=== PATIENT | male | born 1945 | race Caucasian/White ===

== ENCOUNTER → 2019-04-12 07:56 | Outpatient (BNVA) | payer MEDICARE, OTHER, SELFPAY | PROVIDERS: Family Provider Family Medicine; PCP Family Medicine; Visit Provider Urology | DX: R97.20 Elevated prostate specific antigen [PSA] (principal); N40.1 Benign prostatic hyperplasia with lower urinary tract symptoms; N40.0 Benign prostatic hyperplasia without lower urinary tract symptoms | CPT/HCPCS: 81001; 84153 ==

== ENCOUNTER → 2019-10-11 07:54 | Outpatient (BNVA) | payer MEDICARE, OTHER, SELFPAY | PROVIDERS: Family Provider Family Medicine; PCP Family Medicine; Visit Provider Urology | DX: N40.0 Benign prostatic hyperplasia without lower urinary tract symptoms (principal) | CPT/HCPCS: 81001 ==

== ENCOUNTER → 2019-10-27 15:09 | Outpatient (BNVA) | payer MEDICARE, OTHER, SELFPAY | PROVIDERS: Family Provider Family Medicine; PCP Family Medicine; Visit Provider Nurse Practitioner Family | DX: I50.32 Chronic diastolic (congestive) heart failure (principal); I25.10 Atherosclerotic heart disease of native coronary artery without angina pectoris; I25.2 Old myocardial infarction | CPT/HCPCS: 80048; 83880 ==

== ENCOUNTER 2019-11-21 15:27 | Outpatient (CLI) | payer MEDICARE, OTHER, SELFPAY ==
--- NOTE | 2019-11-21 15:45 | USCV_ITS ---
Vin Pena Age: 74 Gender: M : 1945 Exam Date: 11/21/2019 15:47 Ordering Phys: Catie Arora Technologist: Grant Moses [place] [facility] [place]: CHF BP: 180 / 100 HR: 99 Rhythm: Sinus Technical Quality: Adequate MEASUREMENTS (Male / Female) Normal Values 2D ECHO LV Diastolic Diameter PLAX 3.3 cm 4.2 - 5.9 / 3.9 - 5.3 cm LV Systolic Diameter PLAX 2.0 cm IVS Diastolic Thickness 1.2 cm 0.6 - 1.0 / 0.6 - 0.9 cm IVS Systolic Thickness 1.6 cm LVPW Diastolic Thickness 1.2 cm 0.6 - 1.0 / 0.6 - 0.9 cm LVPW Systolic Thickness 1.7 cm LVOT Diameter 2.0 cm LV Ejection Fraction 2D Teich 70.5 % LV Ejection Fraction MOD 2C 69.4 % LV Ejection Fraction 2C AL 70.0 % LA Diameter 3.5 cm Aorta at Sinotubular Diameter 1.5 cm M-MODE LV Diastolic Diameter MM 4.1 cm 4.2 - 5.9 / 3.9 - 5.3 cm LV Systolic Diameter MM 2.2 cm LV Ejection Fraction MM Teich 78.9 % IVS Diastolic Thickness MM 1.1 cm 0.6 - 1.0 / 0.6 - 0.9 cm IVS Systolic Thickness MM 1.7 cm LVPW Diastolic Thickness MM 1.4 cm 0.6 - 1.0 / 0.6 - 0.9 cm LVPW Systolic Thickness MM 1.7 cm RV Diastolic Diameter MM 1.5 cm Aortic Annulus Diameter 3.5 cm LA Ao Ratio MM 1.1 MV E Point Septal Separation 0.4 cm DOPPLER AV Peak Velocity 344.0 cm/s MV Area PHT 5.0 cm squared Mitral E to A Ratio 0.8 MV E' Velocity 47.5 cm/s Mitral E to MV E' Ratio 17.6 Mitral E to LV E' Lateral Ratio 12.0 Mitral E to LV E' Septal Ratio 32.5 TR Peak Velocity 276.0 cm/s TR Peak Gradient 30.5 mmHg TV Peak E Velocity 149.0 cm/s Right Atrial Pressure 3.0 mmHg Pulmonary Artery Systolic Pressu 33.5 mmHg PV Peak Velocity 108.0 cm/s FINDINGS Left Ventricle Normal left ventricular size and systolic function, EF 67 %. Mild left ventricular hypertrophy. No regional wall motion abnormalities. Grade I/IV diastolic dysfunction (abnormal relaxation filling pattern), normal to mildly elevated filling pressures. Right Ventricle Normal right ventricular size and systolic function. Right Atrium The right atrium is normal in size. Left Atrium Mildly increased left atrial size. Mitral Valve Thickened mitral valve. Mild mitral annular calcification. Aortic Valve Possibly moderate aortic valve stenosis with a peak velocity of 3.26 m/s, peak gradient of 43 and a mean gradient of 19 mmHg. The valve area was not calculated Tricuspid Valve No gross abnormalities noted Pulmonic Valve Pulmonic valve not well visualized. Pericardium Normal pericardium without effusion. Aorta Normal ascending aorta dimension. CONCLUSIONS Normal left ventricular size and systolic function, EF 67 %. Mild left ventricular hypertrophy. No regional wall motion abnormalities. Grade I/IV diastolic dysfunction (abnormal relaxation filling pattern), normal to mildly elevated filling pressures. Mildly increased left atrial size. Thickened mitral valve. Mild mitral annular calcification. Possibly moderate aortic valve stenosis with a peak velocity of 3.26 m/s, peak gradient of 43 and a mean gradient of 19 mmHg. The valve area was not calculated There is no pericardial effusion. There are no intracardiac masses. Compared to the study from 02/27/2018, there may not be a significant change Dr Jasmine Kemp MD FACC (Electronically Signed) Final Date: 21 November 2019 19:19 S
== END 2019-11-21 15:28 | disposition home or self-care (01) ==
LOC: RAD 15:31
PROVIDERS: PCP Family Medicine; Visit Provider Nurse Practitioner Family
DX: I50.9 Heart failure, unspecified (principal); I35.0 Nonrheumatic aortic (valve) stenosis; I05.9 Rheumatic mitral valve disease, unspecified
CPT/HCPCS: 93306

== ENCOUNTER 2019-12-27 08:15 | Outpatient (CLI) | payer MEDICARE, OTHER, SELFPAY ==
[2019-12-27 08:30] VITALS: BMI 31.7
--- NOTE | 2019-12-27 09:03 | ECG_ITS ---
[facility] Test Date: 2019-12-27 Pat Name: Vin Pena Department: Room: Gender: Male Relationship Executive: : 1945 Requested By: Catie Arora Order Number: [id number] Heather MD: Jasmine Kemp M.D. Interpretive Statements NAME OF STUDY: LEXISCAN SESTAMIBI STRESS TEST INDICATION: Fatigue; Shortness of Breath PROCEDURE: At the baseline, the EKG revealed sinus rhythm with a rate of 89 bpm. Poor R wave progression. Possible old inferior wall RI. The baseline blood pressure was 163/112 mm Hg with a heart rate of 88 beats/min. Lexiscan was infused over a period of 20 seconds. A total of 0.4 milligrams of Lexiscan was infused. The stress phase was continued for a total of 5 minutes. Heart rate at the end of the stress phase was 103 with a blood pressure 154/99. The EKG at the peak infusion revealed no significant changes. Sestamibi was injected 20 seconds after the Lexiscan infusion. Blood pressure at the end of the recovery phase was 159/104 with a heart rate of 102 per minute. CONCLUSION: 1. No significant EKG changes with the LexiScan infusion 2. No LexiScan induced chest pain or cardiac arrhythmia 3. Normal blood pressure and heart rate response 4. Sestamibi/sestamibi perfusion scan pending; see separate report. Electronically Signed On 12-27-2019 18:23:33 BRAILLE OPERATOR by Jasmine Kemp M.D. [email or web address]
--- NOTE | 2019-12-27 09:03 | NMCV_ITS ---
NM amalia perf SPECT r/s* [id number] Vin Pena Age: 74 Gender: M : 1945 Exam Date: 12/27/2019 09:12 Ordering Phys: Catie Arora Technologist: JEAN CARLOS Waldron Exam Location: [facility] Indications: FATIGUE STRESS TEST Please see separate stress test report in [facility] for full findings IMAGE PROTOCOL Rest/Stress 1 Lexiscan Day Radiopharmaceutical Dose (mCi) Administration Site Administered by Rest: Tc-99m 10.8 IV JEAN CARLOS Waldron Sestamibi Stress:Tc-99m 32.9 IV Effie Barrera, HEALTH INFORMATION PROVIDER Sestamibi Rest: 27-Dec-2019 60 Discovery 630 Stress: 27-Dec-2019 60 Discovery 630 0.4mg Lexiscan. Supine position only as patient was unable to lay prone. SPECT RESULTS Technical Quality: Good Raw Data Analysis: Normal Image Corrections: No attenuation or motion correction applied Summed Stress Score: 21 Summed Rest Score: 9 Summed Difference Score: 12 PERFUSION FINDINGS Moderate to large area of severely decreased tracer uptake in the basal mid and apical inferior, basal and mid inferolateral, mid anterolateral, apical lateral and LV apex. Significant reversibility was noted in these regions. FUNCTIONAL RESULTS (calculated via Gated SPECT) Stress Image LV EF (%): 70 Stress EDV (mL):91 TID: 1.09 Stress ESV (mL):27 FUNCTIONAL FINDINGS: Segmental wall motion analysis revealing no gross wall motion of normalities. IMPRESSIONS 1. Myocardial perfusion may revealing moderate to large area of severely decreased tracer uptake in the inferior, inferolateral, anterolateral and apical regions with significant reversibility, suggestive of myocardial scarring with ischemia in the distribution of the right coronary artery/circumflex artery. Small area of ischemia in the distribution of the left anterior descending artery. 2. Normal LV ejection fraction of 70%. 3. LV wall motion analysis revealing no gross wall motion abnormalities. 4. Normal LV volume. No similar previous studies are available for comparison Dr Jasmine Kemp MD FAC (Electronically Signed) Final Date: 27 December 2019 12:31 S
--- NOTE | 2019-12-27 10:09 | SUR.PREOP ---
Patient report no pain or discomfort prior to the start of the procedure.
[2019-12-27] MEDS: regadenoson 0.4 Mg/5 ml Syringe IVP (10:10)
[2019-12-27 10:43] VITALS: BP 155/99; PULSE 99
== END 2019-12-27 08:16 | disposition home or self-care (01) ==
LOC: CDL 08:16
PROVIDERS: PCP Registered Nurse; Visit Provider Nurse Practitioner Family
DX: I25.10 Atherosclerotic heart disease of native coronary artery without angina pectoris (principal); R06.02 Shortness of breath; R53.83 Other fatigue
CPT/HCPCS: 78452; 93017; A9500; J2785

== ENCOUNTER 2020-01-11 10:21 | Outpatient (CLI) | payer MEDICARE, OTHER, SELFPAY ==
[2020-01-11 10:59] LABS: Basophils % 0.6 %; Eosinophils # 0.2 10^3/uL (0.0-0.8); Eosinophils % 3.4 %; Hematocrit 40.7 % (42.0-52.0); Hemoglobin 12.4 g/dL (11.7-16.6); Lymphocytes # 0.8 10^3/uL (0.8-4.8); Lymphocytes % 13.5 %; Mean Corpuscular HGB Conc 30.5 g/dL (30.0-36.0); Mean Corpuscular Hemoglobin 23.5 pg (28.0-34.0); Mean Corpuscular Volume 77.2 fL (80-94); Mean Platelet Volume 9.5 fL (7.4-10.4); Monocytes # 0.5 10^3/uL (0.2-0.9); Monocytes % 8.1 %; Neutrophils # 4.54 10^3/uL (1.8-7.7); Neutrophils % 73.8 %; Nucleated Red Blood Cells % 0 %; Platelet Count 252 10^3/cmm (130-400); Red Blood Count 5.27 10^6/uL (4.1-5.3); Red Cell Distribution Width 15.6 % (12.1-15.1); White Blood Count 6.2 10^3/uL (4.0-10.0)
[2020-01-11 11:17] LABS: Anion Gap 14.1 (5-19); Blood Urea Nitrogen 20 mg/dL (8-23); Calcium 9.2 mg/dL (8.5-10.5); Carbon Dioxide 29 mmol/L (22-29); Chloride 96 mmol/L (98-107); Glucose 285 mg/dL (65-115); Osmolality Calculated 295 mOsm/kg (285-295); Potassium 3.1 mmol/L (3.5-5.1); Sodium 136 mmol/L (136-145)
== END 2020-01-11 10:22 | disposition home or self-care (01) ==
PROVIDERS: PCP Registered Nurse; Visit Provider Nurse Practitioner Family
DX: I25.10 Atherosclerotic heart disease of native coronary artery without angina pectoris (principal); R94.39 Abnormal result of other cardiovascular function study
CPT/HCPCS: 36415; 80048; 85025; 87635

== ENCOUNTER 2020-01-16 06:50 | Day surgery (SDC) | payer MEDICARE, OTHER, SELFPAY ==
[2020-01-16] VITALS (12 sets, daily range): BP systolic 131–207; BP diastolic 83–116; PULSE 73–93; RESP 15–21; TEMP 36.7; O2SAT 17–100; BMI 31.8
--- NOTE | 2020-01-16 07:10 | XACV_ITS ---
Ht: 175 cm Wt: 98 kg BSA: 2.21 m2 Gender: Male : 1945 Any Known Allergies: Other Exam Priority: Routine Procedure(s): Procedure Description: Diagnostic procedure Procedure Description: Left Heart Catheterization Procedure Description: Left ventriculography Procedure Description: Coronary Angiography Diagnostic Cath Status: Elective Diagnostic Findings * LM has 0% stenosis. * LAD has 0% stenosis. * CX has 0% stenosis. * 1st OM: Severe 99% stenosis, SOURAV: 2 flow. * dRCA: Severe 100% stenosis, SOURAV: 0 flow. * 3rd OM to CIRC AV collateralization. * Coronary angiography shows right dominance. Interventional Findings * dRCA: 100% stenosis treated with AB MINI TREK 2.00X12 RX BALLOON. 0% residual stenosis, SOURAV: 3 flow. Conclusions 1. There is severe coronary artery disease with one vessel disease. 2. All florian are normal. 3. Hyperdynamic left ventricular systolic function. Ejection fraction of 70%. 4. dRCA was treated with Balloon. Recommendations * Continue current medical management and risk factor modification. Diagnostic RX Recommendation: medical therapy and/or counseling Ventriculography Ejection Fraction: 70.0 % Left Ventriculography Findings: * Hyperdynamic left ventricle function, left ventricle ejection fraction 70%. Pressures Phase:Rest AO : 149 / 94 ( 120 ) @ 3:49:00 AM 148 / 92 ( 118 ) @ 3:57:00 AM 171 / 90 ( 126 ) @ 4:17:00 AM 166 / 65 ( 115 ) @ 4:17:00 AM 171 / 92 ( 126 ) @ 4:17:00 AM LV : 192 / -5 / @ 4:15:00 AM 200 / -7 / @ 4:17:00 AM 202 / -6 / @ 4:17:00 AM Valves Phase:DefaultPhase AV : 31.0 @ 10:26:26 AM AV Mean Gradient: 28.0 @ 10:26:26 AM 28.0 @ 10:26:26 AM Clinical Evaluation EBL: 5mL-10mL Procedural Details Procedure Consent Obtained. Pre-Procedure Time Out. Identified patient by full name and date of as verbalized by the patient/guarantor. Does the consent match the physician's order: Yes. Accurate & Complete Informed Consent: Yes. Inpatient/Outpatient History & Physical on Chart: Yes. If H&P is completed, is and addenduem needed: No; If yes, is the addendum complete: N/A. Visualize and Verify Site with Patient/Guarantor: N/A. Relevant Radiology Images available: N/A. Pre-op teaching completed and patient verbalized understanding. The risks, benefits, and alternatives of sedation and/or procedure were discussed by physician. The patient agrees to continue. Procedure started. [facility] Clinical Fraility Score: 4: Vulnerable. Video Rental Clerk Indications: Worsening Angina, abnormal stress test. Chest Pain Symptom Assessment: Atypical Angina. Cardiovascular Instability: No. Correct patient, site and procedure confirmed by cath team. PERRLA. Strong, equal hand woodwinds teacher bilaterally. Lungs clear x 5 lobes. IV Site on Arrival: 18 gauge in the left forearm. IV Fluids: 0.9% NaCl at KVO. 0 mL infused prior to operations label clerk. Pre Procedural Pulses: right dorsalis pedis was Doppled. Pre Procedural Pulses: left dorsalis pedis was 2+. Pre Procedural Pulses: right posterior tibial was 1+. Pre Procedural Pulses: left posterior tibial was Doppled. Pre Procedural Pulses: bilateral radial was 3+. Oxygen started at 2liters/min via nasal canula. Pt and family unsure of home medications. Pt unable to give dates of last medication taken. Family unsure also. bilateral groins was prepped with chloroprep then draped in the usual sterile fashion. right radial was prepped with chloroprep then draped in the usual sterile fashion. Physician arrived. Equipment: 6F - Radial. Cardiac Cath Pack. ACIST Manifold Kit Model BT 2000. Heparinized Saline (2 units/mL), 1000 mL bag. Baseline sample Acquired. HR: 98 BPM. Physician scrubbed in. Immediate Pre-Procedure Time Out. Correct Patient: Yes; Correct Procedure: Yes; Correct Site: Yes; Correct Patient Position: Yes; Correct Supplies: Yes; Dried Flammable Prep: Yes; Blood Products Available: N/A;. Lidocaine 1% infiltrated to the right radial. Arterial access obtained. A 5 american TIG catheter in over wire. Glidewire inserted. Catheter redirected to the RCA. Catheter removed over the exchange wire. Inventory is CRD 6FR AL .75 GUIDE. Inventory is TR 180cm Runthrough NS extra floppy 0.014 wire. 6 american AL 0.75 guide catheter was inserted over the wire. Runthrough guidewire was advanced through the guide catheter to lesion in the mid RCA. Inflation number : 1 A AB MINI TREK 2.00X12 RX BALLOON was prepped and advanced across the Mid RCA. Balloon used to try to advance wire across lesion in the Mid RCA. Unable to cross lesion. Balloon removed. Balloon out. Wire out. Guide catheter out. A 5 american Angled Pig catheter in over wire. Wire out. EDP Sample taken: LV 192/-6,15; HR: 85 BPM; SpO2: 98%. LV gram performed in ISSA @ 10 mL/second for a total of 30 mL. EDP Sample taken: LV 200/-7,12; HR: 96 BPM; SpO2: 99%. Pullback taken: LV 202/-7,14; AO 171/90(126); Mean: 28mmHg, Peak to Peak: 31mmHg, SEP: 26sec/min; HR: 85 BPM; SpO2: 99%. Catheter removed over the exchange wire. Physician scrubbed out. A TR Band was successful obtaining hemostatsis at the Right Radial artery insertion site. TR band placed. Hemostasis obtained. Post Procedure: Pulses reassessed and unchanged. PERRLA. Strong, equal hand woodwinds teacher bilaterally. No VTE prophylaxis required. Medication's Wasted: Lidocaine 1% = 15 mL. Medication's Wasted: Heparin = 3000 units. Medication's Wasted: Nitro = 49.8 mg. Total IV fluids: 100 mL. Contrast type used: Omnipaque 300 mgI/mL, 500 mL bottle. Complications: none. Estimated blood loss: 5mL-10mL. Post-op diagnosis: severe obstructive CAD. Procedure completed. Patient transferred by stretcher to CPRU. Vital chart was stopped. Access Site Site: Right Radial artery Sheath Size: 6 Fr Hemostasis Method: TR Band Hemostasis Success: Successful Procedure Medications Start: 9:27 AM Stop: 9:27 AM Medication: Plavix Amount: 600 mg Route: P.O. Start: 9:29 AM Stop: 9:29 AM Medication: Versed Amount: 1 mg Route: I.V. Start: 9:29 AM Stop: 9:29 AM Medication: Fentanyl Amount: 50 mcg Route: I.V. Start: 9:43 AM Stop: 9:43 AM Medication: Nitrogylcerin Amount: 200 mcg Route: I.A. Start: 9:44 AM Stop: 9:44 AM Medication: Heparin Amount: 5000 units Route: I.V. Start: 9:51 AM Stop: 9:51 AM Medication: Versed Amount: 1 mg Route: I.V. Start: 9:51 AM Stop: 9:51 AM Medication: Fentanyl Amount: 50 mcg Route: I.V. Start: 9:56 AM Stop: 9:56 AM Medication: Heparin Amount: 3000 units Route: I.V. I, the attending physician, have reviewed and verified all procedure medications. Yes, all medications given per verbal order History/Risk Factors Hypertension: Yes Dyslipidemia: Yes Peripheral Arterial Disease (PAD): No Myocardial Infarction (DC): Yes Obesity: No Renal Disease: No Tobacco Use: Former Prior Interventions PCI: Yes CABG: No Valve Surgery: No Date of PCI: 12/20/2015 Report Signatures Finalized by Kristyn Ledezma MD on 01/29/2020 06:29 PM
[2020-01-16] MEDS: diphenhydrAMINE 50 mg Capsule PO (07:59)
--- NOTE | 2020-01-16 09:19 | P.HP_ITS ---
Providers/Chief Complaint Primary Care Provider: JONO Lou Chief Complaint: Left Cardiac Catheterization 97721 R94.39 History of Present Illness Vin Pena is a 74 year old male past medical history significant for history of PCI in 2016 with bare-metal stent for bifurcating LAD and PDA, history of anemia in the past, history of being on warfarin for history of moderate aortic stenosis, history of diabetes mellitus and hypertension for worsening of angina despite of optimization of medicine underwent stress test which showed moderate to large area of severely decreased tracer uptake in the inferior, inferolateral and anterolateral region suggestive of ischemia. It is the reason patient has been brought in here for left heart cath/PCI if indicated. Patient has been explained all risk benefit and alternative for the procedure he has been explained the risk of infection, hematoma, major and minor bleed, stroke, arrhythmia, requirement for urgent or emergent bypass and in worse case scenario . Patient declined the option of bypass. He agrees with rest of all above. He would like to proceed with PCI and left heart cath after understanding all risk and benefit in the presence of his daughter. Tammy ent is unsure of what kind of medicine he is taking there is no listing of warfarin or Coumadin but he was on clopidogrel which he stopped 5 to 6 days ago. I am going to load him with 600 mg of Plavix now. Review of Systems All/Imm: Denies: acute wheezing Medications/Allergies Home Medications Medication Instructions Recorded Confirmed Last Taken Type aspirin 81 mg tablet,delayed 81 mg PO DAILY 04/12/19 01/16/20 Unknown History release clopidogrel 75 mg tablet 75 mg PO DAILY 04/12/19 01/16/20 Unknown History famotidine 20 mg tablet 20 mg PO DAILY 04/12/19 01/16/20 Unknown History gabapentin 600 mg tablet 600 mg PO TID 04/12/19 01/16/20 Unknown History hydrochlorothiazide 25 mg tablet 25 mg PO DAILY 04/12/19 01/16/20 Unknown History lansoprazole 30 mg capsule,delayed 30 mg PO DAILY 04/12/19 01/16/20 Unknown History release metformin 500 mg tablet 500 mg PO BID 04/12/19 01/16/20 Unknown History primidone 50 mg tablet 50 mg PO DAILY tab 04/12/19 01/16/20 Unknown History simvastatin 40 mg tablet 40 mg PO DAILY 04/12/19 01/16/20 Unknown History amlodipine 5 mg tablet 5 mg PO DAILY #90 tab 10/04/19 01/16/20 Unknown Rx tamsulosin 0.4 mg capsule 0.4 mg PO BID #180 cap 10/11/19 01/16/20 Unknown Rx furosemide 40 mg tablet 40 mg PO DAILY #90 tab 10/20/19 01/16/20 Unknown Rx isosorbide mononitrate 30 mg 30 mg PO DAILY #90 tab 10/20/19 01/16/20 Unknown Rx tablet,extended release 24 hr potassium chloride 20 mEq 20 meq PO DAILY #90 tab 10/20/19 01/16/20 Unknown Rx tablet,extended release finasteride 5 mg tablet 5 mg PO DAILY #90 tab 10/21/19 01/16/20 Unknown Rx carvedilol 12.5 mg tablet 25 mg PO BID tab 11/10/19 01/16/20 Unknown History losartan 100 mg tablet 150 mg PO DAILY #135 tab 12/19/19 01/16/20 Unknown Rx Allergies Allergy/AdvReac Type Severity Reaction Status Date / Time naproxen [From Naprosyn] AdvReac NA Verified 12/27/19 08:31 simvastatin [From Zocor] AdvReac NA Verified 12/27/19 08:31 PFSH Acute PFSH: Medical History (Updated 01/16/20 @ 09:28 by Kristyn Ledezma MD) Aortic stenosis BPH w/o urinary obs/LUTS CHF (congestive heart failure) Coronary artery disease Diabetes mellitus Elevated PSA History of non-ST elevation myocardial infarction (NSTEMI) HTN (hypertension) Lower urinary tract symptoms (LUTS) Renal calculi Surgical History H/O hernia repair H/O lithotripsy S/P eye surgery S/P tonsillectomy Family History Father , 80 CAD (coronary artery disease) Hypertension Mother , 90 No problems noted. Social History Smoking and tobacco status: former smoker Alcohol intake: never Marital status: Current occupational status: retired History of recent travel: No Vitals/I&O/Wt Last Vital Signs Temp 98.0 F 01/16/20 07:50 Pulse 86 01/16/20 07:50 Resp 18 01/16/20 07:50 BP 207/115 01/16/20 07:50 Pulse Ox 100 01/16/20 07:50 Weight last 48 hrs Weight 216 lb Physical Exam Narrative: EXAM NARRATIVE: GENERAL: Patient is alert, awake and oriented x3. NECK: No jugular vein distension. HEENT: No cyanosis. No icterus. No pallor. HEART: Regular S1 and S2. 2/6 murmur, rub or gallop. LUNGS: Clear to auscultate bilaterally. ABDOMEN: Soft, nontender and nondistended. Positive bowel sounds. No guarding, rebound or tenderness. CENTRAL NERVOUS SYSTEM: Grossly nonfocal. EXTREMITIES: Lower extremities without edema bilaterally. Pulses palpable in the lower extremities, both dorsalis pedis and posterior tibial. A&P Assessment and plan (1) Abnormal stress test: As above patient has abnormal stress test for worsening of angina and shortness of breath despite of optimization of medicine. We will proceed with left heart cath and PCI if indicated. Status: Acute (2) Coronary artery disease: Patient has history of coronary artery disease with PDA and mid LAD bare- metal stent 6 to 7 years ago. He is unsure of medicine he is taking he is a poor historian. According to him he has stopped everything 5 days ago. I am patient has stopped Plavix as well I will therefore load him with 600 mg of Plavix Status: Acute Qualifiers: Coronary Disease-Associated Artery/Lesion type: [place] artery [place] vs. transplanted heart: [place] heart Associated angina: with other forms of angina Qualified Code(s): I25.118 - Atherosclerotic heart disease of [place] coronary artery with other forms of angina pectoris (3) CHF (congestive heart failure): Well compensated. Continue meds Status: Acute Qualifiers: Heart failure type: diastolic Heart failure chronicity: chronic Qualified Code(s): I50.32 - Chronic diastolic (congestive) heart failure (4) HTN (hypertension): Uncontrolled systolic blood pressure around 200 we will sedate him and see how he does otherwise I am able to give him nitro and hydralazine. Status: Acute Qualifiers: Hypertension type: essential hypertension Qualified Code(s): I10 - Essential (primary) hypertension (5) Aortic stenosis: Patient has mild to moderate aortic stenosis. Status: Acute Qualifiers: Cardiac valve disease etiology: nonrheumatic Qualified Code(s): I35.0 - Nonrheumatic aortic (valve) stenosis Attestations Medical Necessity Statement*: Expecting his stay not to cross more than 1 midnight. Coding Level of Care Code New Pt Acute Operations Management Trainee for Michaelg Fwd Patient Type New History Detailed Exam Detailed Medical Decision Making Moderate Complexity Diagnoses Abnormal stress test R94.39 Coronary artery disease I25.118 Coronary Disease-Associated Artery/Lesion type: [place] artery [place] vs. transplanted heart: [place] heart Associated angina: with other forms of angina CHF (congestive heart failure) I50.32 Heart failure type: diastolic Heart failure chronicity: chronic HTN (hypertension) I10 Hypertension type: essential hypertension Aortic stenosis I35.0 Cardiac valve disease etiology: nonrheumatic
--- NOTE | 2020-01-16 09:32 | W.PM.OPSUD ---
Surgery/Procedure H&P Update DATE OF PROCEDURE: January 16, 2020 DATE H&P PERFORMED: 01/16/20 H&P UPDATE INFORMATION: I have examined patient prior to procedure and No changes to prior documentation PREOP DIAGNOSIS: Abnormal stress test, angina despite of medicine PLANNED PROCEDURE: Operation Date: 01/16/20 08:30 Proposed Procedures p Left Cardiac Catheterization 30281 R94.39(Left) - Kristyn Ledezma MD PATIENT REASSESSED PRIOR TO SEDATION, WITH NO CHANGE NOTED: Yes PHYSICAL EXAM: alert, oriented x 3 and clear to auscultation bilaterally AIRWAY EVAL/ANESTHESIA PLAN: ASA II, Risks, benefits & alternatives of sedation and/or procedure discussed and Patient agrees to continue as planned
--- NOTE | 2020-01-16 10:30 | PC.NURSE ---
post-op received pt from diagnostic [facility]. pt alert and oriented x3. complaining of no pain. tr band in place with no bleeding or hematoma noted. pt educated on restrictions of right arm. pt acknowledges understanding. pt placed on vital monitoring. bed down and locked, call light within reach.
== END 2020-01-16 14:32 | disposition home or self-care (01) ==
PROVIDERS: PCP Registered Nurse; Visit Provider Internal Medicine Cardiovascular Disease
DX: I25.118 Atherosclerotic heart disease of native coronary artery with other forms of angina pectoris (principal); I50.32 Chronic diastolic (congestive) heart failure; I11.0 Hypertensive heart disease with heart failure; E78.5 Hyperlipidemia, unspecified; I25.2 Old myocardial infarction; Z87.891 Personal history of nicotine dependence; E11.9 Type 2 diabetes mellitus without complications; Z79.82 Long term (current) use of aspirin; N40.0 Benign prostatic hyperplasia without lower urinary tract symptoms; I35.0 Nonrheumatic aortic (valve) stenosis
CPT/HCPCS: 12345; 36415; 92920; 93452; C1725; C1769; C1887; C1894; J1644; J2250; J3010; J3490; J7030; Q0163; Q9967

== ENCOUNTER → 2020-01-23 11:34 | Outpatient (BNVA) | payer MEDICARE, OTHER, SELFPAY | PROVIDERS: PCP Registered Nurse; Visit Provider Nurse Practitioner Family | DX: I25.118 Atherosclerotic heart disease of native coronary artery with other forms of angina pectoris (principal) | CPT/HCPCS: 80048 ==

== ENCOUNTER → 2020-02-01 12:42 | Outpatient (BNVA) | payer MEDICARE, OTHER, SELFPAY | PROVIDERS: PCP Registered Nurse; Visit Provider Internal Medicine Critical Care Medicine | DX: R06.02 Shortness of breath (principal) | CPT/HCPCS: 87635 ==

== ENCOUNTER 2020-02-07 10:44 | Outpatient (CLI) | payer MEDICARE, OTHER, SELFPAY ==
--- NOTE | 2020-02-07 13:01 | PFTS_ITS ---
Date of Study:02/07/20 Date of Dictation: 02/07/2020 MECHANICS: Forced vital capacity (FVC) is reduced 79%. Forced expiratory volume in one second (FEV1) is moderately reduced 59%. FEV1/FVC is reduced. No significant response to bronchodilators. FLOW VOLUME LOOP: Distal scooping of expiratory limb suggestive of obstruction of small airways . LUNG VOLUMES: Not measured DIFFUSING CAPACITY FOR CARBON MONOXIDE: Mildly reduced 74% . INTERPRETATION: The spirometry consistent with obstructive ventilatory defect with mild reduction of gas transfer. Lung volumes not measured. No significant response to bronchodilators noted. Please correlate clinically MTDD
== END 2020-02-07 10:45 | disposition home or self-care (01) ==
LOC: RT 10:51
PROVIDERS: PCP Registered Nurse; Visit Provider Internal Medicine Critical Care Medicine
DX: R06.02 Shortness of breath (principal)
CPT/HCPCS: 94060; 94729; J7611

== ENCOUNTER 2020-03-08 14:08 | Outpatient (CLI) | payer MEDICARE, OTHER, SELFPAY ==
--- NOTE | 2020-03-08 14:30 | CT_ITS ---
WS: [id number] CT CHEST TECHNIQUE: Noncontrast CT of the chest with coronal and sagittal reformatted images. CLINICAL INFORMATION: Shortness of breath COMPARISON: None. DLP: 751.[address] scans at [facility] use at least one of these dose optimization techniques: automat ed exposure control; mA and/or kV adjustment per patient size (includes targeted exams where dose is matched to clinical indication); or iterative reconstruction. FINDINGS: Moderate chronic emphysematous changes. No acute pulmonary infiltrates. Subsegmental atelectasis in b oth lower lobes medially. Calcified granuloma right middle lobe. Fibrosis in the lingula. Normal tatianna aneta thoracic aorta. Coronary calcification. No mediastinal or hilar lymphadenopathy. No axillary lymp hadenopathy. Moderate to large esophageal hiatal hernia. Small amount of fluid adjacent to the diaphr agmatic hernia. A few adjacent lymph nodes nonspecific but likely reactive. Adrenal glands are normal. Splenic granulomas. Moderate thoracic kyphosis. Chronic anterior wedging i n the mid thoracic spine. Endplate Schmorl's nodes. Anterior hypertrophic changes. . CT/CT chest wo con [id number] IMPRESSION: 1. Moderate chronic emphysematous changes. 2. No acute pulmonary infiltrates. 3. No suspicious pulmonary parenchymal normalities. 4. Subsegmental atelectasis and fibrosis in the lingula and both lower lobes. 5. Moderate to large esophageal hiatal hernia. 6. Coronary calcification.
== END 2020-03-08 14:09 | disposition home or self-care (01) ==
LOC: RADWPI 14:12
PROVIDERS: PCP Registered Nurse; Visit Provider Internal Medicine Critical Care Medicine
DX: R06.02 Shortness of breath (principal); I25.10 Atherosclerotic heart disease of native coronary artery without angina pectoris; K44.9 Diaphragmatic hernia without obstruction or gangrene; J98.11 Atelectasis
CPT/HCPCS: 71250

== ENCOUNTER 2022-05-18 07:50 | Inpatient (IN) | payer MEDICARE, OTHER, SELFPAY ==
[2022-05-18] VITALS (18 sets, daily range): BP systolic 99–190; BP diastolic 62–146; PULSE 77–133; RESP 12–34; TEMP 36.6–37.4; O2SAT 85–96; BMI 32.5
--- NOTE | 2022-05-18 07:54 | XRR_ITS ---
PROCEDURE INFORMATION: Exam: XR Chest Exam date and time: 05/18/2022 8:25 AM Age: 77 years old Clinical indication: Shortness of breath; Additional info: SOB TECHNIQUE: Imaging protocol: Radiologic exam of the chest. Views: 1 view. Other technique: Frontal portable upright view of the chest. COMPARISON: CT chest con [id number] 03/08/2020 2:38 PM FINDINGS: Tubes, catheters and devices: EKG leads are present overlying the chest. EKG leads are present overlying the chest. Lungs: The pulmonary vasculature is mildly congested. Bibasilar pulmonary partial atelectasis. The lungs are otherwise peripherally clear bilaterally. Pleural spaces: Small bilateral pleural effusions. No pneumothorax. Heart/Mediastinum: Mediastinum: Stable. Bones/joints: Stable. XR/XR chest 1V portable [id number] IMPRESSION: 1. Mild pulmonary vascular congestion. 2. Bibasilar pulmonary partial atelectasis. Superimposed pneumonitis is difficult to exclude. Clinical correlation is recommended. 3. Small bilateral pleural effusions.
--- NOTE | 2022-05-18 07:56 | ED_ITS ---
HPI - SOB/Dyspnea General: Chief Complaint: Shortness of Breath/Dyspnea Stated Complaint: SOB Time Seen by Provider: 05/18/22 07:51 Source: patient and EMS Mode of arrival: EMS Limitations: no limitations History of Present Illness: HPI Narrative: 77-year-old male has a history of COPD along with CHF and hypertension states that over last 2 weeks he has had increasing shortness of breath along with weakness he states that anytime he ambulates at all he gets severely short of breath he had some increased swelling to his legs as well. I do not believe he has been compliant with his meds his med list here shows multiple meds including Lasix and HCTZ and blood pressure med he states he brought his meds he takes it all he has is metformin and pain medicines and is bag. He is not a very good historian he was hypoxic per EMS they placed him on 3 L he denies any chest pain denies any cough or fever does severe shortness of breath and swelling Associated symptoms: Deny abdominal pain, chest pain, fever(s), nausea or vomiting Review of Systems Const: Denies: fever(s), chills, body aches or change in appetite Eyes: Denies: blurry vision or eye discomfort ENMT: Denies: throat pain or dental pain Card: Denies: chest pain Resp: Reports: dyspnea GI: Denies: abdominal pain, nausea, vomiting or diarrhea : Denies: dysuria Musc: Reports: extremity swelling Skin/Breast: Denies: rash Neuro: Denies: headache(s) Psych: Denies: depression Abram/Lymph: Denies: easy bruising All/Imm: Denies: urticaria PFSH ED PFSH: Medical History Aortic stenosis BPH w/o urinary obs/LUTS CHF (congestive heart failure) Coronary artery disease Diabetes mellitus Elevated PSA History of non-ST elevation myocardial infarction (NSTEMI) HTN (hypertension) Lower urinary tract symptoms (LUTS) Renal calculi Surgical History H/O hernia repair H/O lithotripsy S/P eye surgery S/P tonsillectomy Family History Father , 80 CAD (coronary artery disease) Hypertension Mother , 90 No problems noted. Social History Smoking and tobacco status: former smoker Quit status (tobacco): has quit using tobacco Year quit tobacco: 1990 - 1PPD x 7 Years Second hand smoke exposure: Yes Smoking risk assessment/counseling performed?: No Alcohol intake: never Lives independently: Yes Household members: spouse Marital status: Current occupational status: retired Current gender identity: Male Physical Exam Const: COMMON NORMALS: patient oriented x3 HENMT: COMMON NORMALS: normocephalic and atraumatic HEAD & SCALP: normocephalic and atraumatic Eye: COMMON NORMALS: Equal, round and reactive pupils present and EOMs intact bilaterally PUPIL: Yes Equal, round and reactive pupils present Neck/C-Spine: COMMON NORMALS: full ROM and supple Chest: COMMONS NORMALS: normal inspection of the chest and normal palpation of entire chest wall Resp: COMMON NORMALS: No retractions and No use of accessory muscles EFFORT & INSPECTION: Yes respiratory distress AUSCULTATION: rales Cardio: COMMON NORMALS: regular rate, regular rhythm and No murmurs present (Cardio) RATE: regular rate RHYTHM: regular rhythm GI: COMMON NORMALS: Normal to inspection, nondistended, normoactive bowel sounds present, Soft to palpation, non-tender and no masses PALPATION: Yes Soft to palpation Extremity: COMMON NORMALS: full ROM OTHER: 2+ edema Neuro: COMMON NORMALS: patient oriented x3, moves all extremities and no focal motor deficits Psych: COMMON NORMALS: mental status grossly normal, Normal thought process present and cooperative THOUGHT PROCESS: Normal thought process present Skin: COMMON NORMALS: no rashes or lesions noted and no wounds GENERAL SKIN EXAM: no rashes or lesions noted Course Vital Signs: Vital signs: Vital Signs Temperature 98.0 F 05/18/22 07:50 Pulse Rate 97 05/18/22 08:38 Respiratory Rate 16 05/18/22 08:32 Blood Pressure 153/110 05/18/22 07:50 Pulse Oximetry 90 05/18/22 08:32 Oxygen Delivery Me thod 05/18/22 08:32 MDM - SOB/Dyspnea Medical Decision Making Patient presents for CHF exacerbation likely due to noncompliance of his meds he does have a pleural effusion with elevated BNP and lower extremity edema he is in A-fib here as well his blood pressure and heart rate here is improved after labetalol will give him Jennie spoke to hospitalist will admit to the cardiac stepdown. Lab Data 05/18/22 08:07 05/18/22 08:07 Labs/Radiology: Laboratory Results WBC 7.2 10^3/uL (4.0-10.0) 05/18/22 08:07 RBC 4.40 10^6/uL (4.1-5.3) 05/18/22 08:07 Hgb 9.3 g/dL (11.7-16.6) L 05/18/22 08:07 Hct 32.1 % (42.0-52.0) L 05/18/22 08:07 MCV 73.0 fl (80-94) L 05/18/22 08:07 MCH 21.1 pg (28.0-34.0) L 05/18/22 08:07 MCHC 29.0 g/dL (30.0-36.0) L 05/18/22 08:07 RDW 16.6 % (12.1-15.1) H 05/18/22 08:07 Plt Count 298 10^3/cmm (130-400) 05/18/22 08:07 MPV 9.5 fL (7.4-10.4) 05/18/22 08:07 Neut % (Auto) 75.7 % 05/18/22 08:07 Lymph % (Auto) 11.4 % 05/18/22 08:07 [place] % (Auto) 10.6 % 05/18/22 08:07 Eos % (Auto) 1.4 % 05/18/22 08:07 Baso % (Auto) 0.6 % 05/18/22 08:07 Neut # (Auto) 5.44 10^3/uL (1.8-7.7) 05/18/22 08:07 Lymph # (Auto) 0.8 10^3/uL (0.8-4.8) 05/18/22 08:07 [place] # (Auto) 0.8 10^3/uL (0.2-0.9) 05/18/22 08:07 Eos # (Auto) 0.1 10^3/uL (0.0-0.8) 05/18/22 08:07 Baso # (Auto) 0.0 10^3/uL (0.0-0.1) 05/18/22 08:07 Nucleated RBC % (auto) 0 % 05/18/22 08:07 Nucleated RBCs # 0.0 /100WBC 05/18/22 08:07 Specimen Type Arterial 05/18/22 08:04 Sample Site Radial, right 05/18/22 08:04 ABG pH 7.39 (7.35-7.45) 05/18/22 08:04 ABG pCO2 36.1 mmHg (35-45) 05/18/22 08:04 ABG pO2 62.7 mmHg (80.0-100.0) L 05/18/22 08:04 ABG HCO3 21.8 mmol/L (22-26) L 05/18/22 08:04 ABG Base Excess -2.8 mmol/L (-2.0-2.0) L 05/18/22 08:04 Harlan Test Pos 05/18/22 08:04 Hematocrit 30.0 % (42-52) L 05/18/22 08:04 O2 Delivery Device None 05/18/22 08:04 FiO2 21.0 % 05/18/22 08:04 Paper Twister ID [email or web address] 05/18/22 08:04 Sodium 140 mmol/L (136-145) 05/18/22 08:07 Potassium 3.7 mmol/L (3.5-5.1) 05/18/22 08:07 Chloride 110 mmol/L (98-107) H 05/18/22 08:07 Carbon Dioxide 21 mmol/L (22-29) L 05/18/22 08:07 Anion Gap 12.7 (5-19) 05/18/22 08:07 BUN 32 mg/dL (8-23) H 05/18/22 08:07 Creatinine 1.4 mg/dL (0.7-1.2) H 05/18/22 08:07 GFR Calculation Not Reportable 05/18/22 08:07 Glucose 121 mg/dL (65-115) H 05/18/22 08:07 Calculated Osmolality 298 mOsm/kg (285-295) H 05/18/22 08:07 Calcium 8.1 mg/dL (8.5-10.5) L 05/18/22 08:07 Total Bilirubin 0.4 mg/dL (0.15-1.2) 05/18/22 08:07 AST 26 U/L (0-40) 05/18/22 08:07 ALT 43 U/L (0-41) H 05/18/22 08:07 Alkaline Phosphatase 71 U/L (40-130) 05/18/22 08:07 Troponin T Baseline 77 ng/L (0-15) H 05/18/22 08:07 NT-Pro-B Natriuret Pep 7577 pg/mL (0-450) H 05/18/22 08:07 Total Protein 5.7 g/dL (6.6-8.7) L 05/18/22 08:07 Albumin 3.5 g/dL (3.5-5.2) 05/18/22 08:07 Globulin 2.2 g/dL (1.3-4.6) 05/18/22 08:07 EKG Data EKG 1: I personally reviewed and interpreted this EKG as follows: EKG Interpretation Date: 05/18/22 EKG interpretation time: 08:34 Interpretation: afib hr [address] or t wave abnormalities qrs 90 qtc 411 Critical Care Time Critical Care Time: Critical Care Time: Yes Total Critical Care Time: 40 Attestation: The high probability of a clinically significant, sudden or life threatening deterioration of the patient's cv system(s) required my full and direct attention, intervention and personal management. The critical care time is as shown. This time is in addition to time spent performing any reported procedures but includes the following: [x] Data and vital sign review and interpretation [x] Patient assessment, examination and intervention [x] Documentation [x] Medication orders and management Discharge Plan Discharge Patient Disposition: Admitted As Inpatient Clinical Impression: Acute exacerbation of congestive heart failure, Atrial fibrillation, Acute respiratory failure with hypoxia Condition: Stable Coding Level of Care Code ED Earth Science Technician for Syd Witt
[2022-05-18] MEDS: FUROsemide 10 mg/mL SDV 4mL 40 MG IVP ×3 (08:03→18:09)
[2022-05-18 08:14] LABS: Basophils % 0.6 %; Eosinophils # 0.1 10^3/uL (0.0-0.8); Eosinophils % 1.4 %; Hematocrit 32.1 % (42.0-52.0); Hemoglobin 9.3 g/dL (11.7-16.6); Lymphocytes # 0.8 10^3/uL (0.8-4.8); Lymphocytes % 11.4 %; Mean Corpuscular Hemoglobin 21.1 pg (28.0-34.0); Mean Platelet Volume 9.5 fL (7.4-10.4); Monocytes # 0.8 10^3/uL (0.2-0.9); Monocytes % 10.6 %; Neutrophils # 5.44 10^3/uL (1.8-7.7); Neutrophils % 75.7 %; Nucleated Red Blood Cells % 0 %; Platelet Count 298 10^3/cmm (130-400); Red Cell Distribution Width 16.6 % (12.1-15.1); White Blood Count 7.2 10^3/uL (4.0-10.0)
[2022-05-18 08:15] LABS: ABG PCO2 36.1 mmHg (35-45); ABG PH Result 7.39 (7.35-7.45); Base Excess ABG -2.8 mmol/L (-2.0-2.0); Blood Gas Allen Test Pos; Blood Gas Sample Site Radial, right; Blood Gas Sample Type Arterial; HCO3 ABG 21.8 mmol/L (22-26); PO2 ABG 62.7 mmHg (80.0-100.0)
--- NOTE | 2022-05-18 08:34 | ECG_ITS ---
[facility] Test Date: 2022-05-18 Pat Name: Vin Pena Department: Room: Gender: Male Apparel Stock Checker: : 1945 Requested By: Florinda Light Order Number: [id number] Reading MD: Mack Orozco Measurements Intervals [place] Rate: 100 P: 0 [place]: 0 QRS: -11 QRSD: 90 T: 4 QT: 354 QTc: 457 Interpretive Statements ATRIAL FIBRILLATION WITH RAPID VENTRICULAR RESPONSE MODERATE T-WAVE ABNORMALITY, CONSIDER LATERAL ISCHEMIA [-0.1+ mV T-WAVE IN I/aVL/V5/V6] Compared to ECG 03/24/2018 11:44:09 T-wave abnormality now present Possible ischemia now present Sinus rhythm no longer present First degree AV block no longer present Myocardial infarct finding no longer present Electronically Signed On 05-18-2022 19:04:24 CDT by Mack Orozco [email or web address]/store/OM/[id number]
[2022-05-18] MEDS: albuterol 2.5 mg/3 mL Neb INHALATION (08:37)
[2022-05-18 08:42] LABS: Troponin(5th) Baseline 77 ng/L (0-15)
[2022-05-18] MEDS: labetalol 5 mg/mL SDV 20mL 10 MG IVP (08:46)
[2022-05-18 08:52] LABS: Alanine Aminotransferase 43 U/L (0-41); Albumin Level 3.5 g/dL (3.5-5.2); Alkaline Phosphatase 71 U/L (40-130); Anion Gap 12.7 (5-19); Aspartate Amino Transferase 26 U/L (0-40); Blood Urea Nitrogen 32 mg/dL (8-23); Calcium 8.1 mg/dL (8.5-10.5); Carbon Dioxide 21 mmol/L (22-29); Chloride 110 mmol/L (98-107); Globulin 2.2 g/dL (1.3-4.6); Glucose 121 mg/dL (65-115); NT Pro B Type Natriuretic Pept 7577 pg/mL (0-450); Osmolality Calculated 298 mOsm/kg (285-295); Potassium 3.7 mmol/L (3.5-5.1); Sodium 140 mmol/L (136-145); Total Bilirubin 0.4 mg/dL (0.15-1.2); Total Protein 5.7 g/dL (6.6-8.7)
[2022-05-18] MEDS: labetalol 5 mg/mL SDV 20mL 20 MG IVP (09:07)
--- NOTE | 2022-05-18 09:22 | PC.PHAR ---
pt states he takes care of his own medications-pt states 6-7 months ago he went through his meds and picked out what he thought he needed to be taking-pt brought in 4 med bottles and states that is the only medications he is taking pt states he is only taking lansoprazole 30mg qam (ext shows filled 02/04/23 90d/s)-metformin 500mg bid (ext shows filled 02/04/23 90d/s)-norco 5-325mg 1 tab po tid prn (ext shows filled 04/03/22 30d/s)and flomax 0.4mg bid (ext shows filled 03/03/22 30d/s)-pt states he did have an old rx of lasix that he took one tab before coming in ext shows 40mg on hold 04/22/22 [place] not open to verify directions-ext also shows losartan 100mg 04/22/22 pt states not taking rx written 04/02/22 150mg daily-pt states he is not taking primidone 50mg daily ext med history shows last filled 04/02/22 90d/s-
--- NOTE | 2022-05-18 10:06 | PM.HP ---
Providers/Chief Complaint Admitting Physician: Domingo Armendariz MD Primary Care Provider: Ny Elizabeth DO Chief Complaint: SOB History of Present Illness Vin Pena is a 77 year old male with past medical history of hypertension coronary artery disease CHF COPD aortic stenosis came in with chief complaint of worsening shortness of breath worsening bilateral lower extremity swelling PND orthopnea, symptoms have been going on for the last 2 months and since then it has progressively worsened, he has denied any chest pain palpitation, fever cough. X-ray chest: Showed mild pulmonary vascular congestion,?Small bilateral pleural effusions. EKG sinus rhythm with PACs Pertinent labs: WBC :7.2, H&H 9.3/32,PLT : 298 , serum sodium 140, serum potassium 3.7, BUN 32, serum creatinine 1.4 Troponin trend: 77-85,87 , proBNP: 7577 Patient was given Lasix 80 IV in the ER, he was also given , labetalol 30 IV in the ER he was also having hypertensive urgency. Review of Systems General: Reports: 10 or more systems reviewed and unremarkable except in HPI and below Const: Denies: fever(s), chills, body aches, change in appetite or diaphoresis Card: Reports: edema, swelling of feet/ankles, dyspnea on exertion and orthopnea; Denies: palpitations or leg pain with exertion Resp: Reports: dyspnea; Denies: productive cough, wheezing or pain on inspiration GI: Denies: abdominal pain, nausea, vomiting, diarrhea or constipation : Denies: flank pain or difficulty urinating Musc: Reports: extremity swelling; Denies: back pain or extremity pain Neuro: Denies: headache(s), difficulty walking or confusion Medications/Allergies Home Medications Medication Instructions Recorded Confirmed Last Taken Type lansoprazole 30 mg capsule,delayed 30 mg PO QAM 04/12/19 05/18/22 Unknown History release metformin 500 mg tablet 500 mg PO BID 04/12/19 05/18/22 Unknown History furosemide 40 mg tablet (Lasix) 40 mg PO DAILY PRN Edema 05/18/22 05/18/22 05/18/22 History hydrocodone 5 mg-acetaminophen 325 1 tab PO TID PRN Pain 05/18/22 05/18/22 Unknown History mg tablet tamsulosin 0.4 mg capsule 0.4 mg PO BID 05/18/22 05/18/22 Unknown History Allergies Allergy/AdvReac Type Severity Reaction Status Date / Time naproxen [From Naprosyn] AdvReac NA Verified 05/18/22 09:22 simvastatin [From Zocor] AdvReac NA Verified 05/18/22 09:22 PFSH Acute PFSH: Medical History Aortic stenosis BPH w/o urinary obs/LUTS CHF (congestive heart failure) Coronary artery disease Diabetes mellitus Elevated PSA History of non-ST elevation myocardial infarction (NSTEMI) HTN (hypertension) Lower urinary tract symptoms (LUTS) Renal calculi Surgical History H/O hernia repair H/O lithotripsy S/P eye surgery S/P tonsillectomy Family History Father , 80 CAD (coronary artery disease) Hypertension Mother , 90 No problems noted. Social History Smoking and tobacco status: former smoker Quit status (tobacco): has quit using tobacco Year quit tobacco: 1990 - PD x 7 Years Second hand smoke exposure: Yes Smoking risk assessment/counseling performed?: No Alcohol intake: never Lives independently: Yes Household members: spouse Marital status: Current occupational status: retired Current gender identity: Male Vitals/I&O/Wt Last Vital Signs Temp 98.0 F 05/18/22 07:50 Pulse 81 05/18/22 09:04 Resp 18 05/18/22 09:04 BP 190/133 05/18/22 09:04 Pulse Ox 91 05/18/22 09:04 O2 Del Method 05/18/22 09:04 Weight last 48 hrs Weight 99.79 kg Physical Exam Const: COMMON NORMALS: patient oriented x3 HENMT: COMMON NORMALS: normocephalic and atraumatic HEAD & SCALP: normocephalic and atraumatic Resp: COMMON NORMALS: clear to auscultation bilaterally AUSCULTATION: clear to auscultation bilaterally OTHER: Diminished air entry bilateral Cardio: COMMON NORMALS: No gallops present (Cardio), No murmurs present (Cardio), No rub (Cardio) and Peripheral pulses 2+ throughout PERIPHERAL PULSES: Peripheral pulses 2+ throughout GI: COMMON NORMALS: Normal to inspection, nondistended, normoactive bowel sounds present, Soft to palpation, non-tender, No hepatosplenomegaly present and no masses AUSCULTATION: Yes normoactive bowel sounds PALPATION: Yes Soft to palpation and Yes No hepatosplenomegaly present RECTAL EXAM: Yes deferred Extremity: NARRATIVE EXTREMITY EXAM: 3+ bilateral lower extremity pitting edema up to knees Neuro: COMMON NORMALS: patient oriented x3 Data 05/18/22 08:07 05/18/22 08:07 A&P Assessment and plan (1) Acute exacerbation of congestive heart failure: (2) Atrial fibrillation: (3) COPD (chronic obstructive pulmonary disease): (4) HTN (hypertension): Qualifiers: Hypertension type: essential hypertension Qualified Code(s): I10 - Essential (primary) hypertension (5) Aortic stenosis: Qualifiers: Cardiac valve disease etiology: nonrheumatic Qualified Code(s): I35.0 - Nonrheumatic aortic (valve) stenosis (6) Coronary artery disease: Qualifiers: Associated angina: with other forms of angina Coronary Disease-Associated Artery/Lesion type: [place] artery [place] vs. transplanted heart: blackfeet heart Qualified Code(s): I25.118 - Atherosclerotic heart disease of black[place] coronary artery with other forms of angina pectoris (7) Anemia: (8) Aortic stenosis: Plan 77 year old male with past medical history of hypertension coronary artery disease CHF COPD aortic stenosis came in with chief complaint of worsening shortness of breath worsening bilateral lower extremity swelling PND orthopnea, symptoms have been going on for the last 2 months and since then it has progressively worsened. Assessment: Decompensated heart failure with preserved ejection fraction. Follow repeat 2D echo Continue Lasix 60 IV twice daily Monitor intake output charting Monitor daily weight Fluid restriction to 1 L Telemetry monitoring Monitor electrolytes Continue telemetry monitoring Hypertensive urgency: We will reduce blood pressure by 25% in the first 1 to 2 hours, and then slowly decrease the blood pressure over the period of time, to achieve the target blood pressure of <130/80 Continue amlodipine 10 mg p.o. daily Hydralazine 50 TID History of COPD: DuoNebs Supplemental oxygen as needed IS/flutter valve History of moderate aortic stenosis: Follow repeat 2D echo CKD versus PAULETTE on CKD: Baseline serum creatinine unknown Admission serum creatinine 1.4 Monitor intake and output charting Monitor BMP Goncalves catheter in place Avoid nephrotoxic's Random urine sodium Random urine creatinine Random urine protein FENA UPCR Microcytic anemia: Currently hemoglobin is 9.3 Monitor H&H History maintain hemoglobin greater than 8 CODE STATUS: Full code DVT prophylaxis on Lovenox Attestations Medical Necessity Statement*: Patient is to be in hospital for management decompensated heart failure.Anticipated length of stay: Greater than 2 midnights Coding Level of Care Code 73071 Diagnoses Acute exacerbation of congestive heart failure I50.9 Atrial fibrillation I48.91 COPD (chronic obstructive pulmonary disease) J44.9 HTN (hypertension) I10 Hypertension type: essential hypertension Aortic stenosis I35.0 Cardiac valve disease etiology: nonrheumatic Coronary artery disease I25.118 Associated angina: with other forms of angina Coronary Disease-Associated Artery/Lesion type: [place] artery [place] vs. transplanted heart: blackfeet heart Anemia D64.9 Aortic stenosis I35.0
[2022-05-18 11:26] LABS: Troponin 5 2HR 85.07 ng/L (0-15)
[2022-05-18 11:30] LABS: Glucose Point of Care 132 mg/dL (70-110)
[2022-05-18 11:32] LABS: Troponin 5 2HR Delta 8.07 ABS# (0-10)
[2022-05-18] MEDS: enoxaparin 100 mg/mL Syringe SUBCUT (11:58)
[2022-05-18] MEDS: amlodipine 5 mg Tablet PO ×2 (12:54→18:09)
--- NOTE | 2022-05-18 12:58 | ECG_ITS ---
[facility] Test Date: 2022-05-18 Pat Name: Vin Pena Department: Room: 103 Gender: Male Test Pilot: : 1945 Requested By: Florinda Light Order Number: [id number] Reading MD: Mack Orozco Measurements Intervals [place] Rate: 89 P: 0 [place]: 0 QRS: -9 QRSD: 94 T: -61 QT: 384 QTc: 468 Interpretive Statements Normal Sinus Rhythm with sinus arrhythmia ST DEVIATION AND MODERATE T-WAVE ABNORMALITY, CONSIDER LATERAL ISCHEMIA [-0.1+ mV T-WAVE IN I/aVL/V5/V6] Compared to ECG 05/18/2022 08:34:44 No significant changes Electronically Signed On 05-18-2022 19:04:11 CDT by Mack Orozco [email or web address]/store/OM/[id number]
[2022-05-18 15:13] LABS: Troponin 5 6HR 87.59 ng/L (0-15)
[2022-05-18 15:42] LABS: Troponin 5 6HR Delta 10.59 ng/L (0-12)
[2022-05-18] MEDS: hyDRALAzine 50 mg Tablet PO ×2 (15:48→21:11)
[2022-05-18 17:03] LABS: Glucose Point of Care 125 mg/dL (70-110)
[2022-05-18] MEDS: tamsulosin 0.4 mg Capsule PO (18:09)
[2022-05-18 20:26] LABS: Glucose Point of Care 163 mg/dL (70-110)
[2022-05-18] MEDS: acetaminophen 325 mg Tablet 650 MG PO (22:02)
[2022-05-19] VITALS (13 sets, daily range): BP systolic 96–130; BP diastolic 64–85; PULSE 74–110; RESP 17–27; TEMP 36.6–36.8; O2SAT 90–96
[2022-05-19] MEDS: ipratropium-albuterol 3 mL Neb INHALATION ×4 (02:08→19:38)
[2022-05-19 05:01] LABS: Basophils % 0.4 %; Eosinophils # 0.1 10^3/uL (0.0-0.8); Hematocrit 28.2 % (42.0-52.0); Hemoglobin 8.5 g/dL (11.7-16.6); Lymphocytes # 0.9 10^3/uL (0.8-4.8); Lymphocytes % 11.9 %; Mean Corpuscular HGB Conc 30.1 g/dL (30.0-36.0); Mean Corpuscular Hemoglobin 21.3 pg (28.0-34.0); Mean Corpuscular Volume 70.7 fl (80-94); Mean Platelet Volume 9.9 fL (7.4-10.4); Monocytes # 0.9 10^3/uL (0.2-0.9); Monocytes % 12.3 %; Neutrophils # 5.32 10^3/uL (1.8-7.7); Neutrophils % 74.1 %; Nucleated Red Blood Cells % 0 %; Platelet Count 277 10^3/cmm (130-400); Red Blood Count 3.99 10^6/uL (4.1-5.3); Red Cell Distribution Width 16.3 % (12.1-15.1); White Blood Count 7.2 10^3/uL (4.0-10.0)
[2022-05-19] MEDS: pantoprazole DR 40 mg Tablet PO (05:16)
[2022-05-19] MEDS: FUROsemide 10 mg/mL SDV 10mL 60 MG IVP (05:16)
[2022-05-19 05:25] LABS: Procalcitonin 0.43 ng/mL (0-0.5)
[2022-05-19 05:27] LABS: Alanine Aminotransferase 35 U/L (0-41); Albumin Level 3.2 g/dL (3.5-5.2); Alkaline Phosphatase 63 U/L (40-130); Anion Gap 14.2 (5-19); Aspartate Amino Transferase 25 U/L (0-40); Blood Urea Nitrogen 29 mg/dL (8-23); Carbon Dioxide 23 mmol/L (22-29); Chloride 104 mmol/L (98-107); Globulin 2.1 g/dL (1.3-4.6); Glucose 122 mg/dL (65-115); Magnesium 1.9 mg/dL (1.7-2.3); Osmolality Calculated 293 mOsm/kg (285-295); Potassium 3.2 mmol/L (3.5-5.1); Sodium 138 mmol/L (136-145); Total Bilirubin 0.5 mg/dL (0.15-1.2); Total Protein 5.3 g/dL (6.6-8.7)
[2022-05-19 05:45] LABS: Estmated Average Glucose 128; Hemoglobin A1C 6.1 % (4.0-6.0)
--- NOTE | 2022-05-19 06:00 | USCV_ITS ---
Vin Pena Age: 77 Gender: M : 1945 Exam Date: 05/19/2022 09:00 Ordering Phys: Domingo Armendariz MD Technologist: Grant Moses Exam Location: [facility] – [place], [place] Indication: sob BP: 124 / 85 HR: 95 Rhythm: Sinus Technical Quality: Adequate MEASUREMENTS (Male / Female) Normal Values 2D ECHO LV Diastolic Diameter PLAX 5.4 cm 4.2 - 5.9 / 3.9 - 5.3 cm LV Systolic Diameter PLAX 3.5 cm IVS Diastolic Thickness 1.2 cm 0.6 - 1.0 / 0.6 - 0.9 cm IVS Systolic Thickness 1.6 cm LVPW Diastolic Thickness 1.6 cm 0.6 - 1.0 / 0.6 - 0.9 cm LVPW Systolic Thickness 2.0 cm LVOT Diameter 2.0 cm LV Ejection Fraction 2D Teich 64.5 % LV Ejection Fraction MOD 2C 62.9 % LV Ejection Fraction 2C AL 63.6 % LA Diameter 2.5 cm IVC Diameter 2.5 cm M-MODE Aortic Annulus Diameter 3.6 cm LA Ao Ratio MM 1.4 DOPPLER AV Peak Velocity 422.0 cm/s LVOT Peak Velocity 113.0 cm/s AV Area Cont Eq vti 1.0 cm squared AV Area Cont Eq pk 0.9 cm squared MV Area PHT 4.6 cm squared Mitral E to A Ratio 1.1 MV E' Velocity 74.5 cm/s Mitral E to MV E' Ratio 17.0 Mitral E to LV E' Lateral Ratio 17.9 Mitral E to LV E' Septal Ratio 16.2 TR Peak Velocity 334.0 cm/s TR Peak Gradient 44.6 mmHg TV Peak E Velocity 93.0 cm/s Right Atrial Pressure 3.0 mmHg Pulmonary Artery Systolic Pressu 47.6 mmHg RV Acceleration Time 0.1 s FINDINGS Left Ventricle Left ventricle is normal in size. LV systolic function is normal with EF of 55-60%. No regional wall motion abnormalities are seen. Right Ventricle Normal in size and function Right Atrium Normal in size Left Atrium Severely dilated Mitral Valve Structurally normal mitral valve. Mild mitral regurgitation. Aortic Valve Aortic valve is thickened and calcified. Severe aortic stenosis with JOSE of 0.98cm2 and mean gradient across aortic valve of 43mmHg. Tricuspid Valve Mild tricuspid regurgitation. RVSP is 45 to 50 mmHg. This is consistent with moderate pulmonary hypertension. Pulmonic Valve Not well-visualized Pericardium Normal Aorta Normal in size IVC Dilated CONCLUSIONS Left ventricular systolic function is normal with EF 55 to 60%. Mild mitral regurgitation Severely dilated left atrium Severe aortic stenosis with aortic valve area of 0.98 cm squared and mean gradient across aortic valve of 43 mmHg. Mild tricuspid regurgitation Moderate pulmonary hypertension Compared to prior echocardiogram from 2019, aortic stenosis has progressed and is severe now. Robert Green MD (Electronically Signed) Final Date: 20 May 2022 07:30 S
[2022-05-19 06:39] LABS: Glucose Point of Care 113 mg/dL (70-110)
[2022-05-19] MEDS: hyDRALAzine 50 mg Tablet PO ×3 (08:47→20:52)
[2022-05-19] MEDS: amlodipine 10 mg Tablet PO (08:47)
[2022-05-19] MEDS: tamsulosin 0.4 mg Capsule PO ×2 (08:47→18:09)
--- NOTE | 2022-05-19 09:56 | PC.CHAP ---
Pastoral Care Encounter/Spiritual Assessment Type of Contact [] Declined retail buyer visit [] Patient/Family/Request visit [] Outpatient visit [] Follow-up visit [] Physician referral [] Code/Alert [x] Routine visit [] Staff referral [] Actively dying [] Patient sleeping [] Family support [] [] Out of room [] Palliative care [] [] Receiving care in room [] Pre-surgical visit [] Trauma [] Long length of stay [] ICU visit [] Other: Relational/Emotional Strength [x] Patient feels connected with others/family/visitors/staff [] Distress [] Loneliness/isolation [] Abandonment Spirituality of Patient [x] Person of Clarissa [] Attends Restoration of their Clarissa [x] Believes in Prayer [] Reads Bible or Episcopalian materials [] There are Spiritual issues to be addressed Machine Clothing Replacer Interventions [x] Prayer [] Active listening [] Non-anxious presence [] Spiritual/emotional support [] Crisis/trauma care [] Spiritual counseling [] Bereavement support [] Provided bereavement packet [] Provided Bible/devotional materials [] Provided toy/stuffed animal, coloring book to patient or family member [] Provided Communion [] Anointing/Michael [] Salvation [x] Completed spiritual assessment [] Other: Impact on Illness or Injury [] Angry [] Fearful [] Anxious [] Often cries [] Exhaustion [] Unable to work [] Unable to attend hinduism [] Unable to walk/stand [] Unable to read [] Unable to drive [] Unable to eat/drink [] Unable to sleep [] Unable to be with family [] Patient intubated [] Other: Summary Time spent with patient 5 min
[2022-05-19 11:46] LABS: Glucose Point of Care 256 mg/dL (70-110)
[2022-05-19] MEDS: insulin lispro 100 unit/1 mL SUBCUT (12:21)
[2022-05-19 17:06] LABS: Glucose Point of Care 107 mg/dL (70-110)
[2022-05-19] MEDS: enoxaparin 40 mg/0.4 mL Syringe SUBCUT (18:09)
--- NOTE | 2022-05-19 18:26 | PM.PN ---
Subjective Subjective: Denies any new complaints, states that his breathing is improving , elliott any chest pain, palpitations , creat trending up today Medications: Reviewed: Yes Vitals/I&O/Wt Last Vital Signs Temp 97.9 F 05/19/22 15:53 Pulse 96 05/19/22 15:53 Resp 19 H 05/19/22 15:53 BP 120/73 05/19/22 15:53 Pulse Ox 96 05/19/22 15:53 O2 Del Method 05/19/22 15:53 O2 Flow Rate 1 05/19/22 13:12 05/19/22 05/19/22 05/19/22 06:59 14:59 22:59 Intake Total 480 / 938 720 / 720 240 / 960 Output Total 650 / 3700 1000 / 1000 Balance -170 / -2762 -280 / -280 240 / -40 Weight last 48 hrs Weight 97.568 kg Weight 99.79 kg Physical Exam Narrative: General: No acute distress, AO x3 HEENT: PERRLA, pupils bilaterally equal and reactive, pallors not present Chest: Normal vesicular breath sounds, no added sounds, equal good air entry bilaterally CVS: S1-S2 regular, no murmurs, no tachycardia, no gallops, no rubs Abdomen: Soft, nontender, no organomegaly, bowel sounds present Neuro: No focal deficits, no facial deformity, AO x3, power 5/5 in all limbs Urinary Catheter Management: Goncalves: Cath Placed During This Visit: yes Reason for Continuing Indwelling Catheter: Accurate Measurement of Urinary Output in Critically Ill Patients Urinary Catheter Date of Insertion: 05/18/22 Urinary Catheter Time of Insertion: 14:25 Data 05/19/22 04:32 05/19/22 04:32 Micro: Microbiology 05/18/22 10:45 Blood Culture - Preliminary Blood NEGATIVE TO DATE 05/18/22 10:55 Blood Culture - Preliminary Blood NEGATIVE TO DATE A&P Assessment and plan (1) Acute exacerbation of congestive heart failure: (2) Atrial fibrillation: (3) COPD (chronic obstructive pulmonary disease): (4) HTN (hypertension): Qualifiers: Hypertension type: essential hypertension Qualified Code(s): I10 - Essential (primary) hypertension (5) Aortic stenosis: Qualifiers: Cardiac valve disease etiology: nonrheumatic Qualified Code(s): I35.0 - Nonrheumatic aortic (valve) stenosis (6) Coronary artery disease: Qualifiers: Coronary Disease-Associated Artery/Lesion type: [place] artery [place] vs. transplanted heart: [place] heart Associated angina: with other forms of angina Qualified Code(s): I25.118 - Atherosclerotic heart disease of [place] coronary artery with other forms of angina pectoris (7) Anemia: Plan 77 year old male with past medical history of hypertension coronary artery disease CHF COPD aortic stenosis came in with chief complaint of worsening shortness of breath worsening bilateral lower extremity swelling PND orthopnea, symptoms have been going on for the last 2 months and since then it has progressively worsened. # Decompensated heart failure with preserved ejection fraction. echo taken, pending Received Lasix 60 IV in am, will hold in evening given cr trending up and currently appears euvolemic this afternoon Net negative 2.5L Monitor intake output charting Monitor daily weight Fluid restriction to 1 L Telemetry monitoring Monitor electrolytes Continue telemetry monitoring Hypertensive urgency: Currently well controlled Elevated troponins: Likely a combination of heart failure and hypertensive urgency Trop trend 77--> 85 --> 87, without significant delta Initial EKG upon admission with A fib, therafter sinus rhythm with sinus arrhythmia Will await echocardiogram may need stress test when optimized History of COPD: DuoNebs to continue Supplemental oxygen as needed IS/flutter valve History of moderate aortic stenosis: Follow repeat 2D echo results pedning CKD versus PAULETTE on CKD: Baseline serum creatinine unknown Admission serum creatinine 1.4, trending up to 1.6, hold lasix for now, monitor for improvement Monitor intake and output charting Goncalves catheter in place Avoid nephrotoxic's Microcytic anemia: Currently hemoglobin is 9.3---> 8.5 check FOBT Monitor H&H given cardiac history maintain hemoglobin greater than 8 CODE STATUS: Full code DVT prophylaxis on Lovenox Attestations Medical Necessity Statement*: continued need for iv diuresis, PAULETTE , holding lasix today, monitor for response Coding Level of Care Code Acute Code for Chg Fwd Diagnoses Acute exacerbation of congestive heart failure I50.9 Atrial fibrillation I48.91 COPD (chronic obstructive pulmonary disease) J44.9 HTN (hypertension) I10 Hypertension type: essential hypertension Aortic stenosis I35.0 Cardiac valve disease etiology: nonrheumatic Coronary artery disease I25.118 Coronary Disease-Associated Artery/Lesion type: [place] artery [place] vs. transplanted heart: [place] heart Associated angina: with other forms of angina Anemia D64.9
[2022-05-19 20:25] LABS: Glucose Point of Care 178 mg/dL (70-110)
[2022-05-19] MEDS: HYDROcodone-acetaminophen 5-325 mg Tablet 1 TAB PO (21:33)
[2022-05-20] VITALS (69 sets, daily range): BP systolic 89–144; BP diastolic 59–109; PULSE 79–135; RESP 16–41; TEMP 36.6–36.8; O2SAT 92–98
[2022-05-20] MEDS: ipratropium-albuterol 3 mL Neb INHALATION ×4 (02:36→20:38)
[2022-05-20 04:15] LABS: Basophils % 0.3 %; Eosinophils # 0.1 10^3/uL (0.0-0.8); Eosinophils % 0.9 %; Hematocrit 28.1 % (42.0-52.0); Hemoglobin 8.6 g/dL (11.7-16.6); Lymphocytes # 0.9 10^3/uL (0.8-4.8); Lymphocytes % 10.9 %; Mean Corpuscular HGB Conc 30.6 g/dL (30.0-36.0); Mean Corpuscular Hemoglobin 21.6 pg (28.0-34.0); Mean Corpuscular Volume 70.4 fl (80-94); Monocytes % 12.6 %; Neutrophils # 5.88 10^3/uL (1.8-7.7); Nucleated Red Blood Cells % 0 %; Platelet Count 272 10^3/cmm (130-400); Red Blood Count 3.99 10^6/uL (4.1-5.3); Red Cell Distribution Width 16.4 % (12.1-15.1); White Blood Count 7.8 10^3/uL (4.0-10.0)
[2022-05-20 04:35] LABS: Alanine Aminotransferase 27 U/L (0-41); Albumin Level 3.2 g/dL (3.5-5.2); Alkaline Phosphatase 56 U/L (40-130); Anion Gap 15.5 (5-19); Aspartate Amino Transferase 14 U/L (0-40); Blood Urea Nitrogen 31 mg/dL (8-23); Calcium 8.1 mg/dL (8.5-10.5); Carbon Dioxide 23 mmol/L (22-29); Chloride 104 mmol/L (98-107); Globulin 2.4 g/dL (1.3-4.6); Glucose 125 mg/dL (65-115); Osmolality Calculated 296 mOsm/kg (285-295); Potassium 3.5 mmol/L (3.5-5.1); Sodium 139 mmol/L (136-145); Total Bilirubin 0.5 mg/dL (0.15-1.2); Total Protein 5.6 g/dL (6.6-8.7)
[2022-05-20] MEDS: pantoprazole DR 40 mg Tablet PO (06:02)
[2022-05-20 07:52] LABS: Glucose Point of Care 146 mg/dL (70-110)
[2022-05-20] MEDS: HYDROcodone-acetaminophen 5-325 mg Tablet 1 TAB PO (08:09)
[2022-05-20] MEDS: insulin lispro 100 unit/1 mL SUBCUT ×2 (08:10→12:44)
[2022-05-20] MEDS: tamsulosin 0.4 mg Capsule PO ×2 (08:14→18:30)
--- NOTE | 2022-05-20 09:19 | ECG_ITS ---
[facility] Test Date: 2022-05-20 Pat Name: Vin Pena Department: Room: 103 Gender: Male Social Work Coordinator: : 1945 Requested By: Tiffanie Lawson Order Number: [id number] Heather MD: Robert Green M.D. Measurements Intervals [place] Rate: 115 P: 0 MS: 0 QRS: 39 QRSD: 100 T: 90 QT: 331 QTc: 459 Interpretive Statements ATRIAL FIBRILLATION WITH RAPID VENTRICULAR RESPONSE NONSPECIFIC ST & T-WAVE ABNORMALITY Compared to ECG 05/18/2022 12:58:41 Sinus rhythm no longer present Sinus arrhythmia no longer present Possible ischemia no longer present T-wave abnormality still present Electronically Signed On 05-20-2022 11:53:03 CDT by Robert Green M.D. [id number]
--- NOTE | 2022-05-20 09:27 | PC.NURSE ---
Patient complaining of back and chest pain.Patient's heart rate running as high as. BP is also down. Called Dr Mcfadden called about about patient's status change. New orders noted.
--- NOTE | 2022-05-20 09:30 | PC.NURSE ---
12 lead EKG performed. EKG shows a-fib wiht RVR. Dr. Mcfadden is at bedside while performed.
[2022-05-20 10:08] LABS: Troponin(5th) Baseline 151 ng/L (0-15)
[2022-05-20] MEDS: FUROsemide 10 mg/mL SDV 4mL 20 MG IVP (10:30)
[2022-05-20] MEDS: enoxaparin 100 mg/mL Syringe SUBCUT (10:30)
[2022-05-20 11:39] LABS: Glucose Point of Care 215 mg/dL (70-110)
[2022-05-20 11:57] LABS: Troponin 5 2HR 192.7 ng/L (0-15); Troponin 5 2HR Delta 41.7 ABS# (0-10)
[2022-05-20] MEDS: aspirin 81 mg Chew Tablet 324 MG PO (12:45)
[2022-05-20] MEDS: metoprolol tartrate 25 mg Tablet PO ×2 (12:45→20:34)
--- NOTE | 2022-05-20 12:50 | PC.NURSE ---
Dr. Mcfadden notified of EKG and patient's current status. Amio gtt not started due to heart rate being in the 80's.
--- NOTE | 2022-05-20 12:56 | ECG_ITS ---
[facility] Test Date: 2022-05-20 Pat Name: Vin Pena Department: Room: 103 Gender: Male Charge Coordinator: : 1945 Requested By: Tiffanie Lawson Order Number: [id number] Heather MD: Robert Green M.D. Measurements Intervals [place] Rate: 97 P: 49 SC: 169 QRS: 17 QRSD: 92 T: -30 QT: 370 QTc: 471 Interpretive Statements SINUS RHYTHM WITH OCCASIONAL SUPRAVENTRICULAR PREMATURE COMPLEXES NONSPECIFIC ST & T-WAVE ABNORMALITY Compared to ECG 05/20/2022 09:19:23 Atrial fibrillation no longer present T-wave abnormality still present Electronically Signed On 05-20-2022 17:30:00 CDT by Robert Green M.D. [id number]
--- NOTE | 2022-05-20 13:51 | PM.CONSULT ---
Providers/Reason For Consult Consulting Physician/Specialty*: DEMETRA Kemp MD/cardiology Reason for Consult*: Patient with chest pain and elevated troponin T. Heart failure and atrial fibrillation Attending Physician: Tiffanie Lawson MD Primary Care Provider: Ny Elizabeth DO History of Present Illness History of Present Illness Vin Pena is a 77 year old male with a longstanding history of high blood pressure, dyslipidemia, coronary artery disease, status post multiple PCI, congestive heart failure, atrial fibrillation he is presenting with complaints of shortness of breath, chest pain and leg swelling. He has been having episodes of chest pain while being in the hospital. This afternoon, he had an episode of chest pain associated with rapid heart rate . The heart rate spontaneously converted to normal sinus. Subsequent blood test revealed elevated troponin T with a significant delta. Cardiology consult is requested for further cardiac evaluation recommendation. This patient had cardiac radiation followed by PCI of the bifurcating LAD and PDA in 2016. A #2020, he had a cardiac catheterization followed by PCI of the distal RCA which was 100% occluded. He had a high-grade lesion in one of the obtuse marginal artery which was well collateralized. The stented segment of the LAD was found to be patent. He is a very poor historian. He also is known to have COPD, intermittent heart failure, type 2 diabetes, anemia,? Intolerance to anticoagulants causing bleeding. He has been very poorly compliant with medications and follow-ups. Apparently he was found out to be not on any antiplatelet drug at the time of the hospital admission. He has not been to the cardiology clinic for the last couple of years. Denies any fever or chills. He may have a dry cough. No other specific complaints. Review of Systems Narrative: CONSTITUTIONAL: No fever or chills. Has been having shortness of breath and generalized weakness. EYES: No blurring of vision or other visual disturbances lately. [] ENT: No hoarseness of voice, auditory disturbances or sore throat. CARDIOVASCULAR: As mentioned above. RESPIRATORY: No significant cough. GASTROINTESTINAL: No hematemesis or melena. GENITOURINARY: No dysuria or hematuria. INTEGUMENTARY: No skin rashes or history of skin cancer. NEURO: No transient ischemic attacks or amaurosis. PSYCHIATRIC: No history of psychosis or major depression. HEMATOLOGIC: No bleeding disorders or significant anemia. ENDOCRINE: No history of polyuria or polydipsia. MUSCULOSKELETAL: No recent joint pain or swelling. ALLERGY/IMMUNOLOGY: As mentioned above. Medications/Allergies Home Medications Medication Instructions Recorded Confirmed Last Taken Type lansoprazole 30 mg capsule,delayed 30 mg PO QAM 04/12/19 05/18/22 Unknown History release metformin 500 mg tablet 500 mg PO BID 04/12/19 05/18/22 Unknown History furosemide 40 mg tablet (Lasix) 40 mg PO DAILY PRN Edema 05/18/22 05/18/22 05/18/22 History hydrocodone 5 mg-acetaminophen 325 1 tab PO TID PRN Pain 05/18/22 05/18/22 Unknown History mg tablet tamsulosin 0.4 mg capsule 0.4 mg PO BID 05/18/22 05/18/22 Unknown History Allergies Allergy/AdvReac Type Severity Reaction Status Date / Time naproxen [From Naprosyn] AdvReac NA Verified 05/18/22 09:22 simvastatin [From Zocor] AdvReac NA Verified 05/18/22 09:22 Current Medications Generic Name Dose Route Start Last Admin Trade Name Freq PRN Reason Stop Dose Admin Acetaminophen 650 mg 05/18/22 09:58 05/18/22 22:02 Acetaminophen 325 Mg Tablet PO 650 mg Q6H PRN Administration Mild/Mod Pain Or Temp >/= 101 Hydrocodone Bitart/Acetaminophen 1 tab 05/19/22 21:23 05/20/22 08:09 Hydrocodone-Acetaminophen 5-325 Mg Tablet PO 1 tab TID PRN Administration MODERATE PAIN Albuterol/Ipratropium 3 ml 05/18/22 20:00 05/20/22 12:59 Ipratropium-Albuterol 3 Ml Neb INHALATION 3 ml Q6H.RESP JOSE ANGEL Administration Amlodipine Besylate 10 mg 05/19/22 09:00 05/20/22 10:18 Amlodipine 10 Mg Tablet PO Not Given DAILY JOSE ANGEL Enoxaparin Sodium 100 mg 05/20/22 10:00 05/20/22 10:30 Enoxaparin 100 Mg/Ml Syringe 1 mg/kg (100 mg) 100 mg SUBCUT Administration Q24H JOSE ANGEL Furosemide 60 mg 05/19/22 06:00 05/19/22 05:16 Furosemide 10 Mg/Ml Sdv 10ml IVP 60 mg BID JOSE ANGEL Administration Amiodarone HCl 900 mg/ 518 mls @ 0 mls/hr 05/20/22 09:45 05/20/22 10:46 Dextrose/ IV Miscellaneous IV 0 mg/min Supplies .Q0M JOSE ANGEL 0 mls/hr Titration Protocol Per Protocol Insulin Human Lispro 0 unit 05/18/22 12:00 05/20/22 12:44 Insulin Lispro 100 Unit/1 Ml SUBCUT 4 unit TIDWM JOSE ANGEL Administration Protocol Metoprolol Tartrate 25 mg 05/20/22 12:15 05/20/22 12:45 Metoprolol Tartrate 25 Mg Tablet PO 25 mg BID@0900,2100 JOSE ANGEL Administration Pantoprazole Sodium 40 mg 05/19/22 06:00 05/20/22 06:[address] 40 Mg Tablet PO 40 mg QAM JOSE ANGEL Administration Tamsulosin HCl 0.4 mg 05/18/22 18:00 05/20/22 08:14 Tamsulosin 0.4 Mg Capsule PO 0.4 mg BID JOSE ANGEL Administration PFSH Acute PFSH: Medical History Aortic stenosis BPH w/o urinary obs/LUTS CHF (congestive heart failure) Coronary artery disease Diabetes mellitus Elevated PSA History of non-ST elevation myocardial infarction (NSTEMI) HTN (hypertension) Lower urinary tract symptoms (LUTS) Renal calculi Surgical History H/O hernia repair H/O lithotripsy S/P eye surgery S/P tonsillectomy Family History Father , 80 CAD (coronary artery disease) Hypertension Mother , 90 No problems noted. Social History Smoking and tobacco status: former smoker Quit status (tobacco): has quit using tobacco Year quit tobacco: 1990 - PD x 7 Years Second hand smoke exposure: Yes Smoking risk assessment/counseling performed?: No Alcohol intake: never Lives independently: Yes Household members: spouse Marital status: Current occupational status: retired Current gender identity: Male Vitals/I&O/Wt Last Vital Signs Temp 98.0 F 05/20/22 11:28 Pulse 103 H 05/20/22 13:15 Resp 32 H 05/20/22 13:15 BP 126/81 05/20/22 13:15 Pulse Ox 98 05/20/22 13:15 O2 Del Method 05/20/22 12:59 O2 Flow Rate 0.5 05/20/22 12:59 05/19/22 05/20/22 05/20/22 22:59 06:59 14:59 Intake Total 240 / 960 606.906 / 606.906 Output Total 550 / 1550 Balance -310 / -590 606.906 / 606.906 Weight last 48 hrs Weight 217 lb 9.6 oz Weight 215 lb 1.6 oz Physical Exam Narrative: For GENERAL: The patient is alert and oriented times three. Not in any acute distress. HEENT: No significant pallor, icterus or lymphadenopathy.Oral cavity: There are no mucous membrane lesions. NECK: Trachea appears to be central. No masses noted. No JVD or thyromegaly appreciated. RESPIRATORY: Chest is symmetrical. No intercostals muscle retraction or any accessory muscle activation. There is no chest wall tenderness. Breath sounds are heard bilaterally. Tightness is of breath sounds are diminished in the left base. Scattered coarse crackles. BREASTS: Deferred. HEART: The heart sounds are normal. No S3 or S4. Ejection systolic murmur of grade 4 or 6 in the aortic area. No diastolic murmurs. No pericardial rub. ABDOMEN: No vessel pulsations or distention. No tenderness. No organomegaly appreciated. Bowel sounds are normally heard. : Deferred. RECTAL: Deferred. LYMPHATIC: No lymphadenopathy noted in the neck. EXTREMITIES: 1-2+ edema both lower extremities. Some superficial venous ulcers appear to be healing. Peripheral pulses are weak bilaterally. MUSCULOSKELETAL: No acute joint deformities or swelling SKIN: There are no significant rashes or ecchymosis NEUROPSYCHIATRIC: The patient is alert and oriented x3. Appears to be in a good mood. No tremors or rigidity noted. Urinary Catheter Management: Goncalves: Cath Placed During This Visit: yes Reason for Continuing Indwelling Catheter: Accurate Measurement of Urinary Output in Critically Ill Patients Urinary Catheter Date of Insertion: 05/18/22 Urinary Catheter Time of Insertion: 14:25 Data 05/20/22 03:28 05/20/22 03:28 Other Labs: Cardiac catheterization in December 2019 ?LM has 0% stenosis. ? * LAD has 0% stenosis. ? * CX has 0% stenosis. ? * 1st OM: Severe 99% stenosis, SOURAV: 2 flow. ? * dRCA: Severe 100% stenosis, SOURAV: 0 flow. ? * 3rd OM to CIRC AV collateralization. ? * Coronary angiography shows right dominance. Micro: Microbiology 05/18/22 10:45 Blood Culture - Preliminary Blood NEGATIVE TO DATE 05/18/22 10:55 Blood Culture - Preliminary Blood NEGATIVE TO DATE Echo: My impression: Echocardiogram on 05/19/2022 left ventricular systolic function is normal with EF 55 to 60%. ?Mild mitral regurgitation ?Severely dilated left atrium ?Severe aortic stenosis with aortic valve area of 0.98 cm squared and ?mean gradient across aortic valve of 43 mmHg. ?Mild tricuspid regurgitation ?Moderate pulmonary hypertension ?Compared to prior echocardiogram from 2019, aortic stenosis has ?progressed and is severe now. EKG 1: My Interpretation: Multifocal atrial rhythm. Nonspecific T wave changes. A&P Assessment and plan (1) Acute exacerbation of congestive heart failure: The heart failure seems to be getting compensated. May continue on the careful IV diuresis. (2) Severe aortic valve stenosis: Patient may benefit from aortic valve intervention. He requested categorization to rule out any significant coronary artery disease, before proceeding with any valve intervention. (3) Atrial fibrillation: Patient has a history intermittent atrial fibrillation. Currently seems to be in sinus rhythm/multifocal atrial rhythm. (4) Anemia: Patient has a significant drop in the hemoglobin recently. Etiology is not clear. A GI bleeding need to be excluded. (5) COPD (chronic obstructive pulmonary disease): Patient has been treated with bronchodilators. (6) HTN (hypertension): Currently normotensive. May continue on the current medications. Qualifiers: Hypertension type: essential hypertension Qualified Code(s): I10 - Essential (primary) hypertension (7) Dyslipidemia: May continue on the lipid-lowering agents. (8) Chronic kidney disease: The could be multifactorial. The severe aortic valve stenosis could be a contributing factor. (9) Elevated troponin: Non-ST elevation myocardial infarction is a strong possibility in view of the significant delta associated with chest pain. It may be appropriate to switch that to heparin because of the anemia and the kidney disease. Plan Patient requires a cardiac catheterization to further evaluate his coronary status and also the hemodynamics. He may benefit from aortic valve intervention, which will be decided after the coronary angiogram. In view of the significant drop in the hemoglobin, we may have to rule out any active GI bleed before proceeding with the coronary angiogram. Consult Attestations Medical Necessity Statement: Patient requires continued hospital stay for close monitoring and further management Coding Level of Care Code 75220 Diagnoses Acute exacerbation of congestive heart failure I50.9 Severe aortic valve stenosis I35.0 Atrial fibrillation I48.91 Anemia D64.9 COPD (chronic obstructive pulmonary disease) J44.9 HTN (hypertension) I10 Hypertension type: essential hypertension Dyslipidemia E78.5 Chronic kidney disease N18.9 Elevated troponin R77.8
--- NOTE | 2022-05-20 14:00 | P.PN_ITS ---
Subjective Subjective: Patient started to complain of chest pain this morning at around 9 AM. States that the pain is located in center of his chest, moving more towards the left side. Pain was relieved with hydrocodone that he had just received a few minutes ago. Patient was noted to be in A-fib with RVR during the events. Heart rate was ranging between 120 to 140 bpm. No diaphoresis nausea. Systolic blood pressure ranging between 78-92 during the event. Patient was to be started on an amiodarone drip, however he became rate controlled subsequently without any intervention with heart rate ranging between 80 to 90 bpm. Metoprolol 25 mg p.o. twice daily has then been added to his regimen. Troponin series was drawn which shows a baseline troponin of 150, up from 85 upon admission, trending up to 190 with a 2-hour delta of 40. Creatinine stable today at 1.7. Urine output at 550 cc. Net -2.7 L since ad mission. Medications: Reviewed: Yes Vitals/I&O/Wt Last Vital Signs Temp 98.0 F 05/20/22 11:28 Pulse 103 H 05/20/22 13:15 Resp 32 H 05/20/22 13:15 BP 126/81 05/20/22 13:15 Pulse Ox 98 05/20/22 13:15 O2 Del Method 05/20/22 12:59 O2 Flow Rate 0.5 05/20/22 12:59 05/19/22 05/20/22 05/20/22 22:59 06:59 14:59 Intake Total 240 / 960 606.906 / 606.906 Output Total 550 / 1550 Balance -310 / -590 606.906 / 606.906 Weight last 48 hrs Weight 98.702 kg Weight 97.568 kg Physical Exam Narrative: Seen and examined at 9 AM today General: Complains of chest discomfort when first seen, A-fib with RVR on monitor with heart rate 120 to 140 bpm, AO x3 HEENT: PERRLA, pupils bilaterally equal and reactive, pallors not present Chest: Normal vesicular breath sounds, no added sounds, equal good air entry bilaterally CVS: S1-S2 regular, no murmurs, no tachycardia, no gallops, no rubs Abdomen: Soft, nontender, no organomegaly, bowel sounds present Neuro: No focal deficits, no facial deformity, AO x3, power 5/5 in all limbs Urinary Catheter Management: Goncalves: Cath Placed During This Visit: yes Reason for Continuing Indwelling Catheter: Accurate Measurement of Urinary Output in Critically Ill Patients Urinary Catheter Date of Insertion: 05/18/22 Urinary Catheter Time of Insertion: 14:25 Data 05/20/22 03:28 05/20/22 03:28 Micro: Microbiology 05/18/22 10:45 Blood Culture - Preliminary Blood NEGATIVE TO DATE 05/18/22 10:55 Blood Culture - Preliminary Blood NEGATIVE TO DATE A&P Assessment and plan (1) Acute exacerbation of congestive heart failure: (2) Atrial fibrillation: (3) COPD (chronic obstructive pulmonary disease): (4) HTN (hypertension): Qualifiers: Hypertension type: essential hypertension Qualified Code(s): I10 - Essential (primary) hypertension (5) Aortic stenosis: Qualifiers: Cardiac valve disease etiology: nonrheumatic Qualified Code(s): I35.0 - Nonrheumatic aortic (valve) stenosis (6) Coronary artery disease: Qualifiers: Coronary Disease-Associated Artery/Lesion type: resighini artery [place] vs. transplanted heart: resighini heart Associated angina: with other forms of angina Qualified Code(s): I25.118 - Atherosclerotic heart disease of resighini coronary artery with other forms of angina pectoris (7) Anemia: Plan 77 year old male with past medical history of hypertension coronary artery disease CHF COPD aortic stenosis admitted on May 18, 2022 with chief complaint of worsening shortness of breath worsening bilateral lower extremity swelling PND orthopnea, symptoms have been going on for the last 2 months and since then it has progressively worsened. He was admitted to the hospital for decompensated heart failure and was undergoing diuresis which had to be held on May 19, 2022 due to uptrending creatinine. Started to develop chest pain as of this morning, concern for NSTEMI now. #NSTEMI EKG showing A-fib with RVR Complaining of chest pain this morning. Baseline troponin at 150, trending up to 190 at 2 hours with a delta of 40. Pending 6-hour troponin trend. Start Lovenox 1 mg/kg every 24 hours (lower dose due to creatinine 1.7), aspirin 325 now followed by 81 mg p.o. daily. Reported allergy to statins though unable to specify what these are. Started on metoprolol 25 mg p.o. twice daily Upon arrival patient had had elevated troponins in the 70-80 range without significant delta. It was thought to be related to type II [place] with planned stress test, however now with ongoing chest pain and uptrending troponins, concern for NSTEMI. Echocardiogram taken yesterday shows LVEF 55 to 60%, mild mitral regurgitation, severely dilated left atrium and severe aortic stenosis with JOSE of 0.9 cm? with moderate pulmonary hypertension. Aortic stenosis has progressed compared to 2020. Cardiology consult #A-fib with RVR This appears to be a new diagnosis for the patient. Currently rate controlled between 80-90 without any specific intervention Started on metoprolol 25 mg p.o. twice daily. TSH normal 1.4 [id number] score: 5, will benefit from anticoagulation, currently on full dose Lovenox (with renal adjustment), will aim to transition to oral anticoagulants when nearing discharge. # Decompensated heart failure with preserved ejection fraction. echo as above. Lasix was held in the evening of May 19, 2022 due to uptrending creatinine. We will give 20 mg IV now, monitor the urine output, may need more diuresis towards the evening depending on urine output. Net negative 2.5L Monitor intake output charting Monitor daily weight Fluid restriction to 1 L Telemetry monitoring Monitor electrolytes Continue telemetry monitoring # Hypertensive urgency: Now resolved. Patient hypotensive this morning when he went into A-fib with RVR. Systolic blood pressure ranging between 78-90. Hold hydralazine and amlodipine. # History of COPD: DuoNebs to continue Supplemental oxygen as needed IS/flutter valve # CKD versus PAULETTE on CKD: Baseline serum creatinine unknown Admission serum creatinine 1.4, trending up to 1.7 lasix 20mg iv today, further dosing dependent on response Monitor intake and output charting Goncalves catheter in place Avoid nephrotoxic's # Microcytic anemia: Hemoglobin upon admission at 9.3, drifted down to 8. 8.6, has been stable over past 2 days. From 2019 this appears to have been normal at 12.4. check FOBT, no overt melena or hematemesis at present. Check iron studies B12 folate for nutritional deficienies Monitor H&H with initiation of anticoagulation. given cardiac history maintain hemoglobin greater than 8 CODE STATUS: Full code DVT prophylaxis: on Lovenox Attestations Medical Necessity Statement*: NSTEMI, cardiology evaluation, starting new medication, rate control, IV diuresis Coding Level of Care Code Acute Code for Chg Fwd High MDM includes number and complexity of problems actively addressed during encounter, amount and/or complexity of data reviewed/ordered and described risk of complication, morbidity or mortality of management as documented Diagnoses Acute exacerbation of congestive heart failure I50.9 Atrial fibrillation I48.91 COPD (chronic obstructive pulmonary disease) J44.9 HTN (hypertension) I10 Hypertension type: essential hypertension Aortic stenosis I35.0 Cardiac valve disease etiology: nonrheumatic Coronary artery disease I25.118 Coronary Disease-Associated Artery/Lesion type: resighini artery [place] vs. transplanted heart: resighini heart Associated angina: with other forms of angina Anemia D64.9
--- NOTE | 2022-05-20 14:57 | ECG_ITS ---
[facility] Test Date: 2022-05-20 Pat Name: Vin Pena Department: Room: 103 Gender: Male Green Inspector: : 1945 Requested By: Tiffanie Lawson Order Number: [id number] Heather MD: Robert Green M.D. Measurements Intervals [place] Rate: 88 P: 0 ND: 0 QRS: 43 QRSD: 91 T: -73 QT: 382 QTc: 464 Interpretive Statements ATRIAL FIBRILLATION ST DEVIATION AND MODERATE T-WAVE ABNORMALITY, CONSIDER INFERIOR ISCHEMIA [-0.1+ mV T-WAVE IN II/aVF] Compared to ECG 05/20/2022 12:56:30 Possible ischemia now present Sinus rhythm no longer present T-wave abnormality still present Electronically Signed On 05-20-2022 17:29:32 CDT by Robert Green M.D. [id number]
[2022-05-20 14:59] LABS: Ferritin 27 ng/mL (30-400); Transferrin 261 mg/dL (200-360)
[2022-05-20 15:13] LABS: Vitamin B12 452 pg/mL (232-1245)
[2022-05-20 15:14] LABS: Folate Level 10.8 ng/mL (4.5-32.2)
[2022-05-20 16:32] LABS: Troponin 5 6HR 371.3 ng/L (0-15); Troponin 5 6HR Delta 220.3 ng/L (0-12)
[2022-05-20 17:16] LABS: Glucose Point of Care 104 mg/dL (70-110)
[2022-05-20 21:14] LABS: Glucose Point of Care 173 mg/dL (70-110)
[2022-05-21] VITALS (30 sets, daily range): BP systolic 100–132; BP diastolic 83–98; PULSE 81–113; RESP 17–33; TEMP 36.6–38.2; O2SAT 85–98; BMI 32.3
[2022-05-21] MEDS: ipratropium-albuterol 3 mL Neb INHALATION ×4 (01:17→20:50)
[2022-05-21 04:19] LABS: Basophils % 0.5 %; Eosinophils # 0.1 10^3/uL (0.0-0.8); Eosinophils % 1.6 %; Hematocrit 28.3 % (42.0-52.0); Hemoglobin 8.4 g/dL (11.7-16.6); Lymphocytes # 0.7 10^3/uL (0.8-4.8); Lymphocytes % 8.3 %; Mean Corpuscular HGB Conc 29.7 g/dL (30.0-36.0); Mean Corpuscular Hemoglobin 21.3 pg (28.0-34.0); Mean Corpuscular Volume 71.8 fl (80-94); Mean Platelet Volume 10.3 fL (7.4-10.4); Monocytes % 12.8 %; Neutrophils # 6.06 10^3/uL (1.8-7.7); Neutrophils % 76.4 %; Nucleated Red Blood Cells % 0 %; Platelet Count 275 10^3/cmm (130-400); Red Blood Count 3.94 10^6/uL (4.1-5.3); Red Cell Distribution Width 16.5 % (12.1-15.1); White Blood Count 7.9 10^3/uL (4.0-10.0)
[2022-05-21 04:43] LABS: Alanine Aminotransferase 23 U/L (0-41); Albumin Level 3.3 g/dL (3.5-5.2); Alkaline Phosphatase 63 U/L (40-130); Anion Gap 14.8 (5-19); Aspartate Amino Transferase 28 U/L (0-40); Blood Urea Nitrogen 32 mg/dL (8-23); Calcium 8.4 mg/dL (8.5-10.5); Carbon Dioxide 24 mmol/L (22-29); Chloride 104 mmol/L (98-107); Globulin 2.4 g/dL (1.3-4.6); Glucose 116 mg/dL (65-115); Osmolality Calculated 296 mOsm/kg (285-295); Potassium 3.8 mmol/L (3.5-5.1); Sodium 139 mmol/L (136-145); Total Bilirubin 0.5 mg/dL (0.15-1.2); Total Protein 5.7 g/dL (6.6-8.7)
[2022-05-21] MEDS: pantoprazole DR 40 mg Tablet PO (05:37)
[2022-05-21] MEDS: HYDROcodone-acetaminophen 5-325 mg Tablet 1 TAB PO ×2 (05:37→23:47)
[2022-05-21 09:14] LABS: Glucose Point of Care 116 mg/dL (70-110)
[2022-05-21] MEDS: aspirin 81 mg EC Tablet PO (09:56)
[2022-05-21] MEDS: tamsulosin 0.4 mg Capsule PO ×2 (09:56→17:41)
[2022-05-21] MEDS: enoxaparin 100 mg/mL Syringe SUBCUT (09:56)
[2022-05-21] MEDS: metoprolol tartrate 25 mg Tablet PO (09:56)
--- NOTE | 2022-05-21 09:56 | PM.PN ---
Subjective Subjective: The patient has not had a recurrence of chest pain since yesterday. No unusual shortness of breath. He had symptomatic bleeding in the bladder of from the Goncalves's catheter. The hemoglobin remains more or less stable. Occult blood test is still pending. Medications: Medication Review Details: Current Medications Acetaminophen (Acetaminophen 325 Mg Tablet) 650 mg PO Q6H PRN PRN Reason: Mild/Mod Pain Or Temp >/= 101 Last Admin: 05/18/22 22:02 Dose: 650 mg Hydrocodone Bitart/Acetaminophen (Hydrocodone-Acetaminophen 5-325 Mg Tablet) 1 tab PO TID PRN PRN Reason: MODERATE PAIN Last Admin: 05/21/22 05:37 Dose: 1 tab Albuterol/Ipratropium (Ipratropium-Albuterol 3 Ml Neb) 3 ml INHALATION Q6H.RESP [facility] Last Admin: 05/21/22 08:57 Dose: 3 ml Amlodipine Besylate (Amlodipine 10 Mg Tablet) 10 mg PO DAILY [facility] Last Admin: 05/20/22 10:18 Dose: Not Given Aspirin (Aspirin 81 Mg Ec Tablet) 81 mg PO DAILY [facility] Last Admin: 05/21/22 09:56 Dose: 81 mg Bisacodyl (Bisacodyl 5 Mg Tablet) 10 mg PO DAILY PRN; Protocol PRN Reason: Constipation (see protocol) Dextrose (Dextrose 50% Syringe 50 Ml) 25 ml IVP ONCE PRN; Protocol PRN Reason: hypoglycemia protocol Dextrose (Dextrose 50% Syringe 50 Ml) 50 ml IVP PRN PRN; Protocol PRN Reason: hypoglycemia protocol Enoxaparin Sodium (Enoxaparin 100 Mg/Ml Syringe) 100 mg 1 mg/kg (100 mg) SUBCUT Q24H [facility] Last Admin: 05/21/22 09:56 Dose: 100 mg Furosemide (Furosemide 10 Mg/Ml Sdv 10ml) 60 mg IVP BID [facility] Last Admin: 05/19/22 05:16 Dose: 60 mg Glucagon (Glucagon 1 Mg/Ml Inj 1 Ml) 1 mg IM ONCE PRN; Protocol PRN Reason: Adult Acute Hypoglycemia Prot. Dextrose (D5w) 500 mls @ 100 mls/hr IV ONCE PRN; Protocol PRN Reason: Adult Acute Hypoglycemia Prot Amiodarone HCl 900 mg/Dextrose/ IV Miscellaneous Supplies 518 mls @ 0 mls/hr IV .Q0M [facility]; Protocol Last Titration: 05/20/22 10:46 Dose: 0 mg/min, 0 mls/hr Insulin Human Lispro (Insulin Lispro 100 Unit/1 Ml) 0 unit SUBCUT TIDWM [facility]; Protocol Last Admin: 05/21/22 09:53 Dose: Not Given Metoprolol Tartrate (Metoprolol Tartrate 25 Mg Tablet) 25 mg PO BID@0900,2100 [facility] Last Admin: 05/21/22 09:56 Dose: 25 mg Pantoprazole Sodium (Pantoprazole Dr 40 Mg Tablet) 40 mg PO QAM [facility] Last Admin: 05/21/22 05:37 Dose: 40 mg Tamsulosin HCl (Tamsulosin 0.4 Mg Capsule) 0.4 mg PO BID [facility] Last Admin: 05/21/22 09:56 Dose: 0.4 mg Vitals/I&O/Wt Last Vital Signs Temp 98 F 05/21/22 04:00 Pulse 106 H 05/21/22 08:00 Resp 17 05/21/22 08:00 BP 108/91 05/21/22 07:33 Pulse Ox 94 05/21/22 08:00 O2 Del Method 05/21/22 08:00 O2 Flow Rate 1 05/21/22 08:00 05/20/22 05/21/22 05/21/22 22:59 06:59 14:59 Intake Total 350 / 956.906 Output Total 1050 / 1050 600 / 1650 600 / 600 Balance -700 / -93.094 -600 / -693.094 -600 / -600 Weight last 48 hrs Weight 219 lb Weight 217 lb 9.6 oz Physical Exam Narrative: GENERAL: The patient is alert and oriented times three. Not in any acute distress. HEENT: No significant pallor, icterus or lymphadenopathy.Oral cavity: There are no mucous membrane lesions. NECK: Trachea appears to be central. No masses noted. No JVD or thyromegaly appreciated. RESPIRATORY: Chest is symmetrical. No intercostals muscle retraction or any accessory muscle activation. There is no chest wall tenderness. Breath sounds are heard bilaterally. No rales or rhonchi heard. No evidence of any consolidation. BREASTS: Deferred. HEART: The heart sounds are normal. No S3 or S4. Ejection systolic murmur grade 4/6 in the aortic area. No diastolic murmurs. No pericardial rub ABDOMEN: No vessel pulsations or distention. No tenderness. No organomegaly appreciated. Bowel sounds are normally heard. : Deferred. RECTAL: Deferred. LYMPHATIC: No lymphadenopathy noted in the neck. EXTREMITIES: Chronic 2+ edema of the lower extremities. Significant improvement since hospital admission. Healing bullous lesions in the lower extremities. MUSCULOSKELETAL: No acute joint deformities or swelling SKIN: There are no significant rashes or ecchymosis NEUROPSYCHIATRIC: The patient is alert and oriented x3. Appears to be in a good mood. No tremors or rigidity noted. Urinary Catheter Management: Goncalves: Cath Placed During This Visit: yes Reason for Continuing Indwelling Catheter: Accurate Measurement of Urinary Output in Critically Ill Patients Urinary Catheter Date of Insertion: 05/18/22 Urinary Catheter Time of Insertion: 14:25 Data 05/21/22 03:08 05/21/22 03:08 Other Labs: Laboratory Last Values WBC 7.9 10^3/uL (4.0-10.0) 05/21/22 03:08 RBC 3.94 10^6/uL (4.1-5.3) L 05/21/22 03:08 Hgb 8.4 g/dL (11.7-16.6) L 05/21/22 03:08 Hct 28.3 % (42.0-52.0) L 05/21/22 03:08 MCV 71.8 fl (80-94) L 05/21/22 03:08 MCH 21.3 pg (28.0-34.0) L 05/21/22 03:08 MCHC 29.7 g/dL (30.0-36.0) L 05/21/22 03:08 RDW 16.5 % (12.1-15.1) H 05/21/22 03:08 Plt Count 275 10^3/cmm (130-400) 05/21/22 03:08 MPV 10.3 fL (7.4-10.4) 05/21/22 03:08 Neut % (Auto) 76.4 % 05/21/22 03:08 Lymph % (Auto) 8.3 % 05/21/22 03:08 Young % (Auto) 12.8 % 05/21/22 03:08 Eos % (Auto) 1.6 % 05/21/22 03:08 Baso % (Auto) 0.5 % 05/21/22 03:08 Neut # (Auto) 6.06 10^3/uL (1.8-7.7) 05/21/22 03:08 Lymph # (Auto) 0.7 10^3/uL (0.8-4.8) L 05/21/22 03:08 Young # (Auto) 1.0 10^3/uL (0.2-0.9) H 05/21/22 03:08 Eos # (Auto) 0.1 10^3/uL (0.0-0.8) 05/21/22 03:08 Baso # (Auto) 0.0 10^3/uL (0.0-0.1) 05/21/22 03:08 Nucleated RBC % (auto) 0 % 05/21/22 03:08 Nucleated RBCs # 0.0 /100WBC 05/21/22 03:08 Specimen Type Arterial 05/18/22 08:04 Sample Site Radial, right 05/18/22 08:04 ABG pH 7.39 (7.35-7.45) 05/18/22 08:04 ABG pCO2 36.1 mmHg (35-45) 05/18/22 08:04 ABG pO2 62.7 mmHg (80.0-100.0) L 05/18/22 08:04 ABG HCO3 21.8 mmol/L (22-26) L 05/18/22 08:04 ABG Base Excess -2.8 mmol/L (-2.0-2.0) L 05/18/22 08:04 Harlan Test Pos 05/18/22 08:04 Hematocrit 30.0 % (42-52) L 05/18/22 08:04 O2 Delivery Device None 05/18/22 08:04 FiO2 21.0 % 05/18/22 08:04 Set Making Machine Operator ID [email or web address] 05/18/22 08:04 Sodium 139 mmol/L (136-145) 05/21/22 03:08 Potassium 3.8 mmol/L (3.5-5.1) 05/21/22 03:08 Chloride 104 mmol/L (98-107) 05/21/22 03:08 Carbon Dioxide 24 mmol/L (22-29) 05/21/22 03:08 Anion Gap 14.8 (5-19) 05/21/22 03:08 BUN 32 mg/dL (8-23) H 05/21/22 03:08 Creatinine 1.7 mg/dL (0.7-1.2) H 05/21/22 03:08 GFR Calculation Not Reportable 05/21/22 03:08 Glucose 116 mg/dL (65-115) H 05/21/22 03:08 POC Glucose 116 mg/dL (70-110) H 05/21/22 09:06 Estimat Average Glucose 128 05/19/22 04:32 Hemoglobin A1c 6.1 % (4.0-6.0) H 05/19/22 04:32 Calculated Osmolality 296 mOsm/kg (285-295) H 05/21/22 03:08 Calcium 8.4 mg/dL (8.5-10.5) L 05/21/22 03:08 Magnesium 1.9 mg/dL (1.7-2.3) 05/19/22 04:32 Transferrin 261 mg/dL (200-360) 05/20/22 03:28 Ferritin 27 ng/mL (30-400) L 05/20/22 03:28 Total Bilirubin 0.5 mg/dL (0.15-1.2) 05/21/22 03:08 AST 28 U/L (0-40) 05/21/22 03:08 ALT 23 U/L (0-41) 05/21/22 03:08 Alkaline Phosphatase 63 U/L (40-130) 05/21/22 03:08 Troponin T Gen 5 ng/L Cancelled 05/20/22 09:23 Troponin T Baseline 151 ng/L (0-15) H* 05/20/22 09:23 Troponin T 120 Minute 192.7 ng/L (0-15) H 05/20/22 11:25 Delta Troponin T 41.7 ABS# (0-10) H* 05/20/22 11:25 Troponin T Hi Sens 6Hr 371.3 ng/L (0-15) H 05/20/22 15:37 Troponin T Hi Sens 6Hr Delta 220.3 ng/L (0-12) H* 05/20/22 15:37 NT-Pro-B Natriuret Pep 7577 pg/mL (0-450) H 05/18/22 08:07 Total Protein 5.7 g/dL (6.6-8.7) L 05/21/22 03:08 Albumin 3.3 g/dL (3.5-5.2) L 05/21/22 03:08 Globulin 2.4 g/dL (1.3-4.6) 05/21/22 03:08 Vitamin B12 452 pg/mL (232-1245) 05/20/22 03:28 Folate 10.8 ng/mL (4.5-32.2) 05/20/22 03:28 Procalcitonin 0.43 ng/mL (0-0.5) 05/19/22 04:32 TSH 1.40 uIU/mL (0.27-4.20) 05/19/22 04:32 A&P Assessment and plan (1) Acute exacerbation of congestive heart failure: The heart failure seems to be getting compensated. May continue on the careful IV diuresis. (2) Elevated troponin: Non-ST elevation myocardial infarction is a strong possibility in view of the significant delta associated with chest pain. It may be appropriate to switch that to heparin because of the anemia and the kidney disease. (3) Severe aortic valve stenosis: Patient may benefit from aortic valve intervention. He requires a cardiac catheterization to rule out any significant coronary artery disease. We may consider doing his one of the hemoglobin is stable and also after identifying the source of bleeding. (4) Atrial fibrillation: Patient has a history intermittent atrial fibrillation. Currently seems to be in sinus rhythm/multifocal atrial rhythm. (5) Anemia: Patient has a significant drop in the hemoglobin recently. The anemia seems to be stable etiology is not clear. A GI bleeding need to be excluded. (6) COPD (chronic obstructive pulmonary disease): Patient has been treated with bronchodilators. (7) HTN (hypertension): Currently normotensive. May continue on the current medications. Qualifiers: Hypertension type: essential hypertension Qualified Code(s): I10 - Essential (primary) hypertension (8) Dyslipidemia: May continue on the lipid-lowering agents. (9) Chronic kidney disease: The could be multifactorial. The severe aortic valve stenosis could be a contributing factor. Plan Patient requires a cardiac catheterization to further evaluate his coronary status and also the hemodynamics. He may benefit from aortic valve intervention, which will be decided after the coronary angiogram. . The GI work-up is under progress. We will continue on the current medication for the time being. In the event of the patient developing any unusual chest pain, palpitations, SOB or any other new symptoms, advised to contact our office. I may see the patient back in the office in 6 months Attestations Medical Necessity Statement*: Patient requires continued hospital stay for close monitoring and further management Coding Level of Care Code Acute Code for Chg Fwd Diagnoses Acute exacerbation of congestive heart failure I50.9 Elevated troponin R77.8 Severe aortic valve stenosis I35.0 Atrial fibrillation I48.91 Anemia D64.9 COPD (chronic obstructive pulmonary disease) J44.9 HTN (hypertension) I10 Hypertension type: essential hypertension Dyslipidemia E78.5 Chronic kidney disease N18.9
--- NOTE | 2022-05-21 10:29 | PC.SOCIAL ---
Pg 2 IMM Explained to pt Pg 2 IMM. No questions voiced. Provided pt a copy. Initialed, dated, & timed a copy & placed in chart.
[2022-05-21 11:24] LABS: Glucose Point of Care 235 mg/dL (70-110)
--- NOTE | 2022-05-21 11:30 | PC.NURSE ---
Dr. Lawson wishes to hold off on starting off the patient on a heparin gtt due to blood clots in urine.
[2022-05-21] MEDS: insulin lispro 100 unit/1 mL SUBCUT (12:57)
--- NOTE | 2022-05-21 16:00 | PM.PN ---
Subjective Subjective: No complaints of chest pain today. Patient developed hematuria yesterday which appears to be worsening today. 1-2 clots seen in the catheter. He was switched from Lovenox to heparin drip this morning, however the heparin drip has also been held by the afternoon due to motion hematuria. He has crackles on exam and is more dyspneic today. Lower extremity edema has also worsened. Creatinine stable at 1.7. Urine output 2.2 L. Hemoccult tested at bedside is negative. Medications: Reviewed: Yes Medication Review Details: Current Medications Acetaminophen (Acetaminophen 325 Mg Tablet) 650 mg PO Q6H PRN PRN Reason: Mild/Mod Pain Or Temp >/= 101 Last Admin: 05/18/22 22:02 Dose: 650 mg Hydrocodone Bitart/Acetaminophen (Hydrocodone-Acetaminophen 5-325 Mg Tablet) 1 tab PO TID PRN PRN Reason: MODERATE PAIN Last Admin: 05/21/22 05:37 Dose: 1 tab Albuterol/Ipratropium (Ipratropium-Albuterol 3 Ml Neb) 3 ml INHALATION Q6H.RESP [facility] Last Admin: 05/21/22 08:57 Dose: 3 ml Amlodipine Besylate (Amlodipine 10 Mg Tablet) 10 mg PO DAILY [facility] Last Admin: 05/20/22 10:18 Dose: Not Given Aspirin (Aspirin 81 Mg Ec Tablet) 81 mg PO DAILY [facility] Last Admin: 05/21/22 09:56 Dose: 81 mg Bisacodyl (Bisacodyl 5 Mg Tablet) 10 mg PO DAILY PRN; Protocol PRN Reason: Constipation (see protocol) Dextrose (Dextrose 50% Syringe 50 Ml) 25 ml IVP ONCE PRN; Protocol PRN Reason: hypoglycemia protocol Dextrose (Dextrose 50% Syringe 50 Ml) 50 ml IVP PRN PRN; Protocol PRN Reason: hypoglycemia protocol Enoxaparin Sodium (Enoxaparin 100 Mg/Ml Syringe) 100 mg 1 mg/kg (100 mg) SUBCUT Q24H [facility] Last Admin: 05/21/22 09:56 Dose: 100 mg Furosemide (Furosemide 10 Mg/Ml Sdv 10ml) 60 mg IVP BID [facility] Last Admin: 05/19/22 05:16 Dose: 60 mg Glucagon (Glucagon 1 Mg/Ml Inj 1 Ml) 1 mg IM ONCE PRN; Protocol PRN Reason: Adult Acute Hypoglycemia Prot. Dextrose (D5w) 500 mls @ 100 mls/hr IV ONCE PRN; Protocol PRN Reason: Adult Acute Hypoglycemia Prot Amiodarone HCl 900 mg/Dextrose/ IV Miscellaneous Supplies 518 mls @ 0 mls/hr IV .Q0M [facility]; Protocol Last Titration: 05/20/22 10:46 Dose: 0 mg/min, 0 mls/hr Insulin Human Lispro (Insulin Lispro 100 Unit/1 Ml) 0 unit SUBCUT TIDWM [facility]; Protocol Last Admin: 05/21/22 09:53 Dose: Not Given Metoprolol Tartrate (Metoprolol Tartrate 25 Mg Tablet) 25 mg PO BID@0900,2100 [facility] Last Admin: 05/21/22 09:56 Dose: 25 mg Pantoprazole Sodium (Pantoprazole Dr 40 Mg Tablet) 40 mg PO QAM [facility] Last Admin: 05/21/22 05:37 Dose: 40 mg Tamsulosin HCl (Tamsulosin 0.4 Mg Capsule) 0.4 mg PO BID [facility] Last Admin: 05/21/22 09:56 Dose: 0.4 mg Vitals/I&O/Wt Last Vital Signs Temp 97.8 F 05/21/22 11:20 Pulse 100 05/21/22 14:00 Resp 18 05/21/22 13:46 BP 130/98 05/21/22 11:20 Pulse Ox 93 05/21/22 13:46 O2 Del Method 05/21/22 13:46 O2 Flow Rate 1 05/21/22 13:46 05/21/22 05/21/22 05/21/22 06:59 14:59 22:59 Output Total 600 / 1650 600 / 600 Balance -600 / -693.094 -600 / -600 Weight last 48 hrs Weight 99.337 kg Weight 98.702 kg Physical Exam Narrative: General: Complains of chest discomfort when first seen, A-fib with RVR on monitor with heart rate 120 to 140 bpm, AO x3 HEENT: PERRLA, pupils bilaterally equal and reactive, pallors not present Chest: Normal vesicular breath sounds, no added sounds, equal good air entry bilaterally CVS: S1-S2 regular, no murmurs, no tachycardia, no gallops, no rubs Abdomen: Soft, nontender, no organomegaly, bowel sounds present Neuro: No focal deficits, no facial deformity, AO x3, power 5/5 in all limbs Urinary Catheter Management: Goncalves: Cath Placed During This Visit: yes Reason for Continuing Indwelling Catheter: Accurate Measurement of Urinary Output in Critically Ill Patients Urinary Catheter Date of Insertion: 05/18/22 Urinary Catheter Time of Insertion: 14:25 Data 05/21/22 03:08 05/21/22 03:08 A&P Assessment and plan (1) Acute exacerbation of congestive heart failure: (2) Atrial fibrillation: (3) COPD (chronic obstructive pulmonary disease): (4) HTN (hypertension): Qualifiers: Hypertension type: essential hypertension Qualified Code(s): I10 - Essential (primary) hypertension (5) Aortic stenosis: Qualifiers: Cardiac valve disease etiology: nonrheumatic Qualified Code(s): I35.0 - Nonrheumatic aortic (valve) stenosis (6) Coronary artery disease: Qualifiers: Coronary Disease-Associated Artery/Lesion type: [place] artery [place] vs. transplanted heart: [place] heart Associated angina: with other forms of angina Qualified Code(s): I25.118 - Atherosclerotic heart disease of [place] coronary artery with other forms of angina pectoris (7) Anemia: Plan 77 year old male with past medical history of hypertension coronary artery disease CHF COPD aortic stenosis admitted on May 18, 2022 with chief complaint of worsening shortness of breath worsening bilateral lower extremity swelling PND orthopnea, symptoms have been going on for the last 2 months and since then it has progressively worsened. He was admitted to the hospital for decompensated heart failure and was undergoing diuresis which had to be held on May 19, 2022 due to uptrending creatinine. Hospital course also complicated new onset A fib and NSTEMI #NSTEMI EKG with A fib, currently rate controlled Chest pain resolved today. Elevated troponins 150--> 190--> 371 Started Lovenox on 05/20 however same evening started to develop hematuria, switched to heparin drip in am of 05/21 however now stopped due to worsened hematuria. Continue 81 mg p.o. daily. Reported allergy to statins though unable to specify what these are. Started on metoprolol 25 mg p.o. twice daily---> increase to 50mg po BID Echocardiogram shows LVEF 55 to 60%, mild mitral regurgitation, severely dilated left atrium and severe aortic stenosis with JOSE of 0.9 cm? with moderate pulmonary hypertension. Aortic stenosis has progressed compared to 2020. Cardiology consult appreciated Medical mgmt for now, plan for cath possible with resolution of hematuria and no evidence of GI bleed #A-fib with RVR This appears to be a new diagnosis for the patient. HR between 86 to 108 , increases with minimal activity---> increase metoprolol to 50mg po BID TSH normal 1.4 [id number] score: 5, will benefit from anticoagulation, however currently on hold due to hematuria # Decompensated heart failure with preserved ejection fraction. echo as above. Lasix was held in the evening of May 19, 2022 due to uptrending creatinine. Today he has increased edema and crepts Lasix 20 iv x 1 Net negative 2.5L Monitor intake output charting Monitor daily weight Fluid restriction to 1 L Telemetry monitoring Monitor electrolytes Continue telemetry monitoring # Hypertensive urgency: Now resolved. Hold hydralazine and amlodipine. # History of COPD: DuoNebs to continue Supplemental oxygen as needed IS/flutter valve # CKD versus PAULETTE on CKD: Baseline serum creatinine unknown Admission serum creatinine 1.4, trending up to 1.[address] KUB to evaluate for obstrcutive process Goncalves catheter in place Avoid nephrotoxic's # Microcytic anemia: Hemoglobin upon admission at 9.3, drifted down to 8. 8.6, has been stable over past 2 days. From 2020 this appears to have been normal at 12.4. Bedside hemoccult negative ferritin 27, transferrin: 261, b12 452 , folate 10 , suspect iron deficiency anemia Monitor H&H with initiation of anticoagulation. given cardiac history maintain hemoglobin greater than 8 CODE STATUS: Full code DVT prophylaxis: on hold due to hematuria today Attestations Medical Necessity Statement*: NSTEMI, iv diuresis for CHF, hematuria Coding Level of Care Code Acute Code for Chg Fwd High MDM includes number and complexity of problems actively addressed during encounter, amount and/or complexity of data reviewed/ordered and described risk of complication, morbidity or mortality of management as documented Diagnoses Acute exacerbation of congestive heart failure I50.9 Atrial fibrillation I48.91 COPD (chronic obstructive pulmonary disease) J44.9 HTN (hypertension) I10 Hypertension type: essential hypertension Aortic stenosis I35.0 Cardiac valve disease etiology: nonrheumatic Coronary artery disease I25.118 Coronary Disease-Associated Artery/Lesion type: [place] artery [place] vs. transplanted heart: [place] heart Associated angina: with other forms of angina Anemia D64.9
--- NOTE | 2022-05-21 16:11 | CTR_ITS ---
PROCEDURE INFORMATION: Exam: CT Abdomen And Pelvis Without Contrast Exam date and time: 05/21/2022 6:07 PM Age: 77 years old Clinical indication: Abdominal pain; Generalized; Additional info: Jimbo, hematuria, evaluate for stones, hydronephrosis TECHNIQUE: Imaging protocol: Computed tomography of the abdomen and pelvis without contrast. Radiation optimization: All CT scans at this facility use at least one of these dose optimization techniques: automated exposure control; mA and/or kV adjustment per patient size (includes targeted exams where dose is matched to clinical indication); or iterative reconstruction. REPORTING DATA: Count of CT and Cardiac NM exams in prior 12 months: This patient has received 0 known CTs and 0 known cardiac nuclear medicine studies in the 12 months prior to the current study. COMPARISON: CT chest wo con [id number] 03/08/2020 2:38 PM RADIATION DOSE METRICS: Total DLP (mGy-cm): 902 FINDINGS: Liver: Normal. No mass. Gallbladder and bile ducts: Normal. No calcified stones. No ductal dilation. Pancreas: Normal. No ductal dilation. Spleen: Normal. No splenomegaly. Adrenal glands: Normal. No mass. Kidneys and ureters: Normal. No hydronephrosis. Stomach and bowel: Unremarkable. No obstruction. No mucosal thickening. Appendix: No evidence of appendicitis. Intraperitoneal space: Unremarkable. No free air. No significant fluid collection. Vasculature: Unremarkable. No abdominal aortic aneurysm. Lymph nodes: Unremarkable. No enlarged lymph nodes. Urinary bladder: Unremarkable as visualized. Reproductive: Unremarkable as visualized. Bones/joints: Unremarkable. No acute fracture. Soft tissues: Unremarkable. CT/CT kidney stone [id number] IMPRESSION: 1. Negative for hydronephrosis or urinary calculus as clinically questioned. 2. Diffuse urinary bladder wall thickening, please correlate for possible cystitis. 3. Prostate gland enlarged indenting the base of the urinary bladder. 4. Goncalves catheter seen with tip in the urinary bladder. 5. Bilateral renal cysts, negative for follow-up advised. 6. Small umbilical hernia containing omentum without bowel. 7. Cardiomegaly. 8. Coronary artery atherosclerotic calcifications. 9. Large hiatal hernia. 10. Moderate to large bilateral pleural effusions. 11. Bibasilar atelectasis versus infiltrate. 12. Left adrenal 3.3 cm indeterminate nodule, dedicated nonemergent adrenal imaging could further evaluate this. 13. Diverticulosis without diverticulitis. 14. Constipation.
[2022-05-21] MEDS: FUROsemide 10 mg/mL SDV 4mL 40 MG IVP (17:41)
[2022-05-21] MEDS: metoprolol tartrate 25 mg Tablet 50 MG PO (20:41)
[2022-05-21 21:07] LABS: Glucose Point of Care 167 mg/dL (70-110)
[2022-05-22] VITALS (30 sets, daily range): BP systolic 95–137; BP diastolic 74–95; PULSE 75–104; RESP 15–44; TEMP 36.4–37.7; O2SAT 87–98
[2022-05-22] MEDS: ipratropium-albuterol 3 mL Neb INHALATION ×2 (02:48→09:00)
[2022-05-22 04:59] LABS: Basophils % 0.3 %; Eosinophils # 0.1 10^3/uL (0.0-0.8); Eosinophils % 1.8 %; Hematocrit 26.5 % (42.0-52.0); Hemoglobin 7.8 g/dL (11.7-16.6); Lymphocytes # 0.6 10^3/uL (0.8-4.8); Lymphocytes % 8.2 %; Mean Corpuscular HGB Conc 29.4 g/dL (30.0-36.0); Mean Corpuscular Hemoglobin 21.3 pg (28.0-34.0); Mean Corpuscular Volume 72.2 fl (80-94); Mean Platelet Volume 10.5 fL (7.4-10.4); Monocytes # 0.8 10^3/uL (0.2-0.9); Monocytes % 10.9 %; Neutrophils # 6.06 10^3/uL (1.8-7.7); Neutrophils % 78.3 %; Nucleated Red Blood Cells % 0 %; Platelet Count 244 10^3/cmm (130-400); Red Blood Count 3.67 10^6/uL (4.1-5.3); Red Cell Distribution Width 16.6 % (12.1-15.1); White Blood Count 7.7 10^3/uL (4.0-10.0)
[2022-05-22 05:22] LABS: Alanine Aminotransferase 20 U/L (0-41); Alkaline Phosphatase 76 U/L (40-130); Anion Gap 14.9 (5-19); Aspartate Amino Transferase 20 U/L (0-40); Blood Urea Nitrogen 33 mg/dL (8-23); Calcium 7.8 mg/dL (8.5-10.5); Carbon Dioxide 23 mmol/L (22-29); Chloride 105 mmol/L (98-107); Globulin 2.5 g/dL (1.3-4.6); Glucose 149 mg/dL (65-115); Osmolality Calculated 298 mOsm/kg (285-295); Potassium 3.9 mmol/L (3.5-5.1); Sodium 139 mmol/L (136-145); Total Bilirubin 0.5 mg/dL (0.15-1.2); Total Protein 5.5 g/dL (6.6-8.7)
[2022-05-22] MEDS: pantoprazole DR 40 mg Tablet PO (05:28)
[2022-05-22] MEDS: acetaminophen 325 mg Tablet 650 MG PO (06:29)
[2022-05-22 07:29] LABS: Glucose Point of Care 163 mg/dL (70-110)
[2022-05-22] MEDS: insulin lispro 100 unit/1 mL SUBCUT ×2 (08:25→12:00)
[2022-05-22] MEDS: bisacodyl 5 mg Tablet 10 MG PO (09:08)
[2022-05-22] MEDS: aspirin 81 mg EC Tablet PO (09:09)
[2022-05-22] MEDS: tamsulosin 0.4 mg Capsule PO (09:09)
--- NOTE | 2022-05-22 10:20 | PC.NURSE ---
Patient's am labs were reviewed with patient and his daughter. Questions were answered and there was no further education needed at this time.
--- NOTE | 2022-05-22 11:24 | PC.NURSE ---
Pts and daughters at bedside. Patient is upset with a heart rate in the 140-150's. RN had patient's family step out to see if he can relax to decrease heart rate. Patient was able to calm down a bit since his family stepped out. Will notify Dr. Lawson about increased heart rate.
[2022-05-22 11:40] LABS: Glucose Point of Care 153 mg/dL (70-110)
[2022-05-22] MEDS: heparin drip 25,000 UNIT/500 ML PREMIX 27 UNIT IV (13:58)
[2022-05-22] MEDS: FUROsemide 10 mg/mL SDV 4mL 40 MG IVP (15:19)
--- NOTE | 2022-05-22 15:41 | PM.TDS ---
Transfer Summary Providers Date of Admission: 05/18/22 08:57 Date of Discharge/Transfer: 05/22/22 Attending Provider at Admission: Domingo Armendariz MD Attending Provider at Transfer: Tiffanie Lawson MD Primary Care Provider: Ny Elizabeth DO Transfer Plans: Anticipated date of transfer: 05/22/22. Diagnoses at Discharge Discharge Diagnosis (1) Acute exacerbation of congestive heart failure: Status: Acute (2) Elevated troponin: Status: Acute (3) Severe aortic valve stenosis: Status: Acute (4) Atrial fibrillation: Status: Acute (5) Anemia: Status: Acute (6) COPD (chronic obstructive pulmonary disease): Status: Acute (7) HTN (hypertension): Status: Acute Qualifiers: Hypertension type: essential hypertension Qualified Code(s): I10 - Essential (primary) hypertension (8) Dyslipidemia: Status: Acute (9) Chronic kidney disease: Status: Acute Reason for Visit Reason for Visit SOB Hospital Course Hospital Course Vin Pena is a 77 year old male with past medical history of hypertension coronary artery disease CHF COPD aortic stenosis came in with chief complaint of worsening shortness of breath worsening bilateral lower extremity swelling PND orthopnea, symptoms have been going on for the last 2 months and since then it has progressively worsened. He was admitted to the hospital and started on treatment for decompensated heart failure with preserved ejection fraction. Echocardiogram was performed which showed severe aortic stenosis with JOSE of 0.9. He was started on diuresis with Lasix 60 mg IV twice daily. Upon presentation he also had hypertensive urgency which was well controlled after increasing the dose of amlodipine and starting as needed hydralazine. On May 20 at around 9 AM patient started to complain of chest pain. The pain was located in the center of his chest, more towards the left side. He was noted to be in A-fib with RVR during the events with a heart rate ranging between 120 to 140 bpm. Systolic blood pressure at that time dropped to 78-92 during this event. Rate was controlled spontaneously after a few minutes without any directed intervention, blood pressure improved with control of heart rate and patient was started on metoprolol, currently going at 50 mg p.o. twice daily with which heart rate is under good control. Troponin series was drawn which showed a baseline of 150, trending up to 190 with a 2-hour delta of 40 and then at 6 hours trended up to 371 with a delta of 220. Upon admission the baseline troponin had been at 85 without any significant delta at 2 or 6 hours. Patient was diagnosed with an NSTEMI. Cardiology was consulted and was planned for a cardiac cath, however angiogram has not been able to be performed thus far due to a complicated hospital course. Patient had acute kidney injury with creatinine peaking at 1.7, now has been stable over the last 3 days, currently at 1.6. To compare, last available creatinine from 2019 was at 1.2. His hemoglobin upon admission was at 9.3, has slowly drifted down during the course of admission to be at 7.8 today. Due to ongoing chest pain, NSTEMI, to keep her hemoglobin goal at 8, patient is ordered for 1 packed red blood cell transfusion today. His labs are consistent with iron deficiency. Hemoccult performed at bedside was negative. CT of the abdomen and pelvis was negative for any intra-abdominal bleeding. On May 21, 2022 patient also developed gross hematuria for which anticoagulation needed to be held. He had a few clots in his urine, however on the morning of transfer he is starting to have clear urine again. No more clots are noted. Patient has been restarted on a heparin drip today. He is also receiving aspirin. Patient reports allergy to statins. His other comorbidities include severe aortic stenosis, atrial fibrillation. And diabetes mellitus. Patient is continuing to have intermittent chest pain which is relieved with opiates. Patient has been extremely nervous with all of his current medical issues, he wishes to be transferred to a [facility] where the rest of his family lives so that he can have family support as he recovers from his illnesses. Transfer was initiated at patient request. He has been accepted at [facility] in [place]. His current medications are aspirin 81 mg, Lasix 40 mg IV every 24 hours, heparin GTT, insulin sliding scale, metoprolol tartrate 50 mg p.o. twice daily, DuoNeb inhalation every 6 hours, Protonix 40 mg p.o. daily, Flomax 0.4 mg p.o. twice daily. Norvasc has been on hold since initiating metoprolol as blood pressure has been well controlled. Hydrocodone- APAP 06/18/2024 3 times daily as needed Physical Exam Narrative: General: No acute distress, AO x3 HEENT: PERRLA, pupils bilaterally equal and reactive, pallors not present Chest: scattered crepts to auscultation B/L CVS: S1-S2 regular, no murmurs, no tachycardia, no gallops, no rubs Abdomen: Soft, nontender, no organomegaly, bowel sounds present Neuro: No focal deficits, no facial deformity, AO x3, power 5/5 in all limbs Extremities: pitting edema B/L LE Urinary Catheter Management: Goncalves: Cath Placed During This Visit: yes Reason for Continuing Indwelling Catheter: Other Urinary Catheter Date of Insertion: 05/18/22 Urinary Catheter Time of Insertion: 14:25 TS Data Studies Completed and Pending Pending at discharge Category Date Time Status Blood Culture Stat Lab 05/18/22 10:45 Results Fecal Occult Blood [Immunochemical Fecal OCB] Stat Lab 05/20/22 09:50 Uncollected Leukocyte Reduced RBC Routine Lab 05/22/22 12:05 Ordered Platelet Count Q2D Lab 05/23/22 04:00 Ordered Platelet Count Q2D Lab 05/25/22 04:00 Ordered Type and Screen Routine Lab 05/22/22 12:05 Ordered Labs from last 24 hours 05/22/22 05/22/22 05/22/22 13:10 11:33 07:12 WBC RBC Hgb Hct MCV MCH MCHC RDW Plt Count MPV Neut % (Auto) Lymph % (Auto) [place] % (Auto) Eos % (Auto) Baso % (Auto) Neut # (Auto) Lymph # (Auto) [place] # (Auto) Eos # (Auto) Baso # (Auto) Nucleated RBC % (auto) Nucleated RBCs # Sodium Potassium Chloride Carbon Dioxide Anion Gap BUN Creatinine GFR Calculation Glucose POC Glucose 153 H 163 H Calculated Osmolality Calcium Total Bilirubin AST ALT Alkaline Phosphatase Total Protein Albumin Globulin Blood Type AB Negative Rho(D) Type Negative Antibody Screen Negative Crossmatch See Detail 05/22/22 05/22/22 05/21/22 04:18 04:18 20:48 WBC 7.7 RBC 3.67 L Hgb 7.8 L Hct 26.5 L MCV 72.2 L MCH 21.3 L MCHC 29.4 L RDW 16.6 H Plt Count 244 MPV 10.5 H Neut % (Auto) 78.3 Lymph % (Auto) 8.2 [place] % (Auto) 10.9 Eos % (Auto) 1.8 Baso % (Auto) 0.3 Neut # (Auto) 6.06 Lymph # (Auto) 0.6 L [place] # (Auto) 0.8 Eos # (Auto) 0.1 Baso # (Auto) 0.0 Nucleated RBC % (auto) 0 Nucleated RBCs # 0.0 Sodium 139 Potassium 3.9 Chloride 105 Carbon Dioxide 23 Anion Gap 14.9 BUN 33 H Creatinine 1.6 H GFR Calculation Not Reportable Glucose 149 H POC Glucose 167 H Calculated Osmolality 298 H Calcium 7.8 L Total Bilirubin 0.5 AST 20 ALT 20 Alkaline Phosphatase 76 Total Protein 5.5 L Albumin 3.0 L Globulin 2.5 Blood Type Rho(D) Type Antibody Screen Crossmatch Completed Studies During Hospitalization Category Date Time Status CT abdomen renal stone [CT kidney stone 31806] Routine Cat Scan 05/21/22 16:11 Completed XR chest 1V portable [id number] Stat Exams 05/18/22 07:54 Completed CV. echo complete* [id number] Routine Ultrasound 05/19/22 06:00 Completed Laboratory Last Values WBC 7.7 10^3/uL (4.0-10.0) 05/22/22 04:18 RBC 3.67 10^6/uL (4.1-5.3) L 05/22/22 04:18 Hgb 7.8 g/dL (11.7-16.6) L 05/22/22 04:18 Hct 26.5 % (42.0-52.0) L 05/22/22 04:18 MCV 72.2 fl (80-94) L 05/22/22 04:18 MCH 21.3 pg (28.0-34.0) L 05/22/22 04:18 MCHC 29.4 g/dL (30.0-36.0) L 05/22/22 04:18 RDW 16.6 % (12.1-15.1) H 05/22/22 04:18 Plt Count 244 10^3/cmm (130-400) 05/22/22 04:18 MPV 10.5 fL (7.4-10.4) H 05/22/22 04:18 Neut % (Auto) 78.3 % 05/22/22 04:18 Lymph % (Auto) 8.2 % 05/22/22 04:18 [place] % (Auto) 10.9 % 05/22/22 04:18 Eos % (Auto) 1.8 % 05/22/22 04:18 Baso % (Auto) 0.3 % 05/22/22 04:18 Neut # (Auto) 6.06 10^3/uL (1.8-7.7) 05/22/22 04:18 Lymph # (Auto) 0.6 10^3/uL (0.8-4.8) L 05/22/22 04:18 [place] # (Auto) 0.8 10^3/uL (0.2-0.9) 05/22/22 04:18 Eos # (Auto) 0.1 10^3/uL (0.0-0.8) 05/22/22 04:18 Baso # (Auto) 0.0 10^3/uL (0.0-0.1) 05/22/22 04:18 Nucleated RBC % (auto) 0 % 05/22/22 04:18 Nucleated RBCs # 0.0 /100WBC 05/22/22 04:18 Specimen Type Arterial 05/18/22 08:04 Sample Site Radial, right 05/18/22 08:04 ABG pH 7.39 (7.35-7.45) 05/18/22 08:04 ABG pCO2 36.1 mmHg (35-45) 05/18/22 08:04 ABG pO2 62.7 mmHg (80.0-100.0) L 05/18/22 08:04 ABG HCO3 21.8 mmol/L (22-26) L 05/18/22 08:04 ABG Base Excess -2.8 mmol/L (-2.0-2.0) L 05/18/22 08:04 Harlan Test Pos 05/18/22 08:04 Hematocrit 30.0 % (42-52) L 05/18/22 08:04 O2 Delivery Device None 05/18/22 08:04 FiO2 21.0 % 05/18/22 08:04 Sheet Metal Welder ID [email or web address] 05/18/22 08:04 Sodium 139 mmol/L (136-145) 05/22/22 04:18 Potassium 3.9 mmol/L (3.5-5.1) 05/22/22 04:18 Chloride 105 mmol/L (98-107) 05/22/22 04:18 Carbon Dioxide 23 mmol/L (22-29) 05/22/22 04:18 Anion Gap 14.9 (5-19) 05/22/22 04:18 BUN 33 mg/dL (8-23) H 05/22/22 04:18 Creatinine 1.6 mg/dL (0.7-1.2) H 05/22/22 04:18 GFR Calculation Not Reportable 05/22/22 04:18 Glucose 149 mg/dL (65-115) H 05/22/22 04:18 POC Glucose 153 mg/dL (70-110) H 05/22/22 11:33 Estimat Average Glucose 128 05/19/22 04:32 Hemoglobin A1c 6.1 % (4.0-6.0) H 05/19/22 04:32 Calculated Osmolality 298 mOsm/kg (285-295) H 05/22/22 04:18 Calcium 7.8 mg/dL (8.5-10.5) L 05/22/22 04:18 Magnesium 1.9 mg/dL (1.7-2.3) 05/19/22 04:32 Transferrin 261 mg/dL (200-360) 05/20/22 03:28 Ferritin 27 ng/mL (30-400) L 05/20/22 03:28 Total Bilirubin 0.5 mg/dL (0.15-1.2) 05/22/22 04:18 AST 20 U/L (0-40) 05/22/22 04:18 ALT 20 U/L (0-41) 05/22/22 04:18 Alkaline Phosphatase 76 U/L (40-130) 05/22/22 04:18 Troponin T Gen 5 ng/L Cancelled 05/20/22 09:23 Troponin T Baseline 151 ng/L (0-15) H* 05/20/22 09:23 Troponin T 120 Minute 192.7 ng/L (0-15) H 05/20/22 11:25 Delta Troponin T 41.7 ABS# (0-10) H* 05/20/22 11:25 Troponin T Hi Sens 6Hr 371.3 ng/L (0-15) H 05/20/22 15:37 Troponin T Hi Sens 6Hr Delta 220.3 ng/L (0-12) H* 05/20/22 15:37 NT-Pro-B Natriuret Pep 7577 pg/mL (0-450) H 05/18/22 08:07 Total Protein 5.5 g/dL (6.6-8.7) L 05/22/22 04:18 Albumin 3.0 g/dL (3.5-5.2) L 05/22/22 04:18 Globulin 2.5 g/dL (1.3-4.6) 05/22/22 04:18 Vitamin B12 452 pg/mL (232-1245) 05/20/22 03:28 Folate 10.8 ng/mL (4.5-32.2) 05/20/22 03:28 Procalcitonin 0.43 ng/mL (0-0.5) 05/19/22 04:32 TSH 1.40 uIU/mL (0.27-4.20) 05/19/22 04:32 Blood Type AB Negative 05/22/22 13:10 Rho(D) Type Negative 05/22/22 13:10 Antibody Screen Negative 05/22/22 13:10 Crossmatch See Detail 05/22/22 13:10 Radiology Impressions Chest X-Ray 05/18/22 07:54 IMPRESSION: 1. Mild pulmonary vascular congestion. 2. Bibasilar pulmonary partial atelectasis. Superimposed pneumonitis is difficult to exclude. Clinical correlation is recommended. 3. Small bilateral pleural effusions. Abdomen/Pelvis CT 05/21/22 16:11 IMPRESSION: 1. Negative for hydronephrosis or urinary calculus as clinically questioned. 2. Diffuse urinary bladder wall thickening, please correlate for possible cystitis. 3. Prostate gland enlarged indenting the base of the urinary bladder. 4. Goncalves catheter seen with tip in the urinary bladder. 5. Bilateral renal cysts, negative for follow-up advised. 6. Small umbilical hernia containing omentum without bowel. 7. Cardiomegaly. 8. Coronary artery atherosclerotic calcifications. 9. Large hiatal hernia. 10. Moderate to large bilateral pleural effusions. 11. Bibasilar atelectasis versus infiltrate. 12. Left adrenal 3.3 cm indeterminate nodule, dedicated nonemergent adrenal imaging could further evaluate this. 13. Diverticulosis without diverticulitis. 14. Constipation. Imaging Echo: My impression: TTE : CONCLUSIONS ?Left ventricular systolic function is normal with EF 55 to 60%. ?Mild mitral regurgitation ?Severely dilated left atrium ?Severe aortic stenosis with aortic valve area of 0.98 cm squared and ?mean gradient across aortic valve of 43 mmHg. ?Mild tricuspid regurgitation ?Moderate pulmonary hypertension ?Compared to prior echocardiogram from 2019, aortic stenosis has ?progressed and is severe now. Recent Clincial Data Last Vital Signs Temp 99.2 F 05/22/22 15:11 Pulse 89 05/22/22 15:11 Resp 29 H 05/22/22 15:11 BP 129/95 05/22/22 15:11 Pulse Ox 98 05/22/22 15:11 O2 Del Method 05/22/22 15:11 O2 Flow Rate 3 05/22/22 08:00 Vital Signs Temp Pulse Resp BP Pulse Ox O2 Del Method O2 Flow Rate 05/22/22 15:11 99.2 F 89 29 H 129/95 98 Nasal Cannula 05/22/22 11:00 86 29 H 95/74 97 05/22/22 10:30 90 16 93 05/22/22 10:00 97 26 H 95/74 95 05/22/22 09:30 95 22 H 87 L 05/22/22 09:00 81 35 H 98 05/22/22 08:30 102 H 15 104/75 96 05/22/22 08:00 79 20 H 98 05/22/22 07:30 77 26 H 104/75 97 05/22/22 07:00 84 19 H 87 L 05/22/22 06:30 88 31 H 96 05/22/22 06:00 92 23 H 91 05/22/22 05:30 94 24 H 94 05/22/22 05:00 75 25 H 98 05/22/22 04:30 92 23 H 128/87 97 05/22/22 04:00 79 23 H 128/87 97 05/22/22 11:10 97.6 F 81 20 H 112/74 98 Nasal Cannula 05/22/22 08:00 90 05/22/22 09:10 90 05/22/22 08:00 86 18 96 Nasal Cannula 3 05/22/22 07:13 98.5 F 85 27 H 104/75 95 Nasal Cannula 05/22/22 05:53 95 05/22/22 04:00 99.1 F Intake & Output/Weight 05/20/22 05/21/22 05/22/22 05/23/22 06:59 06:59 06:59 06:59 Intake Total 960 / 960 956.906 / 956.906 600 / 600 1080 / 1080 Output Total 1550 / 1550 1650 / 1650 2200 / 2200 375 / 375 Balance -590 / -590 -693.094 / -693.094 -1600 / -1600 705 / 705 Weight 98.702 kg 99.337 kg 96.978 kg Vitals Last Vital Signs Temp 99.2 F 05/22/22 15:11 Pulse 89 05/22/22 15:11 Resp 29 H 05/22/22 15:11 BP 129/95 05/22/22 15:11 Pulse Ox 98 05/22/22 15:11 O2 Del Method 05/22/22 15:11 O2 Flow Rate 3 05/22/22 08:00 TS Medications Medications Acetaminophen (Acetaminophen 325 Mg Tablet) 650 mg PO Q6H PRN PRN Reason: Mild/Mod Pain Or Temp >/= 101 Last Admin: 05/22/22 06:29 Dose: 650 mg Hydrocodone Bitart/Acetaminophen (Hydrocodone-Acetaminophen 5-325 Mg Tablet) 1 tab PO TID PRN PRN Reason: MODERATE PAIN Last Admin: 05/21/22 23:47 Dose: 1 tab Albuterol/Ipratropium (Ipratropium-Albuterol 3 Ml Neb) 3 ml INHALATION Q6H.RESP [facility] Last Admin: 05/22/22 14:20 Dose: Not Given Amlodipine Besylate (Amlodipine 10 Mg Tablet) 10 mg PO DAILY [facility] Last Admin: 05/20/22 10:18 Dose: Not Given Aspirin (Aspirin 81 Mg Ec Tablet) 81 mg PO DAILY [facility] Last Admin: 05/22/22 09:09 Dose: 81 mg Bisacodyl (Bisacodyl 5 Mg Tablet) 10 mg PO DAILY PRN; Protocol PRN Reason: Constipation (see protocol) Last Admin: 05/22/22 09:08 Dose: 10 mg Dextrose (Dextrose 50% Syringe 50 Ml) 25 ml IVP ONCE PRN; Protocol PRN Reason: hypoglycemia protocol Dextrose (Dextrose 50% Syringe 50 Ml) 50 ml IVP PRN PRN; Protocol PRN Reason: hypoglycemia protocol Furosemide (Furosemide 10 Mg/Ml Sdv 4ml) 40 mg IVP Q24H [facility] Last Admin: 05/22/22 15:19 Dose: 40 mg Glucagon (Glucagon 1 Mg/Ml Inj 1 Ml) 1 mg IM ONCE PRN; Protocol PRN Reason: Adult Acute Hypoglycemia Prot. Heparin Sodium (Porcine) (Heparin 5,000 Unit/Ml Inj 1 Ml) 0 unit IV PRN PRN; Protocol PRN Reason: Heparin weight-base protocol Dextrose (D5w) 500 mls @ 100 mls/hr IV ONCE PRN; Protocol PRN Reason: Adult Acute Hypoglycemia Prot Amiodarone HCl 900 mg/Dextrose/ IV Miscellaneous Supplies 518 mls @ 0 mls/hr IV .Q0M [facility]; Protocol Last Titration: 05/20/22 10:46 Dose: 0 mg/min, 0 mls/hr Heparin Sodium/Sodium Chloride (Heparin Drip) 25,000 unit in 500 mls @ 0 mls/hr IV .Q0M [facility]; Protocol Last Admin: 05/22/22 13:58 Dose: 13.59 unit/kg/hr, 27 mls/hr Insulin Human Lispro (Insulin Lispro 100 Unit/1 Ml) 0 unit SUBCUT TIDWM [facility]; Protocol Last Admin: 05/22/22 12:00 Dose: 2 unit Metoprolol Tartrate (Metoprolol Tartrate 25 Mg Tablet) 50 mg PO BID@0900,2100 [facility] Last Admin: 05/22/22 09:43 Dose: Not Given Pantoprazole Sodium (Pantoprazole Dr 40 Mg Tablet) [facility] Last Admin: 05/22/22 05:28 Dose: 40 mg Sodium Chloride (Sodium Chloride 0.9% 100 Ml Bag) 50 ml IV PRN PRN PRN Reason: Blood transfusion prime and flush Stop: 05/23/22 12:05 Tamsulosin HCl (Tamsulosin 0.4 Mg Capsule) 0.4 mg PO BID [facility] Last Admin: 05/22/22 09:09 Dose: 0.4 mg Discontinued Medications Albuterol Sulfate (Albuterol 2.5 Mg/3 Ml Neb) 2.5 mg INHALATION ONCE ONE Stop: 05/18/22 07:56 Last Admin: 05/18/22 08:37 Dose: 2.5 mg Amlodipine Besylate (Amlodipine 5 Mg Tablet) 5 mg PO ONCE ONE Stop: 05/18/22 12:12 Last Admin: 05/18/22 12:54 Dose: 5 mg Amlodipine Besylate (Amlodipine 5 Mg Tablet) 5 mg PO ONCE ONE Stop: 05/18/22 15:56 Last Admin: 05/18/22 18:09 Dose: 5 mg Aspirin (Aspirin 81 Mg Chew Tablet) 324 mg PO NOW ONE Stop: 05/20/22 12:13 Last Admin: 05/20/22 12:45 Dose: 324 mg Enoxaparin Sodium (Enoxaparin 100 Mg/Ml Syringe) 100 mg 1 mg/kg (100 mg) SUBCUT Q12H [facility] Last Admin: 05/18/22 11:58 Dose: 100 mg Enoxaparin Sodium (Enoxaparin 40 Mg/0.4 Ml Syringe) 40 mg SUBCUT Q24H [facility] Last Admin: 05/19/22 18:09 Dose: 40 mg Enoxaparin Sodium (Enoxaparin 100 Mg/Ml Syringe) 100 mg 1 mg/kg (100 mg) SUBCUT Q24H [facility] Last Admin: 05/21/22 09:56 Dose: 100 mg Furosemide (Furosemide 10 Mg/Ml Sdv 4ml) 40 mg IVP ONCE ONE Stop: 05/18/22 07:57 Last Admin: 05/18/22 08:03 Dose: 40 mg Furosemide (Furosemide 10 Mg/Ml Sdv 4ml) 40 mg IVP ONCE ONE Stop: 05/18/22 08:58 Last Admin: 05/18/22 09:07 Dose: 40 mg Furosemide (Furosemide 10 Mg/Ml Sdv 10ml) 60 mg IVP BID [facility] Last Admin: 05/19/22 05:16 Dose: 60 mg Furosemide (Furosemide 10 Mg/Ml Sdv 4ml) 40 mg IVP ONCE ONE Stop: 05/18/22 16:38 Last Admin: 05/18/22 18:09 Dose: 40 mg Furosemide (Furosemide 10 Mg/Ml Sdv 4ml) 20 mg IVP ONCE ONE Stop: 05/20/22 09:49 Last Admin: 05/20/22 10:30 Dose: 20 mg Hydralazine HCl (Hydralazine 50 Mg Tablet) 50 mg PO TID [facility] Last Admin: 05/19/22 20:52 Dose: 50 mg Labetalol HCl (Labetalol 5 Mg/Ml Sdv 20ml) 10 mg IVP ONCE ONE Stop: 05/18/22 08:39 Last Admin: 05/18/22 08:46 Dose: 10 mg Labetalol HCl (Labetalol 5 Mg/Ml Sdv 20ml) 20 mg IVP ONCE ONE Stop: 05/18/22 09:03 Last Admin: 05/18/22 09:07 Dose: 20 mg Metoprolol Tartrate (Metoprolol Tartrate 25 Mg Tablet) 25 mg PO BID@0900,2100 [facility] Last Admin: 05/21/22 09:56 Dose: 25 mg Allergies naproxen [From Naprosyn] Adverse Reaction (Verified 05/18/22 09:22) NA simvastatin [From Zocor] Adverse Reaction (Verified 05/18/22 09:22) NA Home Medications lansoprazole 30 mg capsule,delayed release 30 mg PO QAM 04/12/19 [History Confirmed 05/18/22] metformin 500 mg tablet 500 mg PO BID 04/12/19 [History Confirmed 05/18/22] furosemide 40 mg tablet (Lasix) 40 mg PO DAILY PRN Edema 05/18/22 [History Confirmed 05/18/22] hydrocodone 5 mg-acetaminophen 325 mg tablet 1 tab PO TID PRN Pain 05/18/22 [History Confirmed 05/18/22] tamsulosin 0.4 mg capsule 0.4 mg PO BID 05/18/22 [History Confirmed 05/18/22] Discharge Plan Discharge Patient Disposition: Xfer Other Condition: Stable Prescriptions: No Action metformin 500 mg tablet 500 mg PO BID lansoprazole 30 mg capsule,delayed release(DR/EC) 30 mg PO QAM hydrocodone-acetaminophen 5-325 mg tablet 1 tab PO TID PRN (Reason: Pain) Lasix 40 mg tablet 40 mg PO DAILY PRN (Reason: Edema) Rx Instructions: Must have follow-up for further refills tamsulosin 0.4 mg capsule 0.4 mg PO BID Discharge Orders: Transfer Out of Facility (Order); Ordered 05/22/22 Ordered By: Tiffanie Lawson Referrals: Christina Delacruz FNP [Referring] - Patient Instructions: Opioid Safety Transfer Attestations Time Spent in Transfer Care: greater than 30 min Quality Metrics Clinical Quality Measures [ Acute Myocardial Infaction { Clinical Trial Participant: No; Contraindication to aspirin: None; Aspirin prescribed; Contraindication to statin: Drug allergy;}] Coding Level of Care Code 39913 Total time (in minutes) for Discharge: 75 Other Coding Information Prolonged care (total time indicated above or notated here) More than 45 minutes were spent in attempting to arrange transfer at different facilities in [place]. Rest of the time was spent in talking to the patient family, updating regarding patient's status, and examining patient. Diagnoses Acute exacerbation of congestive heart failure I50.9 Elevated troponin R77.8 Severe aortic valve stenosis I35.0 Atrial fibrillation I48.91 Anemia D64.9 COPD (chronic obstructive pulmonary disease) J44.9 HTN (hypertension) I10 Hypertension type: essential hypertension Dyslipidemia E78.5 Chronic kidney disease N18.9
--- NOTE | 2022-05-22 16:09 | PC.NURSE ---
Blood transfusion 15 minute check revealed vital signs within normal limits. Rate increased to 150 mL/ hr. Will monitor patient during the remainder of the transfusion.
--- NOTE | 2022-05-22 16:40 | PM.PN ---
Subjective Subjective: The patient is feeling okay. Denies any chest pain or chest tightness. No unusual shortness of breath. No fever, chills or cough. The vital signs remained stable. Hemoglobin is slowly dropping. The Hemoccult was negative. Medications: Medication Review Details: Current Medications Acetaminophen (Acetaminophen 325 Mg Tablet) 650 mg PO Q6H PRN PRN Reason: Mild/Mod Pain Or Temp >/= 101 Last Admin: 05/22/22 06:29 Dose: 650 mg Hydrocodone Bitart/Acetaminophen (Hydrocodone-Acetaminophen 5-325 Mg Tablet) 1 tab PO TID PRN PRN Reason: MODERATE PAIN Last Admin: 05/21/22 23:47 Dose: 1 tab Albuterol/Ipratropium (Ipratropium-Albuterol 3 Ml Neb) 3 ml INHALATION Q6H.RESP [facility] [place] Last Admin: 05/22/22 14:20 Dose: Not Given Amlodipine Besylate (Amlodipine 10 Mg Tablet) 10 mg PO DAILY [facility] [place] Last Admin: 05/20/22 10:18 Dose: Not Given Aspirin (Aspirin 81 Mg Ec Tablet) 81 mg PO DAILY [facility] [place] Last Admin: 05/22/22 09:09 Dose: 81 mg Bisacodyl (Bisacodyl 5 Mg Tablet) 10 mg PO DAILY PRN; Protocol PRN Reason: Constipation (see protocol) Last Admin: 05/22/22 09:08 Dose: 10 mg Dextrose (Dextrose 50% Syringe 50 Ml) 25 ml IVP ONCE PRN; Protocol PRN Reason: hypoglycemia protocol Dextrose (Dextrose 50% Syringe 50 Ml) 50 ml IVP PRN PRN; Protocol PRN Reason: hypoglycemia protocol Furosemide (Furosemide 10 Mg/Ml Sdv 4ml) 40 mg IVP Q24H [facility] [place] Last Admin: 05/22/22 15:19 Dose: 40 mg Glucagon (Glucagon 1 Mg/Ml Inj 1 Ml) 1 mg IM ONCE PRN; Protocol PRN Reason: Adult Acute Hypoglycemia Prot. Heparin Sodium (Porcine) (Heparin 5,000 Unit/Ml Inj 1 Ml) 0 unit IV PRN PRN; Protocol PRN Reason: Heparin weight-base protocol Dextrose (D5w) 500 mls @ 100 mls/hr IV ONCE PRN; Protocol PRN Reason: Adult Acute Hypoglycemia Prot Amiodarone HCl 900 mg/Dextrose/ IV Miscellaneous Supplies 518 mls @ 0 mls/hr IV .Q0M [facility] [place]; Protocol Last Titration: 05/20/22 10:46 Dose: 0 mg/min, 0 mls/hr Heparin Sodium/Sodium Chloride (Heparin Drip) 25,000 unit in 500 mls @ 0 mls/hr IV .Q0M [facility] [place]; Protocol Last Admin: 05/22/22 13:58 Dose: 13.59 unit/kg/hr, 27 mls/hr Insulin Human Lispro (Insulin Lispro 100 Unit/1 Ml) 0 unit SUBCUT TIDWM [facility] [place]; Protocol Last Admin: 05/22/22 12:00 Dose: 2 unit Metoprolol Tartrate (Metoprolol Tartrate 25 Mg Tablet) 50 mg PO BID@0900,2100 [facility] [place] Last Admin: 05/22/22 09:43 Dose: Not Given Pantoprazole Sodium (Pantoprazole Dr 40 Mg Tablet) 40 mg PO QAM [facility] [place] Last Admin: 05/22/22 05:28 Dose: 40 mg Sodium Chloride (Sodium Chloride 0.9% 100 Ml Bag) 50 ml IV PRN PRN PRN Reason: Blood transfusion prime and flush Stop: 05/23/22 12:05 Tamsulosin HCl (Tamsulosin 0.4 Mg Capsule) 0.4 mg PO BID [facility] [place] Last Admin: 05/22/22 09:09 Dose: 0.4 mg Vitals/I&O/Wt Last Vital Signs Temp 98.5 F 05/22/22 15:58 Pulse 85 05/22/22 15:58 Resp 29 H 05/22/22 15:58 BP 124/78 05/22/22 15:42 Pulse Ox 98 05/22/22 15:58 O2 Del Method 05/22/22 15:11 O2 Flow Rate 3 05/22/22 08:00 05/22/22 05/22/22 05/22/22 06:59 14:59 22:59 Intake Total 1080 / 1080 0 / 1080 Output Total 750 / 2200 375 / 375 Balance -750 / -1600 705 / 705 0 / 705 Weight last 48 hrs Weight 213 lb 12.8 oz Weight 219 lb Physical Exam Narrative: GENERAL: The patient is alert and oriented times three. Not in any acute distress. HEENT: No significant pallor, icterus or lymphadenopathy.Oral cavity: There are no mucous membrane lesions. NECK: Trachea appears to be central. No masses noted. No JVD or thyromegaly appreciated. RESPIRATORY: Chest is symmetrical. No intercostals muscle retraction or any accessory muscle activation. There is no chest wall tenderness. Breath sounds are heard bilaterally. No rales or rhonchi heard. No evidence of any consolidation. BREASTS: Deferred. HEART: The heart sounds are normal. No S3 or S4. Ejection systolic murmur of grade 3 or 6 in the aortic area. No diastolic murmurs. No pericardial rub ABDOMEN: No vessel pulsations or distention. No tenderness. No organomegaly appreciated. Bowel sounds are normally heard. : Deferred. RECTAL: Deferred. LYMPHATIC: No lymphadenopathy noted in the neck. EXTREMITIES: No edema or cyanosis. No clubbing. MUSCULOSKELETAL: No acute joint deformities or swelling SKIN: Healing blisters in the lower extremities. 1+ edema bilaterally. NEUROPSYCHIATRIC: The patient is alert and oriented x3. Appears to be in a good mood. No tremors or rigidity noted. Urinary Catheter Management: Goncalves: Cath Placed During This Visit: yes Reason for Continuing Indwelling Catheter: Other Urinary Catheter Date of Insertion: 05/18/22 Urinary Catheter Time of Insertion: 14:25 Data 05/22/22 04:18 05/22/22 04:18 Other Labs: Laboratory Last Values WBC 7.7 10^3/uL (4.0-10.0) 05/22/22 04:18 RBC 3.67 10^6/uL (4.1-5.3) L 05/22/22 04:18 Hgb 7.8 g/dL (11.7-16.6) L 05/22/22 04:18 Hct 26.5 % (42.0-52.0) L 05/22/22 04:18 MCV 72.2 fl (80-94) L 05/22/22 04:18 MCH 21.3 pg (28.0-34.0) L 05/22/22 04:18 MCHC 29.4 g/dL (30.0-36.0) L 05/22/22 04:18 RDW 16.6 % (12.1-15.1) H 05/22/22 04:18 Plt Count 244 10^3/cmm (130-400) 05/22/22 04:18 MPV 10.5 fL (7.4-10.4) H 05/22/22 04:18 Neut % (Auto) 78.3 % 05/22/22 04:18 Lymph % (Auto) 8.2 % 05/22/22 04:18 Reagan % (Auto) 10.9 % 05/22/22 04:18 Eos % (Auto) 1.8 % 05/22/22 04:18 Baso % (Auto) 0.3 % 05/22/22 04:18 Neut # (Auto) 6.06 10^3/uL (1.8-7.7) 05/22/22 04:18 Lymph # (Auto) 0.6 10^3/uL (0.8-4.8) L 05/22/22 04:18 Reagan # (Auto) 0.8 10^3/uL (0.2-0.9) 05/22/22 04:18 Eos # (Auto) 0.1 10^3/uL (0.0-0.8) 05/22/22 04:18 Baso # (Auto) 0.0 10^3/uL (0.0-0.1) 05/22/22 04:18 Nucleated RBC % (auto) 0 % 05/22/22 04:18 Nucleated RBCs # 0.0 /100WBC 05/22/22 04:18 Specimen Type Arterial 05/18/22 08:04 Sample Site Radial, right 05/18/22 08:04 ABG pH 7.39 (7.35-7.45) 05/18/22 08:04 ABG pCO2 36.1 mmHg (35-45) 05/18/22 08:04 ABG pO2 62.7 mmHg (80.0-100.0) L 05/18/22 08:04 ABG HCO3 21.8 mmol/L (22-26) L 05/18/22 08:04 ABG Base Excess -2.8 mmol/L (-2.0-2.0) L 05/18/22 08:04 Harlan Test Pos 05/18/22 08:04 Hematocrit 30.0 % (42-52) L 05/18/22 08:04 O2 Delivery Device None 05/18/22 08:04 FiO2 21.0 % 05/18/22 08:04 Traveling Representative ID [email or web address] 05/18/22 08:04 Sodium 139 mmol/L (136-145) 05/22/22 04:18 Potassium 3.9 mmol/L (3.5-5.1) 05/22/22 04:18 Chloride 105 mmol/L (98-107) 05/22/22 04:18 Carbon Dioxide 23 mmol/L (22-29) 05/22/22 04:18 Anion Gap 14.9 (5-19) 05/22/22 04:18 BUN 33 mg/dL (8-23) H 05/22/22 04:18 Creatinine 1.6 mg/dL (0.7-1.2) H 05/22/22 04:18 GFR Calculation Not Reportable 05/22/22 04:18 Glucose 149 mg/dL (65-115) H 05/22/22 04:18 POC Glucose 153 mg/dL (70-110) H 05/22/22 11:33 Estimat Average Glucose 128 05/19/22 04:32 Hemoglobin A1c 6.1 % (4.0-6.0) H 05/19/22 04:32 Calculated Osmolality 298 mOsm/kg (285-295) H 05/22/22 04:18 Calcium 7.8 mg/dL (8.5-10.5) L 05/22/22 04:18 Magnesium 1.9 mg/dL (1.7-2.3) 05/19/22 04:32 Transferrin 261 mg/dL (200-360) 05/20/22 03:28 Ferritin 27 ng/mL (30-400) L 05/20/22 03:28 Total Bilirubin 0.5 mg/dL (0.15-1.2) 05/22/22 04:18 AST 20 U/L (0-40) 05/22/22 04:18 ALT 20 U/L (0-41) 05/22/22 04:18 Alkaline Phosphatase 76 U/L (40-130) 05/22/22 04:18 Troponin T Gen 5 ng/L Cancelled 05/20/22 09:23 Troponin T Baseline 151 ng/L (0-15) H* 05/20/22 09:23 Troponin T 120 Minute 192.7 ng/L (0-15) H 05/20/22 11:25 Delta Troponin T 41.7 ABS# (0-10) H* 05/20/22 11:25 Troponin T Hi Sens 6Hr 371.3 ng/L (0-15) H 05/20/22 15:37 Troponin T Hi Sens 6Hr Delta 220.3 ng/L (0-12) H* 05/20/22 15:37 NT-Pro-B Natriuret Pep 7577 pg/mL (0-450) H 05/18/22 08:07 Total Protein 5.5 g/dL (6.6-8.7) L 05/22/22 04:18 Albumin 3.0 g/dL (3.5-5.2) L 05/22/22 04:18 Globulin 2.5 g/dL (1.3-4.6) 05/22/22 04:18 Vitamin B12 452 pg/mL (232-1245) 05/20/22 03:28 Folate 10.8 ng/mL (4.5-32.2) 05/20/22 03:28 Procalcitonin 0.43 ng/mL (0-0.5) 05/19/22 04:32 TSH 1.40 uIU/mL (0.27-4.20) 05/19/22 04:32 Blood Type AB Negative 05/22/22 13:10 Rho(D) Type Negative 05/22/22 13:10 Antibody Screen Negative 05/22/22 13:10 Crossmatch See Detail 05/22/22 13:10 A&P Assessment and plan (1) Acute exacerbation of congestive heart failure: The heart failure seems to be getting compensated. May continue on the careful IV diuresis. (2) Elevated troponin: Non-ST elevation myocardial infarction is a strong possibility in view of the significant delta associated with chest pain. It may be appropriate to switch that to heparin because of the anemia and the kidney disease. (3) Severe aortic valve stenosis: Patient may benefit from aortic valve intervention. He requires a cardiac catheterization to rule out any significant coronary artery disease. The hemoglobin seems to be slowly dropping. Currently has no evidence of GI bleed. (4) Atrial fibrillation: Patient has a history intermittent atrial fibrillation. Currently seems to be in sinus rhythm/multifocal atrial rhythm. Hemodynamically stable. (5) Anemia: Etiology is not clear. May require further investigation. (6) COPD (chronic obstructive pulmonary disease): Patient has been treated with bronchodilators. (7) HTN (hypertension): Currently normotensive. May continue on the current medications. Qualifiers: Hypertension type: essential hypertension Qualified Code(s): I10 - Essential (primary) hypertension (8) Dyslipidemia: May continue on the lipid-lowering agents. (9) Chronic kidney disease: The could be multifactorial. The severe aortic valve stenosis could be a contributing factor. The kidney function appears to be stable. Plan I had a long discussion with the patient's family regarding his further management, from a cardiac standpoint. Because of the non-ST elevation myocardial infarction, patient requires a cardiac catheterization to further evaluate the coronary status. He also needs to be evaluated for possible aortic valve replacement. Apparently the family wanted the patient to be transferred to [place] since we do not have the facility to do the TAVR here in this hospital. Also the patient has his daughters live in [place]. Dr. Arrieta was informed about this. In the meanwhile, he may continue on the current medications. Attestations Medical Necessity Statement*: Patient requires continued hospital stay for close monitoring and further management Coding Level of Care Code 49882 Diagnoses Acute exacerbation of congestive heart failure I50.9 Elevated troponin R77.8 Severe aortic valve stenosis I35.0 Atrial fibrillation I48.91 Anemia D64.9 COPD (chronic obstructive pulmonary disease) J44.9 HTN (hypertension) I10 Hypertension type: essential hypertension Dyslipidemia E78.5 Chronic kidney disease N18.9
[2022-05-22 17:25] LABS: Glucose Point of Care 126 mg/dL (70-110)
--- NOTE | 2022-05-22 19:02 | PC.NURSE ---
Patient's blood finished and vital signs checked. patient tolerated well. Verbal report given to EMS crew and patient transferred to [facility] in [facility]. RN called report to May RN. Patient's home medications that were locked up at admission, returned to patient' daughter.
--- NOTE | 2022-05-22 19:46 | PC.NURSE ---
Patient is in transit to [facility] via ambulance. Nurse Called Kenny with EMS to make aware that patients PTT came back low and the patients Heparin gtt needs to be increased to 31ml/hr. A bolus of 3900units would also be needed but EMS does not have access to bolus of Heparin so no bolus administered at this time.
--- NOTE | 2022-05-22 19:55 | PC.NURSE ---
Called to update Lin at [facility] regarding patients PTT and increasing gtt to 31ml/hr. Updated her on patient leaving at 18:45 from our hospital.
== END 2022-05-22 18:45 | disposition short-term general hospital (02) | DRG 280 ==
LOC: ER 08:58 → CSU 09:12
PROVIDERS: Admitting Provider Internal Medicine; Emergency Provider Emergency Medicine; PCP Family Medicine; Visit Provider Student in an Organized Health Care Education/Training Program
DX: I13.0 Hypertensive heart and chronic kidney disease with heart failure and stage 1 through stage 4 chronic kidney disease, or unspecified chronic kidney disease (principal); I50.33 Acute on chronic diastolic (congestive) heart failure; I21.4 Non-ST elevation (NSTEMI) myocardial infarction; N17.9 Acute kidney failure, unspecified; N18.9 Chronic kidney disease, unspecified; E11.22 Type 2 diabetes mellitus with diabetic chronic kidney disease; I35.0 Nonrheumatic aortic (valve) stenosis; I48.0 Paroxysmal atrial fibrillation; D63.1 Anemia in chronic kidney disease; J44.9 Chronic obstructive pulmonary disease, unspecified; E78.5 Hyperlipidemia, unspecified; I25.119 Atherosclerotic heart disease of native coronary artery with unspecified angina pectoris; Z95.5 Presence of coronary angioplasty implant and graft; I16.0 Hypertensive urgency; R31.29 Other microscopic hematuria; Z79.84 Long term (current) use of oral hypoglycemic drugs; Z79.891 Long term (current) use of opiate analgesic; I25.2 Old myocardial infarction; N40.1 Benign prostatic hyperplasia with lower urinary tract symptoms
CPT/HCPCS: 36415; 36416; 36430; 36600; 51702; 71045; 74176; 80053; 82607; 82728; 82746; 82803; 82962; 83036; 83735; 83880; 84145; 84443; 84466; 84484; 85025; 85730; 86850; 86900; 86920; 87040; 93005; 93306; 94640; 96372; 96374; 96375; 96376; 99285; J0282; J1644; J1650; J1815; J1940; J3490; J7060; J7613; P9016

== ENCOUNTER 2022-06-03 16:22 | Inpatient (IN) | payer MEDICARE, OTHER, SELFPAY ==
[2022-06-03] VITALS (16 sets, daily range): BP systolic 85–132; BP diastolic 57–88; PULSE 78–153; RESP 16–33; TEMP 36.4; O2SAT 94–98; BMI 29.8
--- NOTE | 2022-06-03 16:40 | ED_ITS ---
Documented by User: Arnold Soto DO 06/04/22 05:57 HPI - Male Genitourinary General: Chief complaint: ER Hold Stated complaint: BLOOD IN OSEI Time Seen by Provider: 06/03/22 16:27 Source: patient Mode of arrival: EMS History of Present Illness: 77-year-old male who presents to the emergency room with complaints of blood in his Osei catheter. He was recently in [place]. A Osei catheter placed. Had been clear until later this afternoon and began to be shine blood. He is not on any anticoagulants. He is on Plavix and aspirin. Catheter was placed due to BPH. Patient recently was in [place] after he had an [place] he evidently had angioplasty with there is also some valve replacement but needed to be done suspect it may have been a TAVR in any event they were unable to do it because of his overall condition those been put off for a time while he was there he developed BPH with bladder outlet obstruction and the catheter was placed. He denies any fever sweats or chills or any flank pain. MD Complaint: other (Gross hematuria) Onset (ago): hour(s) Duration: constant Severity: moderate Relieving factors: none Exacerbating factors: none Associated symptoms: Deny discharge, dysuria, fevers/chills, hematuria, nausea, rash, swelling, urinary incontinence, urinary retention, mass or vomiting Review of Systems Const: Denies: fever(s), chills, body aches, change in appetite, fatigue or malaise ENMT: Denies: throat pain, ear or mastoid pain, nasal discharge or nasal congestion Card: Denies: chest pain, edema, dyspnea on exertion or orthopnea Resp: Denies: dyspnea, productive cough or non-productive cough GI: Denies: nausea or vomiting : Denies: dysuria, urinary incontinence or hematuria Skin/Breast: Denies: rash or pruritus PFSH ED PFSH: Medical History Aortic stenosis BPH w/o urinary obs/LUTS CHF (congestive heart failure) Coronary artery disease Diabetes mellitus Elevated PSA History of non-ST elevation myocardial infarction (NSTEMI) HTN (hypertension) Lower urinary tract symptoms (LUTS) Renal calculi Surgical History H/O hernia repair H/O lithotripsy S/P eye surgery S/P tonsillectomy Family History Father , 80 CAD (coronary artery disease) Hypertension Mother , 90 No problems noted. Social History Smoking and tobacco status: former smoker Quit status (tobacco): has quit using tobacco Year quit tobacco: 1990 - PD x 7 Years Second hand smoke exposure: Yes Smoking risk assessment/counseling performed?: No Alcohol intake: never Lives independently: Yes Household members: spouse Marital status: Current occupational status: retired Current gender identity: Male Physical Exam Const: GENERAL APPEARANCE: cooperative and comfortable ORIENTATION/CONSCIOUSNESS: Yes awake, Yes oriented to person, Yes oriented to place and Yes oriented to time HENMT: COMMON NORMALS: normocephalic, atraumatic and hearing grossly normal bilaterally HEAD & SCALP: normocephalic and atraumatic Resp: COMMON NORMALS: normal respiratory effort, No retractions, No use of accessory muscles and clear to auscultation bilaterally AUSCULTATION: clear to auscultation bilaterally Cardio: COMMON NORMALS: regular rate, regular rhythm and No murmurs present (Cardio) RATE: regular rate RHYTHM: regular rhythm GI: COMMON NORMALS: Soft to palpation and No hepatosplenomegaly present AUSCULTATION: Yes normoactive bowel sounds PALPATION: Yes Soft to palpation, No Tenderness to palpation present (GI), No Guarding due to palpation present (GI) and Yes No hepatosplenomegaly present : COMMON NORMALS: Yes no CVA tenderness BLADDER/KIDNEY EXAM: Yes no CVA tenderness OTHER: Gross hematuria and catheter Back/Pelvis: COMMON NORMALS: no CVA tenderness Extremity: COMMON NORMALS: normal to inspection, capillary refill normal, no clubbing, cyanosis or edema, no calf tenderness and no pedal edema Neuro: SENSORIUM/ORIENTATION: Yes oriented to person, Yes oriented to place and Yes oriented to time Skin: COMMON NORMALS: no rashes or lesions noted GENERAL SKIN EXAM: no rashes or lesions noted Course Vital Signs: Vital signs: Vital Signs Temperature 97.5 F L 06/03/22 16:29 Pulse Rate 73 06/04/22 03:00 Respiratory Rate 20 H 04/19/23 03:00 Blood Pressure 146/88 06/04/22 02:30 Pulse Oximetry 97 06/04/22 05:13 Oxygen Delivery Me thod Room Air 06/04/22 05:13 MDM - Male Medical Decision Making Patient has significant hematuria. Bladder irrigation begun in the emergency room before able to irrigate to clear but a patient can potentially be discharged home. If not he may need to be admitted for continuous bladder irrigation and urology consult for possible cystoscopy. Care signed out to Dr. Light at change of shift. See final notes for diagnosis and disposition. Patient presents here with hematuria through his Osei catheter has had the Osei for 2 weeks for urinary retention we have flushed the catheter twice with large amount of fluid removed clots and got to clear up and's been bloody again after both times spoke to the urologist along with hospitalist will admit with continuous bowel irrigation at this time. Lab Data 06/03/22 17:03 06/03/22 17:03 Radiology Impressions Abdomen/Pelvis CT 06/03/22 19:10 IMPRESSION: 1. No acute renal findings, suspicious renal mass or obstructing calculi. 2. Enlarged prostate with abnormal bladder wall thickening. See discussion above. Cystoscopy should be considered. 3. Incidentally noted is large stool burden with probable minimal stercoral proctitis. Otherwise no small bowel obstruction or other acute bowel findings. 4. Somewhat distended gallbladder. See discussion above. 5. Coronary calcification and lower thoracic findings as above. 6. Hiatal/umbilical hernia and other nonacute findings as above. COMMENTS: Consistent with the [employer]'s Incidental Findings Committee white paper (J Am Alfredo Radiol 2018): Any incidental renal lesion less than 1 cm or classified as too small to characterize, or any incidental cystic renal lesion characterized as simple-appearing, is likely benign. No follow-up imaging is recommended for these lesions per consensus recommendations based on imaging criteria. Laboratory Results WBC 9.0 10^3/uL (4.0-10.0) 06/03/22 17:03 RBC 4.24 10^6/uL (4.1-5.3) 06/03/22 17:03 Hgb 9.6 g/dL (11.7-16.6) L 06/03/22 17:03 Hct 32.3 % (42.0-52.0) L 06/03/22 17:03 MCV 76.2 fl (80-94) L 06/03/22 17:03 MCH 22.6 pg (28.0-34.0) L 06/03/22 17:03 MCHC 29.7 g/dL (30.0-36.0) L 06/03/22 17:03 RDW 20.4 % (12.1-15.1) H 06/03/22 17:03 Plt Count 301 10^3/cmm (130-400) 06/03/22 17:03 MPV 9.6 fL (7.4-10.4) 06/03/22 17:03 Neut % (Auto) 81.8 % 06/03/22 17:03 Lymph % (Auto) 6.6 % 06/03/22 17:03 [place] % (Auto) 8.1 % 06/03/22 17:03 Eos % (Auto) 2.1 % 06/03/22 17:03 Baso % (Auto) 0.7 % 06/03/22 17:03 Neut # (Auto) 7.37 10^3/uL (1.8-7.7) 06/03/22 17:03 Lymph # (Auto) 0.6 10^3/uL (0.8-4.8) L 06/03/22 17:03 [place] # (Auto) 0.7 10^3/uL (0.2-0.9) 06/03/22 17:03 Eos # (Auto) 0.2 10^3/uL (0.0-0.8) 06/03/22 17:03 Baso # (Auto) 0.1 10^3/uL (0.0-0.1) 06/03/22 17:03 Nucleated RBC % (auto) 0 % 06/03/22 17:03 Nucleated RBCs # 0.0 /100WBC 06/03/22 17:03 Sodium 135 mmol/L (136-145) L 06/03/22 17:03 Potassium 4.1 mmol/L (3.5-5.1) 06/03/22 17:03 Chloride 104 mmol/L (98-107) 06/03/22 17:03 Carbon Dioxide 20 mmol/L (22-29) L 06/03/22 17:03 Anion Gap 15.1 (5-19) 06/03/22 17:03 BUN 31 mg/dL (8-23) H 06/03/22 17:03 Creatinine 1.2 mg/dL (0.7-1.2) 06/03/22 17:03 GFR Calculation Not Reportable 06/03/22 17:03 Glucose 118 mg/dL (65-115) H 06/03/22 17:03 Calculated Osmolality 288 mOsm/kg (285-295) 06/03/22 17:03 Calcium 7.9 mg/dL (8.5-10.5) L 06/03/22 17:03 Discharge Plan Discharge Patient Disposition: Admitted As Inpatient Admit Provider: Vin Loya Clinical Impression: Hematuria Condition: Stable Coding Level of Care Code ED Callisthenics Instructor for Chg Fwd Documented by User: Florinda Light MD 06/03/22 23:09 HPI - Male Genitourinary General: Chief complaint: ER Hold Stated complaint: BLOOD IN OSEI Time Seen by Provider: 06/03/22 16:27 [facility] ED PFSH: Medical History Aortic stenosis BPH w/o urinary obs/LUTS CHF (congestive heart failure) Coronary artery disease Diabetes mellitus Elevated PSA History of non-ST elevation myocardial infarction (NSTEMI) HTN (hypertension) Lower urinary tract symptoms (LUTS) Renal calculi Surgical History H/O hernia repair H/O lithotripsy S/P eye surgery S/P tonsillectomy Family History Father , 80 CAD (coronary artery disease) Hypertension Mother , 90 No problems noted. Social History Smoking and tobacco status: former smoker Quit status (tobacco): has quit using tobacco Year quit tobacco: 1990 - 1PPD x 7 Years Second hand smoke exposure: Yes Smoking risk assessment/counseling performed?: No Alcohol intake: never Lives independently: Yes Household members: spouse Marital status: Current occupational status: retired Current gender identity: Male Course Vital Signs: Vital signs: Vital Signs Temperature 97.5 F L 06/03/22 16:29 Pulse Rate 73 06/04/22 03:00 Respiratory Rate 20 H 06/04/22 03:00 Blood Pressure 146/88 06/04/22 02:30 Pulse Oximetry 97 06/04/22 05:13 Oxygen Delivery Me thod Room Air 06/04/22 05:13 MDM - Male Medical Decision Making Patient presents here with hematuria through his Osei catheter has had the Osei for 2 weeks for urinary retention we have flushed the catheter twice with large amount of fluid removed clots and got to clear up and's been bloody again after both times spoke to the urologist along with hospitalist will admit with continuous bowel irrigation at this time. Medical Records I reviewed the patient's medical records. Lab Data I reviewed the patient's lab results. 06/03/22 17:03 06/03/22 17:03 Radiology Impressions Abdomen/Pelvis CT 06/03/22 19:10 IMPRESSION: 1. No acute renal findings, suspicious renal mass or obstructing calculi. 2. Enlarged prostate with abnormal bladder wall thickening. See discussion above. Cystoscopy should be considered. 3. Incidentally noted is large stool burden with probable minimal stercoral proctitis. Otherwise no small bowel obstruction or other acute bowel findings. 4. Somewhat distended gallbladder. See discussion above. 5. Coronary calcification and lower thoracic findings as above. 6. Hiatal/umbilical hernia and other nonacute findings as above. COMMENTS: Consistent with the [employer]'s Incidental Findings Committee white paper (J Am Alfredo Radiol 2018): Any incidental renal lesion less than 1 cm or classified as too small to characterize, or any incidental cystic renal lesion characterized as simple-appearing, is likely benign. No follow-up imaging is recommended for these lesions per consensus recommendations based on imaging criteria. Laboratory Results WBC 9.0 10^3/uL (4.0-10.0) 06/03/22 17:03 RBC 4.24 10^6/uL (4.1-5.3) 06/03/22 17:03 Hgb 9.6 g/dL (11.7-16.6) L 06/03/22 17:03 Hct 32.3 % (42.0-52.0) L 06/03/22 17:03 MCV 76.2 fl (80-94) L 06/03/22 17:03 MCH 22.6 pg (28.0-34.0) L 06/03/22 17:03 MCHC 29.7 g/dL (30.0-36.0) L 06/03/22 17:03 RDW 20.4 % (12.1-15.1) H 06/03/22 17:03 Plt Count 301 10^3/cmm (130-400) 06/03/22 17:03 MPV 9.6 fL (7.4-10.4) 06/03/22 17:03 Neut % (Auto) 81.8 % 06/03/22 17:03 Lymph % (Auto) 6.6 % 06/03/22 17:03 [place] % (Auto) 8.1 % 06/03/22 17:03 Eos % (Auto) 2.1 % 06/03/22 17:03 Baso % (Auto) 0.7 % 06/03/22 17:03 Neut # (Auto) 7.37 10^3/uL (1.8-7.7) 06/03/22 17:03 Lymph # (Auto) 0.6 10^3/uL (0.8-4.8) L 06/03/22 17:03 [place] # (Auto) 0.7 10^3/uL (0.2-0.9) 06/03/22 17:03 Eos # (Auto) 0.2 10^3/uL (0.0-0.8) 06/03/22 17:03 Baso # (Auto) 0.1 10^3/uL (0.0-0.1) 06/03/22 17:03 Nucleated RBC % (auto) 0 % 06/03/22 17:03 Nucleated RBCs # 0.0 /100WBC 06/03/22 17:03 Sodium 135 mmol/L (136-145) L 06/03/22 17:03 Potassium 4.1 mmol/L (3.5-5.1) 06/03/22 17:03 Chloride 104 mmol/L (98-107) 06/03/22 17:03 Carbon Dioxide 20 mmol/L (22-29) L 06/03/22 17:03 Anion Gap 15.1 (5-19) 06/03/22 17:03 BUN 31 mg/dL (8-23) H 06/03/22 17:03 Creatinine 1.2 mg/dL (0.7-1.2) 06/03/22 17:03 GFR Calculation Not Reportable 06/03/22 17:03 Glucose 118 mg/dL (65-115) H 06/03/22 17:03 Calculated Osmolality 288 mOsm/kg (285-295) 06/03/22 17:03 Calcium 7.9 mg/dL (8.5-10.5) L 06/03/22 17:03 Discharge Plan Discharge Patient Disposition: Admitted As Inpatient Admit Provider: Vin Loya Clinical Impression: Hematuria Condition: Stable Coding Level of Care Code ED Callisthenics Instructor for Syd Witt
[2022-06-03 17:22] LABS: Basophils # 0.1 10^3/uL (0.0-0.1); Basophils % 0.7 %; Eosinophils # 0.2 10^3/uL (0.0-0.8); Eosinophils % 2.1 %; Hematocrit 32.3 % (42.0-52.0); Hemoglobin 9.6 g/dL (11.7-16.6); Lymphocytes # 0.6 10^3/uL (0.8-4.8); Lymphocytes % 6.6 %; Mean Corpuscular HGB Conc 29.7 g/dL (30.0-36.0); Mean Corpuscular Hemoglobin 22.6 pg (28.0-34.0); Mean Corpuscular Volume 76.2 fl (80-94); Mean Platelet Volume 9.6 fL (7.4-10.4); Monocytes # 0.7 10^3/uL (0.2-0.9); Monocytes % 8.1 %; Neutrophils # 7.37 10^3/uL (1.8-7.7); Neutrophils % 81.8 %; Nucleated Red Blood Cells % 0 %; Platelet Count 301 10^3/cmm (130-400); Red Blood Count 4.24 10^6/uL (4.1-5.3); Red Cell Distribution Width 20.4 % (12.1-15.1)
[2022-06-03 17:46] LABS: Anion Gap 15.1 (5-19); Blood Urea Nitrogen 31 mg/dL (8-23); Calcium 7.9 mg/dL (8.5-10.5); Carbon Dioxide 20 mmol/L (22-29); Chloride 104 mmol/L (98-107); Glucose 118 mg/dL (65-115); Osmolality Calculated 288 mOsm/kg (285-295); Potassium 4.1 mmol/L (3.5-5.1); Sodium 135 mmol/L (136-145)
--- NOTE | 2022-06-03 19:10 | CTR_ITS ---
PROCEDURE INFORMATION: Exam: CT Abdomen And Pelvis With Contrast Exam date and time: 06/03/2022 8:56 PM Age: 77 years old Clinical indication: Other: Hematuria TECHNIQUE: Imaging protocol: Computed tomography of the abdomen and pelvis with contrast. Radiation optimization: All CT scans at this facility use at least one of these dose optimization techniques: automated exposure control; mA and/or kV adjustment per patient size (includes targeted exams where dose is matched to clinical indication); or iterative reconstruction. Contrast material: OMNI 350; Contrast volume: 100 ml; Contrast route: INTRAVENOUS (IV); REPORTING DATA: Count of CT and Cardiac NM exams in prior 12 months: This patient has received [address] and 0 known cardiac nuclear medicine studies in the 12 months prior to the current study. COMPARISON: CT kidney stone [id number] 05/21/2022 6:07 PM RADIATION DOSE METRICS: Total DLP (mGy-cm): 813 FINDINGS: Lungs: Bibasilar linear scarring-atelectasis. Small airspace consolidation posterior right lung base may also represent compressive atelectasis versus developing pneumonia. Follow-up should be obtained. Pleural spaces: Trace bilateral pleural effusions, decreased since prior exam. Heart: [id number] 4 chamber cardiomegaly with coronary calcification. Diaphragm: Hiatal hernia measuring about 7 cm. Liver: Normal. No mass. Gallbladder and bile ducts: Gallbladder is somewhat distended which may be related to prolonged fasting versus cholestasis. No obvious imaging signs of acute cholecystitis or bile duct dilatation. Clinical correlation should be obtained. Sonographic follow-up may also be considered if clinically indicated. Pancreas: Normal. No ductal dilation. Spleen: Normal spleen size with multiple calcified granulomas. Adrenal glands: Heterogeneous thickening of the left adrenal measuring 2.8 x 1.7 cm with no significant change versus February 2001 CT and is most likely benign. Kidneys and ureters: No hydronephrosis. Bilateral simple renal cysts the largest measuring 4.9 cm on the right. Stomach and bowel: Large colorectal stool burden. Minimal rectal wall thickening may be related to stercoral proctitis. No other suspicious bowel wall thickening, pneumatosis or bowel obstruction. Appendix: No evidence of appendicitis. Intraperitoneal space: Unremarkable. No free air. No significant fluid collection. Vasculature: No abdominal aortic aneurysm. Lymph nodes: No enlarged lymph nodes. Urinary bladder: Nondistended bladder containing Goncalves balloon with diffuse nonspecific bladder wall thickening. This may represent cystitis and/or hypertrophy. Neoplasm can not be totally excluded. Markedly enlarged prostate measuring 6.5 x 5 cm cross-section. Craniocaudad dimension is ill-defined. Reproductive: See Urinary bladder finding. Bones/joints: Multilevel vertebral disc degeneration and endplate osteophytes. No acute osseous findings otherwise. Soft tissues: Small fat-containing umbilical hernia. CT/CT abdomen pelvis w con* [id number] IMPRESSION: 1. No acute renal findings, suspicious renal mass or obstructing calculi. 2. Enlarged prostate with abnormal bladder wall thickening. See discussion above. Cystoscopy should be considered. 3. Incidentally noted is large stool burden with probable minimal stercoral proctitis. Otherwise no small bowel obstruction or other acute bowel findings. 4. Somewhat distended gallbladder. See discussion above. 5. Coronary calcification and lower thoracic findings as above. 6. Hiatal/umbilical hernia and other nonacute findings as above. COMMENTS: Consistent with the [employer]'s Incidental Findings Committee white paper (J Am Alfredo Radiol 2018): Any incidental renal lesion less than 1 cm or classified as too small to characterize, or any incidental cystic renal lesion characterized as simple-appearing, is likely benign. No follow-up imaging is recommended for these lesions per consensus recommendations based on imaging criteria.
[2022-06-03] MEDS: iohexol 350 mg/mL 500 mL Btl (per mL) IV (21:00)
--- NOTE | 2022-06-03 21:49 | PC.NURSE ---
ATTEMPTED TO IRRIGATE OSEI CATHETER WITH NO RETURN. PHYSICIAN NOTIFIED AND INSTRUCTED NURSE TO REPLACE CATHETER WITH A LARGER SIZE. 20FR 30CC BALLOON CATHETER INSERTED. 1L INSTILLED INTO BLADDER TOTAL WITH APPROX 900ML RETURN. URINE AT THAT TIME IS PALE PINK.
[2022-06-04] VITALS (23 sets, daily range): BP systolic 108–162; BP diastolic 70–106; PULSE 73–117; RESP 16–29; TEMP 36.4–36.8; O2SAT 91–97; BMI 26.7
[2022-06-04] MEDS: cefTRIAXone 1,000 MG in sodium chloride 0.9% (plus) 50 ML 100 MG IV (00:25)
[2022-06-04 00:27] LABS: INR 1.18 (0.8-1.2)
--- NOTE | 2022-06-04 00:45 | PM.HP ---
Providers/Chief Complaint Admitting Physician: Vin Loya MD Primary Care Provider: Ny Elizabeth DO Chief Complaint: BLOOD IN OSEI History of Present Illness Vin Pena is a 77 year old male with a past medical history of atrial fibrillation not on anticoagulation due to anemia, hematuria, heart failure with preserved ejection fraction, hypertension, COPD, CKD, moderate pulm hypertension, history of microcytic anemia, history of aortic stenosis, recent admitted to [facility] for NSTEMI, placed on heparin drip, which had to be stopped due to hematuria, transferred to [place] for consideration of coronary angiography and TAVR, however could not be performed due to deconditioning, PAULETTE, eventually discharged home with Osei catheter in place due to enlarged prostate, with consideration of possible outpatient coronary angiogram based on his clinical progress. Who presents to [facility] with family due to concerns for hematuria, family tells me that he has been doing better since he got home, appetite improving, mobility improving, however this evening he developed significant hematuria, denies falling, denies pulling on Osei catheter, Osei catheter bag has shine blood, he is on aspirin, Plavix, not on any blood thinners for his A-fib, denies any abdominal pain, no flank pain Review of Systems Const: Denies: fever(s) Card: Denies: chest pain Resp: Denies: dyspnea GI: Denies: abdominal pain or nausea : Denies: flank pain Musc: Denies: back pain Medications/Allergies Home Medications Medication Instructions Recorded Confirmed Last Taken Type lansoprazole 30 mg capsule,delayed 30 mg PO QAM 04/12/19 05/18/22 Unknown History release metformin 500 mg tablet 500 mg PO BID 04/12/19 05/18/22 Unknown History furosemide 40 mg tablet (Lasix) 40 mg PO DAILY PRN Edema 05/18/22 05/18/22 05/18/22 History hydrocodone 5 mg-acetaminophen 325 1 tab PO TID PRN Pain 05/18/22 05/18/22 Unknown History mg tablet tamsulosin 0.4 mg capsule 0.4 mg PO BID 05/18/22 05/18/22 Unknown History aspirin 81 mg chewable tablet 06/04/22 06/04/22 Unknown History Allergies Allergy/AdvReac Type Severity Reaction Status Date / Time naproxen [From Naprosyn] AdvReac NA Verified 05/18/22 09:22 simvastatin [From Zocor] AdvReac NA Verified 05/18/22 09:22 PFSH Acute PFSH: Medical History Aortic stenosis BPH w/o urinary obs/LUTS CHF (congestive heart failure) Coronary artery disease Diabetes mellitus Elevated PSA History of non-ST elevation myocardial infarction (NSTEMI) HTN (hypertension) Lower urinary tract symptoms (LUTS) Renal calculi Surgical History H/O hernia repair H/O lithotripsy S/P eye surgery S/P tonsillectomy Family History Father , 80 CAD (coronary artery disease) Hypertension Mother , 90 No problems noted. Social History Smoking and tobacco status: former smoker Quit status (tobacco): has quit using tobacco Year quit tobacco: 1990 - PD x 7 Years Second hand smoke exposure: Yes Smoking risk assessment/counseling performed?: No Alcohol intake: never Lives independently: Yes Household members: spouse Marital status: Current occupational status: retired Current gender identity: Male Vitals/I&O/Wt Last Vital Signs Temp 97.5 F L 06/03/22 16:29 Pulse 153 H 06/03/22 21:30 Resp 23 H 06/03/22 19:30 BP 112/68 06/03/22 20:00 Pulse Ox 94 06/03/22 21:30 O2 Del Method Room Air 06/03/22 21:30 Weight last 48 hrs Weight 99.79 kg Physical Exam Const: COMMON NORMALS: no acute distress and patient oriented x3 HENMT: COMMON NORMALS: normocephalic HEAD & SCALP: normocephalic Eye: COMMON NORMALS: Equal, round and reactive pupils present and EOMs intact bilaterally Neck/C-Spine: COMMON NORMALS: no JVD Lymph: LYMPHATIC: no lymphadenopathy noted Resp: COMMON NORMALS: normal respiratory effort, No retractions, No use of accessory muscles and clear to auscultation bilaterally AUSCULTATION: clear to auscultation bilaterally Cardio: COMMON NORMALS: no JVD, regular rate, regular rhythm, S1 normal heart sound present and S2 normal heart sound present RATE: regular rate RHYTHM: regular rhythm HEART SOUNDS: S1 normal heart sound present and S2 normal heart sound present GI: COMMON NORMALS: Normal to inspection, nondistended, normoactive bowel sounds present, Soft to palpation and non-tender PALPATION: Yes Soft to palpation : COMMON NORMALS: Yes no CVA tenderness Extremity: COMMON NORMALS: no calf tenderness and no pedal edema Neuro: COMMON NORMALS: patient oriented x3, CN's II-XII intact bilaterally and moves all extremities Psych: COMMON NORMALS: mental status grossly normal Data 06/03/22 17:03 06/03/22 17:03 A&P Assessment and plan (1) Hematuria: (2) Chronic kidney disease: (3) Dyslipidemia: (4) Diabetes mellitus: (5) Severe aortic valve stenosis: (6) Atrial fibrillation: (7) COPD (chronic obstructive pulmonary disease): (8) CHF (congestive heart failure): Qualifiers: Heart failure type: diastolic Heart failure chronicity: chronic Qualified Code(s): I50.32 - Chronic diastolic (congestive) heart failure (9) HTN (hypertension): Qualifiers: Hypertension type: essential hypertension Qualified Code(s): I10 - Essential (primary) hypertension (10) BPH w/o urinary obs/LUTS: Plan Hematuria -History of hematuria on anticoagulation during last hospitalization -Hold aspirin, Plavix for now, will consider resuming in the afternoon based on clinical progress -CBI started -Urology consulted by ER, -We will keep n.p.o. just in case he needs a cystoscopy -Full code -SCDs for DVT prophylaxis History of NSTEMI -Did not have angiogram or TAVR -Plans on outpatient evaluation -No chest pain A-fib -Had a couple of elevated heart rates in the emergency room -Resume home medication -Not on anticoagulation due to anemia, hematuria Heart failure with preserved ejection fraction Pulm hypertension History of COPD History of CKD History of microcytic anemia Attestations Medical Necessity Statement*: Patient requires hospitalization, outpatient observation, for hematuria Diagnoses Hematuria R31.9 Chronic kidney disease N18.9 Dyslipidemia E78.5 Diabetes mellitus E11.9 Severe aortic valve stenosis I35.0 Atrial fibrillation I48.91 COPD (chronic obstructive pulmonary disease) J44.9 CHF (congestive heart failure) I50.32 Heart failure type: diastolic Heart failure chronicity: chronic HTN (hypertension) I10 Hypertension type: essential hypertension BPH w/o urinary obs/LUTS N40.0
[2022-06-04] MEDS: tamsulosin 0.4 mg Capsule PO ×2 (03:49→14:04)
[2022-06-04] MEDS: pantoprazole 40 mg SDV IVP (03:49)
[2022-06-04] MEDS: ondansetron 2 mg/ML SDV 2 mL 4 MG IVP (06:20)
[2022-06-04] MEDS: morphine 4 mg/mL SDV 1 mL 2 MG IVP (06:21)
--- NOTE | 2022-06-04 06:59 | P.CONIM_ITS ---
Providers/Reason For Consult Consulting Physician/Specialty*: Urology/[place] Reason for Consult*: Gross hematuria/retention Requesting Physician: Dr. Loya Attending Physician: Vin Loya MD Primary Care Provider: Ny Elizabeth DO History of Present Illness History of Present Illness Vin Pena is a 77 year old male admitted through the ED for clot urinary retention. Apparently had a catheter placed recently in [place] for urinary retention when he was being evaluated for severe cardiac issues. Was discharged with catheter in place and developed gross hematuria of unclear etiology. He had been on Plavix and aspirin for his cardiac status. In the emergency department his catheter was grossly bloody and not functioning well. Was changed to a large bore catheter with irrigation. Work-up: * CT scan: Catheter in appropriate position. Bladder wall was thickened. Bladder was decompressed. Looks like there might be some clot in the bladder. Could not rule out other etiologies. This was compared to a CT scan done earlier this month with essentially the same findings. Very large prostate demonstrated * Hemoglobin was 9.6 which was pretty stable for him based on review of recent labs in the chart. Creatinine 1.2 Other comorbidities include chronic kidney disease, diabetes mellitus, severe aortic valve stenosis, atrial fibrillation, CHF, COPD, hypertension. He is a high risk patient from medical comorbidities status. Summary of old records: I had seen him previously for history of elevated PSA and BPH/obstruction. First evaluated in July 2018 for LUTS consistent with BPH/obstruction and a PSA elevated at 8.0. Placed on TAMSULOSIN and FINASTERIDE for BPH Follow-up PSA decreased to 3.8 from 8.0 on the finasteride in 6 months. Con tinued medical therapy. His voiding dynamics were acceptable. Offered double dose TAMSULOSIN but he declined. No cystoscopy was performed but it was reviewed. At last follow-up on 10/11/2019 he was still quite symptomatic with slow flow both day and night, significant nocturia and no progressive improvement. He did agree at that time to increase his TAMSULOSIN to DOUBLE DOSE and was scheduled to follow-up in 6 months. He called and rescheduled to May 2020. He called and canceled that appointment stating that he was not feeling well. Has not been seen since that time. Currently has CBI running at a moderate pace with urine just light pink. Reviewed with the nursing staff who has cleared some clots at with manual irrigation. Encouraged her to do it again and irrigate enough to be able to say that there are no more clots in the bladder. No indication for surgical int ervention at this point. May require bedside flexible cystoscopy if continued active bleeding or question about residual clots. Focus on conservative management initially. Review of Systems Const: Reports: malaise; Denies: fever(s) or chills Eyes: Reports: other (Uses corrective lenses); Denies: change in vision ENMT: Denies: throat pain Card: Denies: chest pain or palpitations Resp: Denies: productive cough or wheezing GI: Reports: abdominal pain (Primarily suprapubic) : Reports: difficulty urinating and hematuria Musc: Denies: joint redness Neuro: Denies: Slurred speech present or difficulty communicating thoughts Psych: Denies: anxiety Abram/Lymph: Reports: easy bruising and easy bleeding All/Imm: Denies: acute wheezing Medications/Allergies Home Medications Medication Instructions Recorded Confirmed Last Taken Type lansoprazole 30 mg capsule,delayed 30 mg PO QAM 04/12/19 06/04/22 Unknown History release furosemide 40 mg tablet (Lasix) 40 mg PO DAILY PRN Edema 05/18/22 06/04/22 05/18/22 History aspirin 81 mg chewable tablet 81 mg PO DAILY 06/04/22 06/04/22 Unknown History clopidogrel 75 mg tablet 75 mg PO DAILY 06/04/22 06/04/22 Unknown History hydralazine 25 mg tablet 25 mg PO TID 06/04/22 06/04/22 Unknown History hyoscyamine sulfate 0.125 mg 0.125 mg PO Q4H PRN Spasms 06/04/22 06/04/22 Unknown History sublingual tablet isosorbide mononitrate 30 mg 30 mg PO DAILY 06/04/22 06/04/22 Unknown History tablet,extended release 24 hr lidocaine 5 % topical patch See Rx Instructions .Route .COMPLEX 06/04/22 06/04/22 Unknown History (Lidoderm) lorazepam 0.5 mg tablet 0.5 mg PO Q6H PRN Anxiety 06/04/22 06/04/22 Unknown History metoprolol tartrate 25 mg tablet 25 mg PO BID 06/04/22 06/04/22 Unknown History morphine concentrate 100 mg/5 mL 5 mg PO Q4H PRN Pain 06/04/22 06/04/22 Unknown History (20 mg/mL) oral solution ondansetron 8 mg disintegrating 8 mg PO Q8H PRN Nausea And Vomiting 06/04/22 06/04/22 Unknown History tablet potassium chloride 20 mEq 20 meq PO DAILY 06/04/22 06/04/22 Unknown History tablet,extended release primidone 50 mg tablet 50 mg PO BEDTIME 06/04/22 06/04/22 Unknown History sennosides 8.6 mg tablet (Senna 8.6 mg PO BID 06/04/22 06/04/22 Unknown History Lax) tamsulosin 0.4 mg capsule 0.4 mg PO BID 06/04/22 06/04/22 Unknown History Allergies Allergy/AdvReac Type Severity Reaction Status Date / Time naproxen [From Naprosyn] AdvReac NA Verified 05/18/22 09:22 simvastatin [From Zocor] AdvReac NA Verified 05/18/22 09:22 Current Medications Generic Name Dose Route Start Last Admin Trade Name Freq PRN Reason Stop Dose Admin Morphine Sulfate 2 mg 06/04/22 02:13 06/04/22 06:21 Morphine 4 Mg/Ml Sdv 1 Ml IVP 2 mg Q4H PRN Administration SEVERE PAIN Ondansetron HCl 4 mg 06/04/22 02:13 06/04/22 06:20 Ondansetron 2 Mg/Ml Sdv 2 Ml IVP 4 mg Q8H PRN Administration vomiting, or N/V if npo Pantoprazole Sodium 40 mg 06/04/22 02:13 06/04/22 03:49 Pantoprazole 40 Mg Sdv IVP 40 mg Q24H JOSE ANGEL Administration Tamsulosin HCl 0.4 mg 06/04/22 02:13 06/04/22 03:49 Tamsulosin 0.4 Mg Capsule PO 0.4 mg Q12H JOSE ANGEL Administration PFSH Acute PFSH: Medical History Aortic stenosis BPH w/o urinary obs/LUTS CHF (congestive heart failure) Coronary artery disease Diabetes mellitus Elevated PSA History of non-ST elevation myocardial infarction (NSTEMI) HTN (hypertension) Lower urinary tract symptoms (LUTS) Renal calculi Surgical History H/O hernia repair H/O lithotripsy S/P eye surgery S/P tonsillectomy Family History Father , 80 CAD (coronary artery disease) Hypertension Mother , 90 No problems noted. Social History Smoking and tobacco status: former smoker Quit status (tobacco): has quit using tobacco Year quit tobacco: 1990 - 1PPD x 7 Years Second hand smoke exposure: Yes Smoking risk assessment/counseling performed?: No Alcohol intake: never Substance/Drug Use: never Lives independently: Yes Household members: spouse Marital status: Current occupational status: retired Current gender identity: Male Vitals/I&O/Wt Last Vital Signs Temp 97.5 F L 06/03/22 16:29 Pulse 96 06/04/22 06:30 Resp 28 H 06/04/22 06:30 BP 128/78 06/04/22 03:30 Pulse Ox 95 06/04/22 06:30 O2 Del Method Room Air 06/04/22 05:13 06/03/22 06/03/22 06/04/22 14:59 22:59 06:59 Intake Total 50 / 50 Balance 50 / 50 Weight last 48 hrs Weight 220 lb Physical Exam Narrative: Alert, pleasant and cooperative throughout exam. No acute distress. No labored respiration. No audible wheezes Regular rhythm Abdomen is soft. Bladder does not feel distended. Nontender in the suprapubic area. No CVA tenderness Goncalves catheter in place with CBI running at a moderate pace urine is clear to very [id number]. Decreased range of motion of lower extremities. Data 06/03/22 17:03 06/03/22 17:03 A&P Assessment and plan (1) Clot retention of urine: Etiology unclear. Seems to be responding well to conservative management. Recommend continuing manual irrigation and CBI with option for intervention if fails to respond (2) Gross hematuria: Etiology unclear. Significant improvement since presentation (3) Elevated PSA: Previously mildly elevated 8 with >50% reduction with the addition of finasteride several years ago. Does not appear to be on finasteride now. (4) BPH w/o urinary obs/LUTS: Consult Attestations Medical Necessity Statement: See attending. Currently requiring CBI for management of gross hematuria with recent clot retention. Coding Level of Care Code Acute Code for Chg Fwd Diagnoses Clot retention of urine R33.8 Gross hematuria R31.0 Elevated PSA R97.20 BPH w/o urinary obs/LUTS N40.0
[2022-06-04 08:44] LABS: Glucose Point of Care 122 mg/dL (70-110)
--- NOTE | 2022-06-04 09:06 | PC.CHAP ---
Pastoral Care Encounter/Spiritual Assessment Type of Contact [] Declined kiln tender visit [] Patient/Family/Request visit [] Outpatient visit [] Follow-up visit [] Physician referral [] Code/Alert [x] Routine visit [] Staff referral [] Actively dying [] Patient sleeping [] Family support [] [] Out of room [] Palliative care [] [] Receiving care in room [] Pre-surgical visit [] Trauma [] Long length of stay [] ICU visit [] Other: Relational/Emotional Strength [x] Patient feels connected with others/family/visitors/staff [] Distress [] Loneliness/isolation [] Abandonment Spirituality of Patient [x] Person of Clarissa [] Attends Cheondoism of their Clarissa [x] Believes in Prayer [] Reads Bible or Yazdanism materials [] There are Spiritual issues to be addressed Counter Manager Interventions [x] Prayer [x] Active listening [x] Non-anxious presence [x] Spiritual/emotional support [] Crisis/trauma care [] Spiritual counseling [] Bereavement support [] Provided bereavement packet [] Provided Bible/devotional materials [] Provided toy/stuffed animal, coloring book to patient or family member [] Provided Communion [] Anointing/[place] [] Salvation [x] Completed spiritual assessment [] Other: Impact on Illness or Injury [] Angry [] Fearful [] Anxious [] Often cries [] Exhaustion [] Unable to work [] Unable to attend baptism [] Unable to walk/stand [] Unable to read [] Unable to drive [] Unable to eat/drink [] Unable to sleep [] Unable to be with family [] Patient intubated [] Other: Summary Pt had only been in the room a short time. Had arrived through the ER last evening. Is feeling better but currently in a great deal of pain. Pt's lives with a spouse who will be in later today to visit. . Time spent with patient 10m
[2022-06-04 11:32] LABS: Glucose Point of Care 129 mg/dL (70-110)
[2022-06-04] MEDS: finasteride 5 mg Tablet PO (12:14)
--- NOTE | 2022-06-04 15:31 | PC.OT ---
PER P.T.; PATIENT IS ON HOSPICE AND NO THERAPY REQUIRED AT THIS TIME.
--- NOTE | 2022-06-04 16:46 | PM.PN ---
Subjective Subjective: Overnight labs and H&P reviewed. Patient's is at bedside who confirms his hospice status. Patient is currently somnolent having recently received pain medication. Hematuria in bag noted, no clots. CBI running. Medications: Reviewed: Yes Vitals/I&O/Wt Last Vital Signs Temp 97.5 F L 06/04/22 12:00 Pulse 87 06/04/22 14:00 Resp 18 06/04/22 12:00 BP 155/91 06/04/22 12:00 Pulse Ox 94 06/04/22 12:00 O2 Del Method Room Air 06/04/22 12:00 06/04/22 06/04/22 06/04/22 06:59 14:59 22:59 Intake Total 50 / 50 240 / 240 Balance 50 / 50 240 / 240 Weight last 48 hrs Weight 89.403 kg Weight 99.79 kg Physical Exam Narrative: General: No acute distress, AO x3 HEENT: PERRLA, pupils bilaterally equal and reactive, pallors not present Chest: Normal vesicular breath sounds, no added sounds, equal good air entry bilaterally CVS: S1-S2 regular, no murmurs, no tachycardia, no gallops, no rubs Abdomen: Soft, nontender, no organomegaly, bowel sounds present Neuro: Complete exam not performed to allow for patient comfort. Data 06/03/22 17:03 06/03/22 17:03 A&P Assessment and plan (1) Hematuria: (2) Chronic kidney disease: (3) Dyslipidemia: (4) Diabetes mellitus: (5) Severe aortic valve stenosis: (6) Atrial fibrillation: (7) COPD (chronic obstructive pulmonary disease): (8) CHF (congestive heart failure): Qualifiers: Heart failure chronicity: chronic Heart failure type: diastolic Qualified Code(s): I50.32 - Chronic diastolic (congestive) heart failure (9) HTN (hypertension): Qualifiers: Hypertension type: essential hypertension Qualified Code(s): I10 - Essential (primary) hypertension (10) BPH w/o urinary obs/LUTS: Plan Hematuria Currently on CBI. No clots in bag. Dark red urine noted in bag. Appreciate urology consult. Continue CBI for now. History of NSTEMI on recent admission less than 15 days ago. Patient also has known severe aortic stenosis. On his last admission hospital course was complicated by development of PAULETTE, hematuria, patient was eventually transferred to [facility] in [place] per his request to be close to family. It appears angiogram was not performed due to risk of PAULETTE. Given his other multiple comorbidities and advanced aortic stenosis and heart failure, patient was transition to hospice. He came home this past Thursday and has been comfortable at home apart from this episode of hematuria. Confirmed goals of care with and those would be to continue hospice, keep patient as comfortable as possible. Plan to return home once hematuria resolves. Jaydon-nancy Had a couple of elevated heart rates in the emergency room Continue his home medications. Currently not on anticoagulation and will hold the same given his hospice status. Heart failure with preserved ejection fraction Pulm hypertension History of COPD History of CKD History of microcytic anemia Attestations Medical Necessity Statement*: continued admission for ongoing hematuria, need for CBI, change to inpatient Coding Level of Care Code Acute Code for Chg Fwd Diagnoses Hematuria R31.9 Chronic kidney disease N18.9 Dyslipidemia E78.5 Diabetes mellitus E11.9 Severe aortic valve stenosis I35.0 Atrial fibrillation I48.91 COPD (chronic obstructive pulmonary disease) J44.9 CHF (congestive heart failure) I50.32 Heart failure chronicity: chronic Heart failure type: diastolic HTN (hypertension) I10 Hypertension type: essential hypertension BPH w/o urinary obs/LUTS N40.0
[2022-06-04 17:19] LABS: Glucose Point of Care 148 mg/dL (70-110)
[2022-06-04] MEDS: insulin lispro 100 unit/1 mL SUBCUT (18:13)
[2022-06-04 20:47] LABS: Glucose Point of Care 117 mg/dL (70-110)
[2022-06-05] VITALS (15 sets, daily range): BP systolic 124–161; BP diastolic 70–82; PULSE 75–104; RESP 14–25; TEMP 36.6–36.9; O2SAT 93–98
[2022-06-05] MEDS: tamsulosin 0.4 mg Capsule PO ×2 (01:18→13:56)
[2022-06-05] MEDS: pantoprazole 40 mg SDV IVP (01:29)
[2022-06-05] MEDS: morphine 4 mg/mL SDV 1 mL 2 MG IVP ×3 (02:30→23:25)
--- NOTE | 2022-06-05 03:09 | PC.NURSE ---
PAIN/MANUAL IRRIGATION Pt had episode of pain with feeling of need to urinate and have a BM. Had noticed some small clots with last emptying of Goncalves but urine was not dark. Manual irrigation was performed with total of 500ml Sod Chloride easily with return of many small to tiny clots. Obtained immediate pain relief with irrigation. 2000ml bag of irrigating fluid ran wide open and urine return clear to slight pink and no further clots were noted at this time. Was medicated with Morphine IV for pain and is now resting quietly. Cont with CBI with freq monitoring
[2022-06-05 06:04] LABS: Glucose Point of Care 134 mg/dL (70-110)
[2022-06-05] MEDS: finasteride 5 mg Tablet PO (08:31)
[2022-06-05 11:18] LABS: Glucose Point of Care 266 mg/dL (70-110)
[2022-06-05] MEDS: insulin lispro 100 unit/1 mL SUBCUT (13:29)
--- NOTE | 2022-06-05 16:47 | P.PN_ITS ---
Subjective Subjective: Urology follow-up: Overall improving. Less manual irrigation required for clots. CBI rate is r unning fairly low with urine clear. Reviewed with nursing staff appropriate techniques of CBI management and manual irrigation as needed. Daughter was present today. We had a good discussion about the big scope of the history of gross hematuria. He is still under the influence of PLAVIX but I fully expect that he will require less irrigation moving forward as the impact of the Plavix diminishes. Reviewed potential bedside flexible cystoscopy. For now would recommend continuing conservative management with manual irrigation and CBI. Denied a history of gross hematuria prior to catheter placement. Daughter stated that he did have some sort of a lesion identified previously by Dr. Anna in [place] but had no surgery performed, only an outpatient cystoscopy Vitals/I&O/Wt Last Vital Signs Temp 97.8 F 06/05/22 12:00 Pulse 104 H 06/05/22 14:00 Resp 20 H 06/05/22 16:23 BP 124/73 06/05/22 12:00 Pulse Ox 98 06/05/22 12:00 O2 Del Method Room Air 06/05/22 12:00 06/05/22 06/05/22 06/05/22 06:59 14:59 22:59 Intake Total 120 / 1200 600 / 600 Balance 120 / 1200 600 / 600 Weight last 48 hrs Weight 197 lb 1.6 oz Physical Exam Narrative: Sleeping No acute distress. No labored respiration. Abdomen is soft. Urine was pink but cleared rapidly with slight increase in CBI flow Data 06/03/22 17:03 06/03/22 17:03 Attestations Medical Necessity Statement*: See attending Coding Level of Care Code Acute Code for Chg Fwd Diagnoses
[2022-06-05 17:44] LABS: Glucose Point of Care 129 mg/dL (70-110)
--- NOTE | 2022-06-05 18:30 | P.PN_ITS ---
Subjective Subjective: hematuria appears to be clearing overnight. Needed to be manually irrigated. Denies any pain currently. Medications: Reviewed: Yes Vitals/I&O/Wt Last Vital Signs Temp 97.9 F 06/05/22 16:00 Pulse 103 H 06/05/22 16:00 Resp 20 H 06/05/22 16:23 BP 140/81 06/05/22 16:00 Pulse Ox 98 06/05/22 16:00 O2 Del Method Room Air 06/05/22 12:00 06/05/22 06/05/22 06/05/22 06:59 14:59 22:59 Intake Total 120 / 1200 600 / 600 Balance 120 / 1200 600 / 600 Weight last 48 hrs Weight 89.403 kg Physical Exam Narrative: General: No acute distress, AO x3 HEENT: PERRLA, pupils bilaterally equal and reactive, pallors not present Chest: Normal vesicular breath sounds, no added sounds, equal good air entry bilaterally CVS: S1-S2 regular, no murmurs, no tachycardia, no gallops, no rubs Abdomen: Soft, nontender, no organomegaly, bowel sounds present Neuro: awake, oriented x 3 , no focal deficits Data 06/03/22 17:03 06/03/22 17:03 A&P Assessment and plan (1) Hematuria: (2) Chronic kidney disease: (3) Dyslipidemia: (4) Diabetes mellitus: (5) Severe aortic valve stenosis: (6) Atrial fibrillation: (7) COPD (chronic obstructive pulmonary disease): (8) CHF (congestive heart failure): Qualifiers: Heart failure type: diastolic Heart failure chronicity: chronic Qualified Code(s): I50.32 - Chronic diastolic (congestive) heart failure (9) HTN (hypertension): Qualifiers: Hypertension type: essential hypertension Qualified Code(s): I10 - Essential (primary) hypertension (10) BPH w/o urinary obs/LUTS: Plan Hematuria Currently on CBI. No clots in bag. Dark red urine noted in bag. Appreciate urology consult. Continue CBI for now. History of NSTEMI on recent admission less than 15 days ago. Patient also has known severe aortic stenosis. On his last admission hospital course was complicated by development of PAULETTE, hematuria, patient was eventually transferred to [facility] in [place] per his reque st to be close to family. It appears angiogram was not performed due to risk of PAULETTE. Given his other multiple comorbidities and advanced aortic stenosis and heart failure, patient was transition to hospice. He came home this past Thursday and has been comfortable at home apart from this episode of hematuria. Confirmed goals of care with and those would be to continue hospice, keep patient as comfortable as possible. Plan to return home once hematuria resolves. Jaydon-nancy Had a couple of elevated heart rates in the emergency room Continue his home medications. Currently not on anticoagulation and will hold the same given his hospice status. Heart failure with preserved ejection fraction Pulm hypertension History of COPD History of CKD History of microcytic anemia Attestations Medical Necessity Statement*: continued CBI for hematuria Coding Level of Care Code Acute Code for Chg Fwd Diagnoses Hematuria R31.9 Chronic kidney disease N18.9 Dyslipidemia E78.5 Diabetes mellitus E11.9 Severe aortic valve stenosis I35.0 Atrial fibrillation I48.91 COPD (chronic obstructive pulmonary disease) J44.9 CHF (congestive heart failure) I50.32 Heart failure type: diastolic Heart failure chronicity: chronic HTN (hypertension) I10 Hypertension type: essential hypertension BPH w/o urinary obs/LUTS N40.0
[2022-06-05 21:25] LABS: Glucose Point of Care 219 mg/dL (70-110)
[2022-06-06] VITALS (9 sets, daily range): BP systolic 119–150; BP diastolic 51–86; PULSE 69–85; RESP 16–21; TEMP 36.3–36.7; O2SAT 96–99
--- NOTE | 2022-06-06 00:57 | PC.NURSE ---
MANUAL IRRIGATION Pt suddenly had c/o burning pain Remoed numerous small clots wit manual irrigation. Irrigated until clear then resumed CBI. pain relieved with irrigation
[2022-06-06] MEDS: tamsulosin 0.4 mg Capsule PO ×2 (01:25→13:04)
[2022-06-06] MEDS: pantoprazole 40 mg SDV IVP (01:41)
[2022-06-06] MEDS: acetaminophen 325 mg Tablet 650 MG PO (04:16)
[2022-06-06 06:58] LABS: Glucose Point of Care 149 mg/dL (70-110)
[2022-06-06] MEDS: finasteride 5 mg Tablet PO (08:10)
[2022-06-06] MEDS: insulin lispro 100 unit/1 mL SUBCUT ×3 (08:11→18:05)
[2022-06-06 11:39] LABS: Glucose Point of Care 223 mg/dL (70-110)
[2022-06-06] MEDS: morphine 4 mg/mL SDV 1 mL 2 MG IVP (14:19)
--- NOTE | 2022-06-06 16:50 | P.PN_ITS ---
Subjective Subjective: Continues to have hematuria. No other overnight events acutely. Medications: Reviewed: Yes Vitals/I&O/Wt Last Vital Signs Temp 98 F 06/06/22 12:00 Pulse 80 06/06/22 12:00 Resp 16 06/06/22 12:00 BP 145/86 06/06/22 12:00 Pulse Ox 99 06/06/22 12:00 O2 Del Method Room Air 06/06/22 12:00 06/06/22 06/06/22 06/06/22 06:59 14:59 22:59 Intake Total 350 / 1070 600 / 600 Balance 350 / 1070 600 / 600 Physical Exam Narrative: General: No acute distress, AO x3 HEENT: PERRLA, pupils bilaterally equal and reactive, pallors not present Chest: Normal vesicular breath sounds, no added sounds, equal good air entry bilaterally CVS: S1-S2 regular, no murmurs, no tachycardia, no gallops, no rubs Abdomen: Soft, nontender, no organomegaly, bowel sounds present Neuro: awake, oriented x 3 , no focal deficits Data 06/07/22 04:35 06/07/22 04:35 A&P Assessment and plan (1) Hematuria: (2) Chronic kidney disease: (3) Dyslipidemia: (4) Diabetes mellitus: (5) Severe aortic valve stenosis: (6) Atrial fibrillation: (7) COPD (chronic obstructive pulmonary disease): (8) CHF (congestive heart failure): Qualifiers: Heart failure type: diastolic Heart failure chronicity: chronic Qualified Code(s): I50.32 - Chronic diastolic (congestive) heart failure (9) HTN (hypertension): Qualifiers: Hypertension type: essential hypertension Qualified Code(s): I10 - Essential (primary) hypertension (10) BPH w/o urinary obs/LUTS: Plan Hematuria Currently on CBI. Dark red urine noted in bag. Appreciate urology consult. History of NSTEMI on recent admission less than 15 days ago. Patient also has known severe aortic stenosis. On his last admission hospital course was complicated by development of PAULETTE, hematuria, patient was eventually transferred to [facility] in [place] per his req uest to be close to family. It appears angiogram was not performed due to risk of PAULETTE. Given his other multiple comorbidities and advanced aortic stenosis and heart failure, patient was transition to hospice. He came home this past Thursday and has been comfortable at home apart from this episode of hematuria. Confirmed goals of care with and those would be to continue hospice, keep patient as comfortable as possible. Plan to return home once hematuria resolves. Currently aspirin and Plavix are both on hold. Zane Had a couple of elevated heart rates in the emergency room Currently rate controlled Heart failure with preserved ejection fraction: Currently euvolemic Hospice care: Patient is on hospice at home. Continue morphine hypertension: Anti hypertensives on hold, BP maintained off medications History of COPD History of CKD History of microcytic anemia Attestations Medical Necessity Statement*: Continued need for CBI Coding Level of Care Code Acute Code for Chg Fwd Diagnoses Hematuria R31.9 Chronic kidney disease N18.9 Dyslipidemia E78.5 Diabetes mellitus E11.9 Severe aortic valve stenosis I35.0 Atrial fibrillation I48.91 COPD (chronic obstructive pulmonary disease) J44.9 CHF (congestive heart failure) I50.32 Heart failure type: diastolic Heart failure chronicity: chronic HTN (hypertension) I10 Hypertension type: essential hypertension BPH w/o urinary obs/LUTS N40.0
--- NOTE | 2022-06-06 18:04 | PM.PN ---
Subjective Subjective: Urology follow-up: Still requiring CBI. The overall rate is fairly low but when it is turned down his urine becomes red. Still requiring some manual irrigation with clots returned. Occasionally might have some slight occlusion of the catheter but it does not sound to be significant No symptoms of UTI. No other change in systemic symptoms. Denies chest pain or shortness of breath. No mental status changes. No nausea or vomiting Reviewed the possibility of cystoscopy at bedside soon if continues to require CBI. Also reviewed that he is still under the influence of the Plavix regarding platelet function. If scope was performed and a pathologic entity such as bladder cancer was identified and would not recommend TUR until he has had at least 5 to 7 days post Plavix. The value of the scope would be primarily to identify further clots to clear manually potentially change drainage options and irrigation schedules He expressed good understanding. Hopefully none of that will be necessary but we will be prepared for tomorrow or the next day if persistent Medications: Reviewed: Yes Vitals/I&O/Wt Last Vital Signs Temp 98 F 06/07/22 08:00 Pulse 76 06/07/22 08:00 Resp 19 H 06/07/22 08:00 BP 132/71 06/07/22 08:00 Pulse Ox 97 06/07/22 08:00 O2 Del Method Room Air 06/07/22 05:04 06/06/22 06/07/22 06/07/22 22:59 06:59 14:59 Intake Total 340 / 940 100 / 1040 260 / 260 Output Total 1750 / 1750 Balance -1410 / -810 100 / -710 260 / 260 Physical Exam Narrative: Alert and oriented, no acute distress Pleasant cooperative throughout exam Unlabored respiration. No audible wheezing Abdomen is soft, nontender, no palpable masses. Bladder is not distended. No CVA tenderness Lower extremity tenderness and decreased range of motion Urine is draining light pink with CBI continuing. No clots Data 06/07/22 04:35 06/07/22 04:35 A&P Assessment and plan (1) Gross hematuria: (2) Clot retention of urine: (3) BPH w/o urinary obs/LUTS: Plan See HPI. Possible flexible bedside cystoscopy tomorrow Attestations Medical Necessity Statement*: Still requiring CBI Coding Level of Care Code Acute Code for Chg Fwd Diagnoses Gross hematuria R31.0 Clot retention of urine R33.8 BPH w/o urinary obs/LUTS N40.0
[2022-06-06 18:29] LABS: Glucose Point of Care 212 mg/dL (70-110)
[2022-06-06 22:03] LABS: Glucose Point of Care 158 mg/dL (70-110)
[2022-06-07] VITALS (9 sets, daily range): BP systolic 105–148; BP diastolic 67–81; PULSE 67–86; RESP 16–19; TEMP 36.4–36.7; O2SAT 95–98
[2022-06-07] MEDS: pantoprazole 40 mg SDV IVP (01:38)
[2022-06-07] MEDS: morphine 4 mg/mL SDV 1 mL 2 MG IVP (02:20)
[2022-06-07] MEDS: tamsulosin 0.4 mg Capsule PO ×2 (02:24→17:05)
[2022-06-07 05:07] LABS: Basophils # 0.1 10^3/uL (0.0-0.1); Basophils % 0.7 %; Eosinophils # 0.3 10^3/uL (0.0-0.8); Eosinophils % 3.8 %; Hematocrit 27.3 % (42.0-52.0); Hemoglobin 8.2 g/dL (11.7-16.6); Lymphocytes # 0.6 10^3/uL (0.8-4.8); Lymphocytes % 7.2 %; Mean Corpuscular Hemoglobin 23.2 pg (28.0-34.0); Mean Corpuscular Volume 77.1 fl (80-94); Mean Platelet Volume 9.5 fL (7.4-10.4); Monocytes # 0.7 10^3/uL (0.2-0.9); Monocytes % 9.2 %; Neutrophils # 6.01 10^3/uL (1.8-7.7); Neutrophils % 78.4 %; Nucleated Red Blood Cells % 0 %; Platelet Count 276 10^3/cmm (130-400); Red Blood Count 3.54 10^6/uL (4.1-5.3); Red Cell Distribution Width 20.4 % (12.1-15.1); White Blood Count 7.7 10^3/uL (4.0-10.0)
[2022-06-07 05:38] LABS: Alanine Aminotransferase 11 U/L (0-41); Albumin Level 3.1 g/dL (3.5-5.2); Alkaline Phosphatase 59 U/L (40-130); Anion Gap 15.4 (5-19); Aspartate Amino Transferase 14 U/L (0-40); Blood Urea Nitrogen 29 mg/dL (8-23); Calcium 8.2 mg/dL (8.5-10.5); Carbon Dioxide 21 mmol/L (22-29); Chloride 106 mmol/L (98-107); Globulin 2.3 g/dL (1.3-4.6); Glucose 133 mg/dL (65-115); Osmolality Calculated 294 mOsm/kg (285-295); Potassium 4.4 mmol/L (3.5-5.1); Sodium 138 mmol/L (136-145); Total Bilirubin 0.3 mg/dL (0.15-1.2); Total Protein 5.4 g/dL (6.6-8.7)
[2022-06-07 06:38] LABS: Glucose Point of Care 136 mg/dL (70-110)
--- NOTE | 2022-06-07 09:54 | P.PN_ITS ---
Subjective Subjective: Urology follow-up: Hospital day #4 His last Plavix dose was 06/03/2022. Still requiring CBI. Not a high flow but enough to not be able to wean off. Manual irrigation periodically with small clots. No catheter occlusion. Based on the persistence of his bleeding I recommended that he undergo flexible bedside cystoscopy to look for any evidence of an actively bleeding pathologic features such as bladder cancer or residual clots. Reviewed the procedure with him. Informed consent was obtained. Reviewed with his daughter before as well Family was asking about his PSA. I did review his old chart and his last PSA in March 2019 was 3.8 with >50% reduction from 8.0 after initiation of FI NASTERIDE for BPH/obstruction. Considered low risk. Would not repeat his PSA at this point based on his multiple instrumentations but certainly could be repeated later. His overall risk though from prostate cancer would be considered very low given all of his other significant comorbidities. The architecture of the prostate was normal on cystoscopy. See below. No clear evidence of invasive process. Procedure: BEDSIDE FLEXIBLE CYSTOSCOPY, CLOT EVACUATION Prepped and draped in the usual sterile fashion. Anesthesia: 2% lidocaine jelly intraurethral instillation. After adequate level of anesthesia was obtained the flexible cystoscope was advanced under direct vision into the urethra and into the bladder. The urethra appeared normal. His prostate was slightly friable but it was not large He had approximately 30 to 40 cc of old clot in the bladder and it was irrigated out completely. The bladder was carefully inspected. There were some mild inflammatory changes and some mild mucosal oozing but no significant bleeding pathology. No evidence of bladder cancer. Goncalves catheter was placed. At 20 [address] Couvelaire three-way catheter placed without difficulty and good drainage confirmed. 30 cc placed in the balloon. Manual irrigation confirmed catheter function. CBI was initiated and tapered back. He tolerated procedure well without complications and was turned back over nursing staff for routine floor care. Reviewed the findings with the patient and his daughter. Recommendations: * Maintain CBI and continue manual irrigation as needed * Goncalves expected over the next day or 2 the generalized oozing will decline as the Plavix effect wears off. At that point I will plan on removing the catheter with a voiding trial 6 bottle void etc. Vitals/I&O/Wt Last Vital Signs Temp 98 F 06/07/22 08:00 Pulse 76 06/07/22 08:00 Resp 19 H 06/07/22 08:00 BP 132/71 06/07/22 08:00 Pulse Ox 97 06/07/22 08:00 O2 Del Method Room Air 06/07/22 05:04 06/06/22 06/07/22 06/07/22 22:59 06:59 14:59 Intake Total 340 / 940 100 / 1040 Output Total 1750 / 1750 Balance -1410 / -810 100 / -710 Physical Exam Narrative: Alert and oriented. No acute distress. Was complaining of some discomfort in his lower extremities HEENT atraumatic normocephalic Good range of motion of neck Unlabored respiration. No audible wheezes Abdomen is soft. Nontender. No palpable masses or organomegaly appreciated. Genitourinary: Normal phallus. Scrotum grossly normal. No meatal discharge. Decreased range of motion of lower extremities No severe edema Data 06/07/22 04:35 06/07/22 04:35 A&P Assessment and plan (1) Gross hematuria: Ongoing. Not severe. Managing well with CBI and manual irrigation Hematuria catheter placed which should help facilitate manual irrigation. (2) Clot retention of urine: See above (3) BPH w/o urinary obs/LUTS: On maximal medical therapy with FINASTERIDE 5 mg daily and TAMSULOSIN 0.4 mg daily (4) CHF (congestive heart failure): Qualifiers: Heart failure type: diastolic Heart failure chronicity: chronic Qualified Code(s): I50.32 - Chronic diastolic (congestive) heart failure Plan 1. Continue CBI and manual irrigations. I expect that this will not be required much longer since he is now 4 days post his last dose of Plavix 2. Once he is successfully weaned off of CBI we can do a voiding trial 6 bottle void etc. 3. Continue maximal medical therapy for BPH Attestations Medical Necessity Statement*: See attending. He is requiring CBI still. See above Coding Level of Care Code Acute Code for Chg Fwd Diagnoses Gross hematuria R31.0 Clot retention of urine R33.8 BPH w/o urinary obs/LUTS N40.0 CHF (congestive heart failure) I50.32 Heart failure type: diastolic Heart failure chronicity: chronic
[2022-06-07 12:01] LABS: Glucose Point of Care 255 mg/dL (70-110)
[2022-06-07] MEDS: finasteride 5 mg Tablet PO (12:22)
[2022-06-07] MEDS: insulin lispro 100 unit/1 mL SUBCUT (12:22)
--- NOTE | 2022-06-07 15:57 | PC.SOCIAL ---
Pg 2 IMM Explained to pt Pg 2 IMM. No questions voiced. Provided pt a copy. Initialed, dated, & timed a copy & placed in chart.
--- NOTE | 2022-06-07 16:57 | PM.PN ---
Subjective Subjective: Patient underwent bedside flexible cystoscopy and clot evacuation. He had approximately 30 to 40 cc of old clot in the bladder which was irrigated out completely. There was some mild inflammatory changes and mild mucosal oozing but no significant bleeding. No evidence of bladder cancer was found. CBI was reinitiated and manual irrigation was continued. Currently has hematuria. Medications: Reviewed: Yes Vitals/I&O/Wt Last Vital Signs Temp 98.1 F 06/07/22 12:00 Pulse 81 06/07/22 15:59 Resp 17 06/07/22 15:59 BP 142/81 06/07/22 15:59 Pulse Ox 98 06/07/22 15:59 O2 Del Method Room Air 06/07/22 05:04 06/07/22 06/07/22 06/07/22 06:59 14:59 22:59 Intake Total 100 / 1040 510 / 510 Balance 100 / -710 510 / 510 Physical Exam Narrative: General: No acute distress, AO x3 HEENT: PERRLA, pupils bilaterally equal and reactive, pallors not present Chest: Normal vesicular breath sounds, no added sounds, equal good air entry bilaterally CVS: S1-S2 regular, no murmurs, no tachycardia, no gallops, no rubs Abdomen: Soft, nontender, no organomegaly, bowel sounds present Neuro: awake, oriented x 3 , no focal deficits Data 06/07/22 04:35 06/07/22 04:35 A&P Assessment and plan (1) Hematuria: (2) Chronic kidney disease: (3) Dyslipidemia: (4) Diabetes mellitus: (5) Severe aortic valve stenosis: (6) Atrial fibrillation: (7) COPD (chronic obstructive pulmonary disease): (8) CHF (congestive heart failure): Qualifiers: Heart failure type: diastolic Heart failure chronicity: chronic Qualified Code(s): I50.32 - Chronic diastolic (congestive) heart failure (9) HTN (hypertension): Qualifiers: Hypertension type: essential hypertension Qualified Code(s): I10 - Essential (primary) hypertension (10) BPH w/o urinary obs/LUTS: Plan Hematuria Currently on CBI. Dark red urine noted in bag. Appreciate urology consult. Status post bedside clot evacuation today. History of NSTEMI on recent admission less than 15 days ago. Patient also has known severe aortic stenosis. On his last admission hospital course was complicated by development of PAULETTE, hematuria, patient was eventually transferred to [facility] in [place] per his request to be close to family. It appears angiogram was not performed due to risk of PAULETTE. Given his other multiple comorbidities and advanced aortic stenosis and heart failure, patient was transition to hospice. He came home this past Thursday and has been comfortable at home apart from this episode of hematuria. Confirmed goals of care with and those would be to continue hospice, keep patient as comfortable as possible. Plan to return home once hematuria resolves. Currently aspirin and Plavix are both on hold. A-nancy Had a couple of elevated heart rates in the emergency room Currently rate controlled Heart failure with preserved ejection fraction: Currently euvolemic Hospice care: Patient is on hospice at home. Continue morphine hypertension: Anti hypertensives on hold, BP maintained off medications History of COPD History of CKD History of microcytic anemia Attestations Medical Necessity Statement*: Ongoing need for CBI Coding Level of Care Code Acute Code for g Fwd Diagnoses Hematuria R31.9 Chronic kidney disease N18.9 Dyslipidemia E78.5 Diabetes mellitus E11.9 Severe aortic valve stenosis I35.0 Atrial fibrillation I48.91 COPD (chronic obstructive pulmonary disease) J44.9 CHF (congestive heart failure) I50.32 Heart failure type: diastolic Heart failure chronicity: chronic HTN (hypertension) I10 Hypertension type: essential hypertension BPH w/o urinary obs/LUTS N40.0
[2022-06-07 17:21] LABS: Glucose Point of Care 102 mg/dL (70-110)
[2022-06-07 20:45] LABS: Glucose Point of Care 193 mg/dL (70-110)
[2022-06-07] MEDS: acetaminophen 325 mg Tablet 650 MG PO (20:46)
[2022-06-08] VITALS (9 sets, daily range): BP systolic 100–177; BP diastolic 63–95; PULSE 67–113; RESP 16–21; TEMP 36.3–37.1; O2SAT 92–98
--- NOTE | 2022-06-08 02:21 | PC.NURSE ---
Patient vonering help from room. Patient tells nurse I need to get this between my legs out referring to his catheter. Attempted to provide education and redirection, patient not comprehending education. Patient continues yelling and becoming agitated. physician notified. Order for Ativan given as shown in MAR.
[2022-06-08] MEDS: pantoprazole 40 mg SDV IVP (02:44)
[2022-06-08] MEDS: LORazepam 2 mg/mL INJ 1 mL 1 MG IM (02:44)
--- NOTE | 2022-06-08 03:35 | PC.NURSE ---
Patient continues yelling out and trying to pull out his catheter. Provider notified. Sharandol ordered as seen on APR.
[2022-06-08] MEDS: haloperidol inj 5 mg/mL INJ 1 mL 1 MG IM (03:56)
[2022-06-08 07:18] LABS: Glucose Point of Care 203 mg/dL (70-110)
--- NOTE | 2022-06-08 11:14 | PM.PN ---
Subjective Subjective: Urology follow-up: Had a lot of confusion last night. Pulled on his catheter a few times but catheter still functioning well. CBI still required but at lower flow. No change in exam except for some confusion. Urine is light pink. Recommendations: If tomorrow his urine looks basically the same I will plan on doing a voiding trial. At that point he will be 6 days post last dose of Plavix. Cystoscopy yesterday showed no significant pathology but some rather diffuse oozing that appeared to be more inflammatory. Vitals/I&O/Wt Last Vital Signs Temp 97.5 F L 06/08/22 07:38 Pulse 113 H 06/08/22 07:38 Resp 20 H 06/08/22 07:38 BP 163/95 06/08/22 07:38 Pulse Ox 95 06/08/22 07:38 O2 Del Method Room Air 06/08/22 04:00 06/07/22 06/08/22 06/08/22 22:59 06:59 14:59 Intake Total 600 / 1110 480 / 480 Output Total 950 / 950 2700 / 2700 Balance -350 / 160 -2220 / -2220 Physical Exam Narrative: Alert and responsive. He does appear to be more confused than yesterday. Pleasant cooperative throughout exam Unlabored respiration without audible wheezing Abdomen is soft, nontender. Bladder is not distended. Mild agitation. Urine is draining light pink with CBI continuing. No clots Data 06/07/22 04:35 06/07/22 04:35 A&P Assessment and plan (1) Gross hematuria: Still having some oozing. Approaching the end of the impact of Plavix on his platelet function. (2) Clot retention of urine: Clots removed yesterday with manual irrigation and cystoscopy (3) BPH w/o urinary obs/LUTS: On maximal medical therapy Plan Unless increased bleeding, we will plan on voiding trial tomorrow. Attestations Medical Necessity Statement*: Still requiring CBI. Coding Level of Care Code Acute Code for [facility] Fwd Diagnoses Gross hematuria R31.0 Clot retention of urine R33.8 BPH w/o urinary obs/LUTS N40.0
[2022-06-08 12:05] LABS: Glucose Point of Care 147 mg/dL (70-110)
[2022-06-08] MEDS: finasteride 5 mg Tablet PO (12:29)
[2022-06-08] MEDS: acetaminophen 325 mg Tablet 650 MG PO ×2 (12:29→20:47)
[2022-06-08 16:21] LABS: Glucose Point of Care 245 mg/dL (70-110)
[2022-06-08] MEDS: insulin lispro 100 unit/1 mL SUBCUT (17:13)
[2022-06-08] MEDS: tamsulosin 0.4 mg Capsule PO (17:14)
--- NOTE | 2022-06-08 18:51 | P.PN_ITS ---
Subjective Subjective: Patient had episode of confusion yesterday for which she needed to be given Haldol. His morphine had been discontinued due to increased somnolence. However given that his goals of care are overall with that of hospice, we will go ahead and resume morphine for patient comfort. Continues to have hematuria. Medications: Reviewed: Yes Vitals/I&O/Wt Last Vital Signs Temp 98.8 F 06/08/22 15:40 Pulse 84 06/08/22 15:40 Resp 18 06/08/22 15:40 BP 106/74 06/08/22 15:40 Pulse Ox 97 06/08/22 15:40 O2 Del Method Room Air 06/08/22 11:51 06/08/22 06/08/22 06/08/22 06:59 14:59 22:59 Intake Total 720 / 720 Output Total 2700 / 2700 900 / 3600 Balance -1979 / -1979 - / -2880 Physical Exam Narrative: General: No acute distress, AO x3 HEENT: PERRLA, pupils bilaterally equal and reactive, pallors not present Chest: Normal vesicular breath sounds, no added sounds, equal good air entry bilaterally CVS: S1-S2 regular, no murmurs, no tachycardia, no gallops, no rubs Abdomen: Soft, nontender, no organomegaly, bowel sounds present Neuro: awake, oriented x 3 , no focal deficits Data 06/07/22 04:35 06/07/22 04:35 A&P Assessment and plan (1) Hematuria: (2) Chronic kidney disease: (3) Dyslipidemia: (4) Diabetes mellitus: (5) Severe aortic valve stenosis: (6) Atrial fibrillation: (7) COPD (chronic obstructive pulmonary disease): (8) CHF (congestive heart failure): Qualifiers: Heart failure type: diastolic Heart failure chronicity: chronic Qualified Code(s): I50.32 - Chronic diastolic (congestive) heart failure (9) HTN (hypertension): Qualifiers: Hypertension type: essential hypertension Qualified Code(s): I10 - Essential (primary) hypertension (10) BPH w/o urinary obs/LUTS: Plan Hematuria Currently on CBI. Dark red urine noted in bag. Appreciate urology consult. Status post bedside clot evacuation yesterday Continue CBI for now. History of NSTEMI on recent admission less than 15 days ago. Patient also has known severe aortic stenosis. On his last admission hospital course was complicated by development of PAULETTE, hematuria, patient was eventually transferred to [facility] in [place] per his request to be close to family. It appears angiogram was not performed due to risk of PAULETTE. Given his other multiple comorbidities and advanced aortic stenosis and heart failure, patient was transition to hospice. He came home this past Thursday and has been comfortable at home apart from this episode of hematuria. Confirmed goals of care with and those would be to continue hospice, keep patient as comfortable as possible. Plan to return home once hematuria resolves. Currently aspirin and Plavix are both on hold. Discussed extensively with that weighing the risk benefit assessment and patient's overall goals of hospice, would be appropriate to discontinue aspirin and Plavix for now A-fib Had a couple of elevated heart rates in the emergency room Continue metoprolol 25 mg p.o. every 12 hours Currently not on anticoagulation and will hold the same given his hospice status. Heart failure with preserved ejection fraction: Currently euvolemic Hospice care: Patient is on hospice at home. Overnight had episode of agitation for which Haldol was added. Morphine was discontinued because he was too somnolent. We will go ahead and resume the morphine. We will additionally resume his home medications Hyos of mine, p.o. morphine, lorazepam and primidone as overall goals are to keep patient comfortable while managing his hematuria. D/c orders for narcan hypertension: Anti hypertensives on hold, BP maintained off medications History of COPD History of CKD History of microcytic anemia Attestations Medical Necessity Statement*: ongoing hematuria, needs continued CBI Coding Level of Care Code Acute Code for Chg Fwd Diagnoses Hematuria R31.9 Chronic kidney disease N18.9 Dyslipidemia E78.5 Diabetes mellitus E11.9 Severe aortic valve stenosis I35.0 Atrial fibrillation I48.91 COPD (chronic obstructive pulmonary disease) J44.9 CHF (congestive heart failure) I50.32 Heart failure type: diastolic Heart failure chronicity: chronic HTN (hypertension) I10 Hypertension type: essential hypertension BPH w/o urinary obs/LUTS N40.0
[2022-06-08] MEDS: morphine 4 mg/mL SDV 1 mL 2 MG IVP ×2 (19:22→23:27)
[2022-06-08] MEDS: primidone 50 mg Tablet PO (20:47)
[2022-06-08] MEDS: lidocaine 5% Patch TRANSDERMA (20:47)
[2022-06-08 21:13] LABS: Glucose Point of Care 141 mg/dL (70-110)
[2022-06-09] VITALS (8 sets, daily range): BP systolic 106–124; BP diastolic 56–79; PULSE 69–85; RESP 15–17; TEMP 36.3–36.8; O2SAT 95–98
[2022-06-09] MEDS: pantoprazole 40 mg SDV IVP (01:15)
[2022-06-09] MEDS: morphine 4 mg/mL SDV 1 mL 2 MG IVP ×3 (04:52→22:30)
[2022-06-09] MEDS: tamsulosin 0.4 mg Capsule PO ×3 (05:00→17:01)
[2022-06-09 06:26] LABS: Glucose Point of Care 166 mg/dL (70-110)
[2022-06-09] MEDS: isosorbide mononitrate ER 30 mg Tablet PO (09:59)
[2022-06-09] MEDS: metoprolol tartrate 25 mg Tablet PO ×2 (10:00→17:00)
[2022-06-09] MEDS: sennosides 8.6 mg Tablet PO ×2 (10:00→17:00)
[2022-06-09] MEDS: finasteride 5 mg Tablet PO (10:00)
[2022-06-09] MEDS: insulin lispro 100 unit/1 mL SUBCUT ×2 (10:01→12:24)
[2022-06-09 11:18] LABS: Glucose Point of Care 259 mg/dL (70-110)
--- NOTE | 2022-06-09 11:24 | PM.PN ---
Subjective Subjective: Urology follow-up: Urine continues to clear. Much better today than it was yesterday with very light CBI running. No manual irrigation required I reviewed with him that it would be good to go ahead and attempt a voiding trial while he was in the hospital. It appears that the effect of Plavix as substantially reduced. Recommendations: 1. DC Goncalves 2. 6 bottle void 3. PVR bladder scans frequently to confirm adequate emptying 4. In and out catheterization as needed Vitals/I&O/Wt Last Vital Signs Temp 98.0 F 06/09/22 08:00 Pulse 76 06/09/22 08:00 Resp 17 06/09/22 08:00 BP 123/79 06/09/22 08:00 Pulse Ox 98 06/09/22 08:00 O2 Del Method Room Air 06/09/22 08:00 06/08/22 06/09/22 06/09/22 22:59 06:59 14:59 Intake Total 1620 / 2340 240 / 240 Output Total 1650 / 4350 Balance -1650 / -3630 1620 / -2009 240 / 240 Physical Exam Narrative: Alert and responsive. He does appear to be more confused than yesterday. Pleasant cooperative throughout exam Unlabored respiration without audible wheezing Abdomen is soft, nontender. Bladder is not distended. Appears more lucid today. Urine is draining l clear with minimal CBI. Data 06/07/22 04:35 06/07/22 04:35 A&P Assessment and plan (1) Gross hematuria: (2) Clot retention of urine: Plan DC Goncalves 6 bottle void PVR bladder scans and in and out cath as needed. Continue maximal medical therapy for BPH/obstruction (TAMSULOSIN 0.4 mg twice daily and FINASTERIDE 5 mg daily) Attestations Medical Necessity Statement*: See attending Coding Level of Care Code Acute Code for g Fwd Diagnoses Gross hematuria R31.0 Clot retention of urine R33.8
--- NOTE | 2022-06-09 16:25 | P.PN_ITS ---
Subjective Subjective: Hematuria is improving, Goncalves catheter has been discontinued, voiding trial. Medications: Reviewed: Yes Medication Review Details: Generic Name Dose Route Start Last Admin Trade Name Freq PRN Reason Stop Dose Admin Acetaminophen 650 mg 06/04/22 02:13 06/08/22 20:47 Acetaminophen 32 5 Mg Tablet PO 650 mg Q6H PRN Administration Mild/Mod Pain Or Temp >/= 101 Finasteride 5 mg 06/04/22 11:10 06/09/22 10:00 Finasteride 5 Mg Tablet PO 5 mg DAILY JOSE ANGEL Administration Haloperidol Lactat e 1 mg 06/08/22 03:35 06/08/22 03:56 Haloperidol Inj 5 Mg/Ml Inj 1 Ml IM 1 mg ONCE PRN Administration AGITATION Insulin Human Lisp ro 0 unit 06/04/22 08:00 06/09/22 12:24 Insulin Lispro 1 00 Unit/1 Ml SUBCUT 6 unit TIDWM JOSE ANGEL Administration Protocol Isosorbide Mononit rate 30 mg 06/09/22 09:00 06/09/22 09:59 Isosorbide [place] itrate Er 30 Mg Ta blet PO 30 mg DAILY JOSE ANGEL Administration Lidocaine 0 patch 06/08/22 21:00 06/08/22 20:47 Lidocaine 5% Pat ch TRANSDERMA 1 patch .COMPLEX JOSE ANGEL Administration Metoprolol Tartrat e 25 mg 06/09/22 09:00 06/09/22 10:00 Metoprolol Tartr ate 25 Mg Tablet PO 25 mg BID JOSE ANGEL Administration Morphine Sulfate 2 mg 06/08/22 17:25 06/09/22 04:52 Morphine 4 Mg/Ml Sdv 1 Ml IVP 2 mg Q4H PRN Administration SEVERE PAIN Ondansetron HCl 4 mg 06/04/22 02:13 06/04/22 06:20 Ondansetron 2 Mg /Ml Sdv 2 Ml IVP 4 mg Q8H PRN Administration vomiting, or N/V if npo Pantoprazole Sodiu m 40 mg 06/04/22 02:13 06/09/22 01:15 Pantoprazole 40 Mg Sdv IVP 40 mg Q24H JOSE ANGEL Administration Primidone 50 mg 06/08/22 21:00 06/08/22 20:47 Primidone 50 Mg Tablet PO 50 mg BEDTIME JOSE ANGEL Administration Senna 8.6 mg 06/09/22 09:00 06/09/22 10:00 Sennosides 8.6 M g Tablet PO 8.6 mg BID JOSE ANGEL Administration Tamsulosin HCl 0.4 mg 06/04/22 02:13 06/09/22 05:00 Tamsulosin 0.4 M g Capsule PO 0.4 mg Q12H JOSE ANGEL Administration Tamsulosin HCl 0.4 mg 06/09/22 09:00 06/09/22 10:00 Tamsulosin 0.4 M g Capsule PO Not Given BID [facility] Vitals/I&O/Wt Last Vital Signs Temp 97.3 F L 06/09/22 12:00 Pulse 69 06/09/22 12:00 Resp 15 06/09/22 12:00 BP 107/56 06/09/22 12:00 Pulse Ox 98 06/09/22 12:00 O2 Del Method Room Air 06/09/22 12:00 06/09/22 06/09/22 06/09/22 06:59 14:59 22:59 Intake Total 1620 / 2340 480 / 480 Balance 162 / 480 / 480 Physical Exam HENMT: COMMON NORMALS: normocephalic and atraumatic HEAD & SCALP: normo cephalic and atraumatic Resp: COMMON NORMALS: clear to auscultation bilaterally EFFORT & INSPECTION: Yes symmetric chest movement AUSCULTATION: clear to auscultation bilaterally Cardio: COMMON NORMALS: regular rate, regular rhythm, S1 normal heart sound present, S2 normal heart sound present, No gallops present (Cardio), No murmurs present (Cardio), No rub (Cardio) and Peripheral pulses 2+ throughout RATE: r egular rate RHYTHM: regular rhythm HEART SOUNDS: S1 normal heart sound present and S2 normal heart sound present PERIPHERAL PULSES: Peripheral pulses 2+ throughout GI: COMMON NORMALS: Normal to inspection, nondistended, normoactive bowel sounds present, Soft to palpation, non-tender, No hepatosplenomegaly present and no masses AUSCULTATION: Yes normoactive bowel sounds PALPATION: Yes Soft to palpation and Yes No hepatosplenomegaly present RECTAL EXAM: Yes deferred Extremity: COMMON NORMALS: no clubbing, cyanosis or edema and no pedal edema Data 06/07/22 04:35 06/07/22 04:35 A&P Assessment and plan (1) Hematuria: (2) Chronic kidney disease: (3) Dyslipidemia: (4) Diabetes mellitus: (5) Severe aortic valve stenosis: (6) Atrial fibrillation: (7) COPD (chronic obstructive pulmonary disease): (8) CHF (congestive heart failure): Qualifiers: Heart failure type: diastolic Heart failure chronicity: chronic Qualified Code(s): I50.32 - Chronic diastolic (congestive) heart failure (9) HTN (hypertension): Qualifiers: Hypertension type: essential hypertension Qualified Code(s): I10 - Essential (primary) hypertension (10) BPH w/o urinary obs/LUTS: Plan Hematuria Currently on CBI. Dark red urine noted in bag. Appreciate urology consult. History of NSTEMI on recent admission less than 15 days ago. Patient also has known severe aortic stenosis. On his last admission hospital course was complicated by development of PAULETTE, hematuria, patient was eventually transferred to [facility] in [place] per his request to be close to family. It appears angiogram was not performed due to risk of PAULETTE. Given his other multiple comorbidities and advanced aortic stenosis and heart failure, patient was transition to hospice. He came home this past Thursday and has been comfortable at home apart from this episode of hematuria. Confirmed goals of care with and those would be to continue hospice, keep patient as comfortable as possible. Plan to return home once hematuria resolves. Currently aspirin and Plavix are both on hold. A-nancy Had a couple of elevated heart rates in the emergency room Currently rate controlled Heart failure with preserved ejection fraction: Currently euvolemic Hospice care: Patient is on hospice at home. Continue morphine hypertension: Anti hypertensives on hold, BP maintained off medications History of COPD History of CKD History of microcytic anemia Attestations Medical Necessity Statement*: Needs to be in hospital for management of hematuria. Coding Level of Care Code 83093 Diagnoses Hematuria R31.9 Chronic kidney disease N18.9 Dyslipidemia E78.5 Diabetes mellitus E11.9 Severe aortic valve stenosis I35.0 Atrial fibrillation I48.91 COPD (chronic obstructive pulmonary disease) J44.9 CHF (congestive heart failure) I50.32 Heart failure type: diastolic Heart failure chronicity: chronic HTN (hypertension) I10 Hypertension type: essential hypertension BPH w/o urinary obs/LUTS N40.0
[2022-06-09 16:32] LABS: Glucose Point of Care 106 mg/dL (70-110)
[2022-06-09] MEDS: acetaminophen 325 mg Tablet 650 MG PO (20:32)
[2022-06-09] MEDS: primidone 50 mg Tablet PO (20:32)
[2022-06-09] MEDS: lidocaine 5% Patch TRANSDERMA (20:33)
[2022-06-09 20:49] LABS: Glucose Point of Care 150 mg/dL (70-110)
[2022-06-10] VITALS (7 sets, daily range): BP systolic 109–146; BP diastolic 56–78; PULSE 73–85; RESP 16–20; TEMP 36.3–36.6; O2SAT 93–99
[2022-06-10] MEDS: pantoprazole 40 mg SDV IVP (01:32)
[2022-06-10] MEDS: tamsulosin 0.4 mg Capsule PO ×3 (05:06→17:48)
[2022-06-10 06:38] LABS: Glucose Point of Care 170 mg/dL (70-110)
[2022-06-10] MEDS: finasteride 5 mg Tablet PO (09:24)
[2022-06-10] MEDS: metoprolol tartrate 25 mg Tablet PO ×2 (09:24→17:48)
[2022-06-10] MEDS: insulin lispro 100 unit/1 mL SUBCUT ×3 (09:24→17:49)
[2022-06-10] MEDS: isosorbide mononitrate ER 30 mg Tablet PO (09:25)
[2022-06-10] MEDS: sennosides 8.6 mg Tablet PO ×2 (09:25→17:48)
[2022-06-10 11:54] LABS: Glucose Point of Care 217 mg/dL (70-110)
--- NOTE | 2022-06-10 12:00 | PM.PN ---
Subjective Subjective: Urology follow-up: Initially his PVRs were low. Over the last 12 hours though he has had increasing PVRs. Urine has been bloody ever since the catheters been removed. He feels like he needs to void he had about 300 cc on bladder scan. Recommendations: 1. Replace Goncalves catheter (20 [place]) with manual irrigation as needed 2. Consider cystoscopy under anesthesia tomorrow if urine remains bloody to consider fulguration. 3. If his urine does clear he can be discharged with a catheter at home and follow-up on outpatient basis for voiding trial, SCIC, etc. 4. Reviewed in detail with the family. They seem to be in agreement with these options. Medications: Reviewed: Yes Vitals/I&O/Wt Last Vital Signs Temp 97.4 F L 06/10/22 11:55 Pulse 73 06/10/22 11:55 Resp 18 06/10/22 11:55 BP 146/78 06/10/22 11:55 Pulse Ox 98 06/10/22 11:55 O2 Del Method Room Air 06/10/22 11:55 06/09/22 06/10/22 06/10/22 22:59 06:59 14:59 Intake Total 1180 / 1660 200 / 1860 200 / 200 Output Total 75 / 75 25 / 100 40 / 40 Balance 1105 / 1585 175 / 1760 160 / 160 Physical Exam Narrative: Lethargic, some confusion. No acute distress No labored respiration Abdomen this morning was soft, nontender, no distention of the bladder. Urine has been bloody. Some clots. Frail Data 06/07/22 04:35 06/07/22 04:35 A&P Assessment and plan (1) Gross hematuria: Despite the appearance of the urine when the catheter was removed he has had increasing gross hematuria again. Consider cystoscopy under anesthesia clot evacuation fulguration tomorrow (2) Clot retention of urine: Preceded by acute urinary retention without bleeding. Attestations Medical Necessity Statement*: See attending Coding Level of Care Code Acute Code for [facility] Diagnoses Gross hematuria R31.0 Clot retention of urine R33.8
[2022-06-10] MEDS: morphine 4 mg/mL SDV 1 mL 2 MG IVP (13:56)
[2022-06-10] MEDS: LORazepam 0.5 mg Tablet PO (14:15)
[2022-06-10] MEDS: FUROsemide 10 mg/mL SDV 4mL 40 MG IVP (14:19)
[2022-06-10 14:56] LABS: Basophils # 0.1 10^3/uL (0.0-0.1); Basophils % 0.7 %; Eosinophils # 0.3 10^3/uL (0.0-0.8); Eosinophils % 3.3 %; Hematocrit 24.6 % (42.0-52.0); Hemoglobin 7.3 g/dL (11.7-16.6); Lymphocytes # 0.6 10^3/uL (0.8-4.8); Lymphocytes % 7.7 %; Mean Corpuscular HGB Conc 29.7 g/dL (30.0-36.0); Mean Corpuscular Hemoglobin 22.7 pg (28.0-34.0); Mean Corpuscular Volume 76.4 fl (80-94); Mean Platelet Volume 9.2 fL (7.4-10.4); Monocytes # 0.8 10^3/uL (0.2-0.9); Monocytes % 9.7 %; Neutrophils # 6.38 10^3/uL (1.8-7.7); Neutrophils % 77.6 %; Nucleated Red Blood Cells % 0 %; Platelet Count 311 10^3/cmm (130-400); Red Blood Count 3.22 10^6/uL (4.1-5.3); Red Cell Distribution Width 20.6 % (12.1-15.1); White Blood Count 8.2 10^3/uL (4.0-10.0)
[2022-06-10 15:17] LABS: Alanine Aminotransferase 13 U/L (0-41); Albumin Level 3.5 g/dL (3.5-5.2); Alkaline Phosphatase 64 U/L (40-130); Anion Gap 16.5 (5-19); Aspartate Amino Transferase 19 U/L (0-40); Blood Urea Nitrogen 35 mg/dL (8-23); Calcium 8.3 mg/dL (8.5-10.5); Carbon Dioxide 19 mmol/L (22-29); Chloride 100 mmol/L (98-107); Globulin 2.3 g/dL (1.3-4.6); Glucose 95 mg/dL (65-115); Osmolality Calculated 280 mOsm/kg (285-295); Potassium 4.5 mmol/L (3.5-5.1); Sodium 131 mmol/L (136-145); Total Bilirubin 0.2 mg/dL (0.15-1.2); Total Protein 5.8 g/dL (6.6-8.7)
[2022-06-10 16:45] LABS: Glucose Point of Care 168 mg/dL (70-110)
--- NOTE | 2022-06-10 17:39 | PM.PN ---
Subjective Subjective: Patient was seen and examined this morning, due to increasing PVRs, continued hematuria, Goncalves catheter has been replaced back, plan is to do cystoscopy under anesthesia tomorrow in the morning and possible fulguration. Medications: Reviewed: Yes Medication Review Details: Generic Name Dose Route Start Last Admin Trade Name Freq PRN Reason Stop Dose Admin Acetaminophen 650 mg 06/04/22 02:13 06/09/22 20:32 Acetaminophen 32 5 Mg Tablet PO 650 mg Q6H PRN Administration Mild/Mod Pain Or Temp >/= 101 Finasteride 5 mg 06/04/22 11:10 06/10/22 09:24 Finasteride 5 Mg Tablet PO 5 mg DAILY JOSE ANGEL Administration Haloperidol Lactat e 1 mg 06/08/22 03:35 06/08/22 03:56 Haloperidol Inj 5 Mg/Ml Inj 1 Ml IM 1 mg ONCE PRN Administration AGITATION Insulin Human Lisp ro 0 unit 06/04/22 08:00 06/10/22 12:28 Insulin Lispro 1 00 Unit/1 Ml SUBCUT 4 unit TIDWM JOSE ANGEL Administration Protocol Isosorbide Mononit rate 30 mg 06/09/22 09:00 06/10/22 09:25 Isosorbide [place] itrate Er 30 Mg Ta blet PO 30 mg DAILY JOSE ANGEL Administration Lidocaine 0 patch 06/08/22 21:00 06/09/22 20:33 Lidocaine 5% Pat ch TRANSDERMA 1 patch .COMPLEX JOSE ANGEL Administration Lorazepam 0.5 mg 06/08/22 18:52 06/10/22 14:15 Lorazepam 0.5 Mg Tablet PO 0.5 mg Q6H PRN Administration Anxiety Metoprolol Tartrat e 25 mg 06/09/22 09:00 06/10/22 09:24 Metoprolol Tartr ate 25 Mg Tablet PO 25 mg BID JOSE ANGEL Administration Morphine Sulfate 2 mg 06/08/22 17:25 06/10/22 13:56 Morphine 4 Mg/Ml Sdv 1 Ml IVP 2 mg Q4H PRN Administration SEVERE PAIN Ondansetron HCl 4 mg 06/04/22 02:13 06/04/22 06:20 Ondansetron 2 Mg /Ml Sdv 2 Ml IVP 4 mg Q8H PRN Administration vomiting, or N/V if npo Pantoprazole Sodiu m 40 mg 06/04/22 02:13 06/10/22 01:32 Pantoprazole 40 Mg Sdv IVP 40 mg Q24H JOSE ANGLE Administration Primidone 50 mg 06/08/22 21:00 06/09/22 20:32 Primidone 50 Mg Tablet PO 50 mg BEDTIME JOSE ANGEL Administration Senna 8.6 mg 06/09/22 09:00 06/10/22 09:25 Sennosides 8.6 M g Tablet PO 8.6 mg BID JOSE ANGEL Administration Tamsulosin HCl 0.4 mg 06/09/22 09:00 06/10/22 09:25 Tamsulosin 0.4 M g Capsule PO 0.4 mg BID JOSE ANGEL Administration Vitals/I&O/Wt Last Vital Signs Temp 97.9 F 06/10/22 15:38 Pulse 82 06/10/22 15:38 Resp 16 06/10/22 15:38 BP 109/56 06/10/22 15:38 Pulse Ox 96 06/10/22 15:38 O2 Del Method Room Air 06/10/22 15:38 06/10/22 06/10/22 06/10/22 06:59 14:59 22:59 Intake Total 200 / 1860 640 / 640 Output Total 25 / 100 315 / 315 700 / 1015 Balance 175 / 1760 325 / 325 -700 / -375 Physical Exam HENMT: COMMON NORMALS: normocephalic and atraumatic HEAD & SCALP: normocephalic and atraumatic Resp: COMMON NORMALS: clear to auscultation bilaterally AUSCULTATION: clear to auscultation bilaterally Cardio: COMMON NORMALS: regular rate, regular rhythm, S1 normal heart sound present, S2 normal heart sound present, No gallops present (Cardio), No murmurs present (Cardio), No rub (Cardio) and Peripheral pulses 2+ throughout RATE: regular rate RHYTHM: regular rhythm HEART SOUNDS: S1 normal heart sound present and S2 normal heart sound present PERIPHERAL PULSES: Peripheral pulses 2+ throughout GI: COMMON NORMALS: Normal to inspection, nondistended, normoactive bowel sounds present, Soft to palpation, non-tender, No hepatosplenomegaly present and no masses AUSCULTATION: Yes normoactive bowel sounds PALPATION: Yes Soft to palpation and Yes No hepatosplenomegaly present RECTAL EXAM: Yes deferred Extremity: OTHER: 2+ bilateral lower extremity pitting edema Urinary Catheter Management: 2-way Urethral: Cath Placed During This Visit: yes Urinary Catheter Date of Insertion: 06/10/22 Urinary Catheter Time of Insertion: 12:05 Data 06/10/22 14:45 06/10/22 14:45 A&P Assessment and plan (1) Hematuria: (2) Chronic kidney disease: (3) Dyslipidemia: (4) Diabetes mellitus: (5) Severe aortic valve stenosis: (6) Atrial fibrillation: (7) COPD (chronic obstructive pulmonary disease): (8) CHF (congestive heart failure): Qualifiers: Heart failure type: diastolic Heart failure chronicity: chronic Qualified Code(s): I50.32 - Chronic diastolic (congestive) heart failure (9) HTN (hypertension): Qualifiers: Hypertension type: essential hypertension Qualified Code(s): I10 - Essential (primary) hypertension (10) BPH w/o urinary obs/LUTS: Plan Hematuria Currently on CBI. Dark red urine noted in bag. Appreciate urology consult. History of NSTEMI on recent admission less than 15 days ago. Patient also has known severe aortic stenosis. On his last admission hospital course was complicated by development of PAULETTE, hematuria, patient was eventually transferred to [facility] in [place] per his request to be close to family. It appears angiogram was not performed due to risk of PAULETTE. Given his other multiple comorbidities and advanced aortic stenosis and heart failure, patient was transition to hospice. He came home this past Thursday and has been comfortable at home apart from this episode of hematuria. Confirmed goals of care with and those would be to continue hospice, keep patient as comfortable as possible. Plan to return home once hematuria resolves. Currently aspirin and Plavix are both on hold. A-fib Had a couple of elevated heart rates in the emergency room Currently rate controlled Heart failure with preserved ejection fraction: Currently euvolemic Hospice care: Patient is on hospice at home. Continue morphine hypertension: Anti hypertensives on hold, BP maintained off medications History of COPD History of CKD History of microcytic anemia Attestations Medical Necessity Statement*: Needs to be in hospital for management of hematuria. Coding Level of Care Code 00408 Diagnoses Hematuria R31.9 Chronic kidney disease N18.9 Dyslipidemia E78.5 Diabetes mellitus E11.9 Severe aortic valve stenosis I35.0 Atrial fibrillation I48.91 COPD (chronic obstructive pulmonary disease) J44.9 CHF (congestive heart failure) I50.32 Heart failure type: diastolic Heart failure chronicity: chronic HTN (hypertension) I10 Hypertension type: essential hypertension BPH w/o urinary obs/LUTS N40.0
--- NOTE | 2022-06-10 18:55 | PC.NURSE ---
Patient resting in bed, replaced 2 way brown in afternoon, this nurse has had to manually irrigate a couple times throughout shift. Bilateral feet edemitis, SCDS placed during shift, AAOx3. Family at bedside throughout shift, multiple soft stools. No needs at this time, room clean and clutter free with call light in reach.
[2022-06-10] MEDS: primidone 50 mg Tablet PO (20:01)
[2022-06-10 20:52] LABS: Glucose Point of Care 166 mg/dL (70-110)
[2022-06-11] VITALS (11 sets, daily range): BP systolic 118–141; BP diastolic 63–85; PULSE 74–108; RESP 15–18; TEMP 36.3–36.7; O2SAT 94–98
[2022-06-11] MEDS: morphine 4 mg/mL SDV 1 mL 2 MG IVP ×4 (00:48→14:54)
[2022-06-11] MEDS: pantoprazole 40 mg SDV IVP (01:33)
--- NOTE | 2022-06-11 06:00 | PC.NURSE ---
Pt has not had any hematuria tonight. No complaints of pain or any indication of retention. No need for any irrigation. Pt had steady output all night with a total of 1750mls of yellow urine.
[2022-06-11 06:41] LABS: Glucose Point of Care 115 mg/dL (70-110)
[2022-06-11 07:02] LABS: Basophils # 0.1 10^3/uL (0.0-0.1); Basophils % 0.8 %; Eosinophils # 0.2 10^3/uL (0.0-0.8); Eosinophils % 3.9 %; Hematocrit 24.1 % (42.0-52.0); Hemoglobin 7.3 g/dL (11.7-16.6); Lymphocytes # 0.8 10^3/uL (0.8-4.8); Lymphocytes % 12.5 %; Mean Corpuscular HGB Conc 30.3 g/dL (30.0-36.0); Mean Corpuscular Hemoglobin 22.5 pg (28.0-34.0); Mean Corpuscular Volume 74.4 fl (80-94); Mean Platelet Volume 9.6 fL (7.4-10.4); Monocytes # 0.6 10^3/uL (0.2-0.9); Monocytes % 10.5 %; Neutrophils # 4.37 10^3/uL (1.8-7.7); Neutrophils % 71.6 %; Nucleated Red Blood Cells % 0 %; Platelet Count 317 10^3/cmm (130-400); Red Blood Count 3.24 10^6/uL (4.1-5.3); Red Cell Distribution Width 20.5 % (12.1-15.1); White Blood Count 6.1 10^3/uL (4.0-10.0)
[2022-06-11 07:20] LABS: Alanine Aminotransferase 15 U/L (0-41); Albumin Level 3.4 g/dL (3.5-5.2); Alkaline Phosphatase 68 U/L (40-130); Anion Gap 16.1 (5-19); Aspartate Amino Transferase 17 U/L (0-40); Blood Urea Nitrogen 31 mg/dL (8-23); Calcium 8.5 mg/dL (8.5-10.5); Carbon Dioxide 21 mmol/L (22-29); Chloride 100 mmol/L (98-107); Globulin 2.2 g/dL (1.3-4.6); Glucose 104 mg/dL (65-115); Osmolality Calculated 283 mOsm/kg (285-295); Potassium 4.1 mmol/L (3.5-5.1); Sodium 133 mmol/L (136-145); Total Bilirubin 0.3 mg/dL (0.15-1.2); Total Protein 5.6 g/dL (6.6-8.7)
[2022-06-11] MEDS: metoprolol tartrate 25 mg Tablet PO ×2 (08:21→17:14)
[2022-06-11] MEDS: finasteride 5 mg Tablet PO (08:21)
[2022-06-11] MEDS: tamsulosin 0.4 mg Capsule PO ×2 (08:21→17:15)
[2022-06-11] MEDS: sennosides 8.6 mg Tablet PO ×2 (08:21→17:15)
[2022-06-11] MEDS: isosorbide mononitrate ER 30 mg Tablet PO (08:21)
[2022-06-11] MEDS: LORazepam 0.5 mg Tablet PO ×2 (09:31→14:56)
--- NOTE | 2022-06-11 09:40 | PC.NURSE ---
Patient was yelling and wanting to sit up on side of bed. I told patient due to fall risk and being unstable to wait on his nurse to ask before we got him up. He refused to wait and continued to scream for help after trying to reason with him several times. Patient is now set up on side of bed and refuses to lay down.
[2022-06-11 11:59] LABS: Glucose Point of Care 260 mg/dL (70-110)
--- NOTE | 2022-06-11 12:18 | PM.PN ---
Subjective Subjective: Urology follow-up: Initially his urine was bloody when the catheter was placed. It is cleared spontaneously and has not required irrigation. Catheter functioning well. I would hold on surgical intervention at this time. For now I think it would make most sense to leave the catheter in place at discharge (at the discretion of the hospitalist) and then follow-up sometime next week in my office for consideration of voiding trial SCIC maintaining catheter etc. Vitals/I&O/Wt Last Vital Signs Temp 98.1 F 06/11/22 11:25 Pulse 108 H 06/11/22 11:25 Resp 18 06/11/22 11:25 BP 131/72 06/11/22 11:25 Pulse Ox 94 06/11/22 11:25 O2 Del Method Room Air 06/11/22 11:25 06/10/22 06/11/22 06/11/22 22:59 06:59 14:59 Intake Total 340 / 980 0 / 980 200 / 200 Output Total 2100 / 2415 350 / 2765 Balance -1760 / -1435 -350 / -1785 200 / 200 Physical Exam Narrative: More alert today. Cooperative. No acute distress No labored respiration Abdomen this morning was soft, nontender, no distention of the bladder. Urine is clear. No irrigation. No CBI. Frail Urinary Catheter Management: 2-way Urethral: Cath Placed During This Visit: yes Reason for Continuing Indwelling Catheter: Acute Urinary Retention or Obstruction Urinary Catheter Date of Insertion: 06/10/22 Urinary Catheter Time of Insertion: 12:05 Data 06/11/22 06:20 06/11/22 06:20 A&P Assessment and plan (1) Clot retention of urine: Since the catheter was replaced he has had essentially no significant bleeding or clots and did not require any irrigation. Would recommend leaving the catheter in at discharge. Follow-up next week to review options for long-term bladder management including suprapubic tube, indwelling Goncalves catheter, repeat voiding trial SCIC etc. He is on maximal medical therapy currently for BPH/obstruction. Surgical therapy is an option but he is in very poor health and that risk would be significant (2) BPH w/o urinary obs/LUTS: Attestations Medical Necessity Statement*: See attending Coding Level of Care Code Acute Code for [facility] Diagnoses Clot retention of urine R33.8 BPH w/o urinary obs/LUTS N40.0
--- NOTE | 2022-06-11 12:21 | PC.SOCIAL ---
IMM update IMM updated with patient. Verbalized an understanding. Copy PG 2 provided. Initialled, dated, timed, and placed in chart.
[2022-06-11] MEDS: insulin lispro 100 unit/1 mL SUBCUT (13:31)
--- NOTE | 2022-06-11 14:49 | PM.DCS ---
Discharge Providers Date of Admission: 06/04/22 17:54 Date of Discharge: June 11, 2022 Attending Provider at Admission: Tiffanie Lawson MD Attending Provider at Discharge: Domingo Armendariz MD Primary Care Provider: Ny Elizabeth DO Diagnoses at Discharge Discharge Diagnosis (1) Clot retention of urine: Status: Acute (2) BPH w/o urinary obs/LUTS: Status: Acute Reason for Visit Reason for Visit: BLOOD IN OSEI Hospital Course Hospital Course HPI: Vin Loya MD ?77 year old male with a past medical history of atrial fibrillation not on anticoagulation due to anemia, hematuria, heart failure with preserved ejection fraction, hypertension, COPD, CKD, moderate pulm hypertension, history of microcytic anemia, history of aortic stenosis, recent admitted to [facility] for NSTEMI, placed on heparin drip, which had to be stopped due to hematuria, transferred to [place] for consideration of coronary angiography and TAVR, however could not be performed due to deconditioning, PAULETTE, eventually discharged home with Osei catheter in place due to enlarged prostate, with consideration of possible outpatient coronary angiogram based on his clinical progress.? Who presents to [facility] with family due to concerns for hematuria, family tells me that he has been doing better since he got home, appetite improving, mobility improving, however this evening he developed significant hematuria, denies falling, denies pulling on Osei catheter, Osei catheter bag has shine blood, he is on aspirin, Plavix, not on any blood thinners for his A-fib, denies any abdominal pain, no flank pain. Hospital course: Patient was admitted for the management of hematuria urology was on board was placed on CBI, Also underwent cystoscopy during hospital stay which did not showed any significant pathology, patient was continued on CBI, at one point in time once hematuria was clearing Osei catheter was removed, voiding trial was done but given the fact that his PVR was high Osei catheter was placed back, please see urology notes for more details, he was discharged home with Osei catheter, will follow urology as outpatient. Upon discharge aspirin has been continued, Plavix has been held transiently, patient will see urology as outpatient in a week, at that point in time decision regarding reinitiating Plavix can be taken, depending upon his clinical course. Of note it is important to note that patient is on hospice at home. Patient was discharged in stable condition to home.He will continue to follow urology as outpatient. Physical Exam HENMT: COMMON NORMALS: normocephalic and atraumatic HEAD & SCALP: normocephalic and atraumatic Resp: COMMON NORMALS: clear to auscultation bilaterally EFFORT & INSPECTION: Yes symmetric chest movement AUSCULTATION: clear to auscultation bilaterally Cardio: COMMON NORMALS: regular rate, regular rhythm, S1 normal heart sound present, S2 normal heart sound present, No gallops present (Cardio), No murmurs present (Cardio), No rub (Cardio) and Peripheral pulses 2+ throughout RATE: regular rate RHYTHM: regular rhythm HEART SOUNDS: S1 normal heart sound present and S2 normal heart sound present PERIPHERAL PULSES: Peripheral pulses 2+ throughout GI: COMMON NORMALS: Normal to inspection, nondistended, normoactive bowel sounds present, Soft to palpation, non-tender, No hepatosplenomegaly present and no masses AUSCULTATION: Yes normoactive bowel sounds PALPATION: Yes Soft to palpation and Yes No hepatosplenomegaly present RECTAL EXAM: Yes deferred Extremity: COMMON NORMALS: no clubbing, cyanosis or edema and no pedal edema Urinary Catheter Management: 2-way Urethral: Cath Placed During This Visit: yes Reason for Continuing Indwelling Catheter: Acute Urinary Retention or Obstruction Urinary Catheter Date of Insertion: 06/10/22 Urinary Catheter Time of Insertion: 12:05 Discharge Data Studies Completed and Pending Completed Studies During Hospitalization Category Date Time Status CT abdomen pelvis w con* [id number] Stat Cat Scan 06/03/22 19:10 Completed Radiology Impressions Abdomen/Pelvis CT 06/03/22 19:10 IMPRESSION: 1. No acute renal findings, suspicious renal mass or obstructing calculi. 2. Enlarged prostate with abnormal bladder wall thickening. See discussion above. Cystoscopy should be considered. 3. Incidentally noted is large stool burden with probable minimal stercoral proctitis. Otherwise no small bowel obstruction or other acute bowel findings. 4. Somewhat distended gallbladder. See discussion above. 5. Coronary calcification and lower thoracic findings as above. 6. Hiatal/umbilical hernia and other nonacute findings as above. COMMENTS: Consistent with the [place] [employer]'s Incidental Findings Committee white paper (J Am Alfredo Radiol 2018): Any incidental renal lesion less than 1 cm or classified as too small to characterize, or any incidental cystic renal lesion characterized as simple-appearing, is likely benign. No follow-up imaging is recommended for these lesions per consensus recommendations based on imaging criteria. Laboratory Results WBC 6.1 10^3/uL (4.0-10.0) 06/11/22 06:20 RBC 3.24 10^6/uL (4.1-5.3) L 06/11/22 06:20 Hgb 7.3 g/dL (11.7-16.6) L 06/11/22 06:20 Hct 24.1 % (42.0-52.0) L 06/11/22 06:20 MCV 74.4 fl (80-94) L 06/11/22 06:20 MCH 22.5 pg (28.0-34.0) L 06/11/22 06:20 MCHC 30.3 g/dL (30.0-36.0) 06/11/22 06:20 RDW 20.5 % (12.1-15.1) H 06/11/22 06:20 Plt Count 317 10^3/cmm (130-400) 06/11/22 06:20 MPV 9.6 fL (7.4-10.4) 06/11/22 06:20 Neut % (Auto) 71.6 % 06/11/22 06:20 Lymph % (Auto) 12.5 % 06/11/22 06:20 Kerr % (Auto) 10.5 % 06/11/22 06:20 Eos % (Auto) 3.9 % 06/11/22 06:20 Baso % (Auto) 0.8 % 06/11/22 06:20 Neut # (Auto) 4.37 10^3/uL (1.8-7.7) 06/11/22 06:20 Lymph # (Auto) 0.8 10^3/uL (0.8-4.8) 06/11/22 06:20 Kerr # (Auto) 0.6 10^3/uL (0.2-0.9) 06/11/22 06:20 Eos # (Auto) 0.2 10^3/uL (0.0-0.8) 06/11/22 06:20 Baso # (Auto) 0.1 10^3/uL (0.0-0.1) 06/11/22 06:20 Nucleated RBC % (auto) 0 % 06/11/22 06:20 Nucleated RBCs # 0.0 /100WBC 06/11/22 06:20 PT 15.40 SECONDS (12.1-14.9) H 06/03/22 23:45 INR 1.18 (0.8-1.2) 06/03/22 23:45 Sodium 133 mmol/L (136-145) L 06/11/22 06:20 Potassium 4.1 mmol/L (3.5-5.1) 06/11/22 06:20 Chloride 100 mmol/L (98-107) 06/11/22 06:20 Carbon Dioxide 21 mmol/L (22-29) L 06/11/22 06:20 Anion Gap 16.1 (5-19) 06/11/22 06:20 BUN 31 mg/dL (8-23) H 06/11/22 06:20 Creatinine 1.4 mg/dL (0.7-1.2) H 06/11/22 06:20 GFR Calculation Not Reportable 06/11/22 06:20 Glucose 104 mg/dL (65-115) 06/11/22 06:20 POC Glucose 260 mg/dL (70-110) H 06/11/22 11:47 Calculated Osmolality 283 mOsm/kg (285-295) L 06/11/22 06:20 Calcium 8.5 mg/dL (8.5-10.5) 06/11/22 06:20 Total Bilirubin 0.3 mg/dL (0.15-1.2) 06/11/22 06:20 AST 17 U/L (0-40) 06/11/22 06:20 ALT 15 U/L (0-41) 06/11/22 06:20 Alkaline Phosphatase 68 U/L (40-130) 06/11/22 06:20 Total Protein 5.6 g/dL (6.6-8.7) L 06/11/22 06:20 Albumin 3.4 g/dL (3.5-5.2) L 06/11/22 06:20 Globulin 2.2 g/dL (1.3-4.6) 06/11/22 06:20 Vitals Last Vital Signs Temp 98.1 F 06/11/22 11:25 Pulse 108 H 06/11/22 11:25 Resp 18 06/11/22 11:25 BP 131/72 06/11/22 11:25 Pulse Ox 94 06/11/22 11:25 O2 Del Method Room Air 06/11/22 11:25 Discharge Plan Discharge Patient Disposition: Hospice - Home Condition: Stable Prescriptions: Continued lansoprazole 30 mg capsule,delayed release(DR/EC) 30 mg PO QAM furosemide [Lasix] 40 mg tablet 40 mg PO DAILY PRN (Reason: Edema) Rx Instructions: Must have follow-up for further refills tamsulosin 0.4 mg capsule 0.4 mg PO BID Rx Instructions: TAKE ONE CAPSULE BY MOUTH TWICE DAILY aspirin 81 mg tablet,chewable 81 mg PO DAILY isosorbide mononitrate 30 mg tablet extended release 24 hr 30 mg PO DAILY hydralazine 25 mg tablet 25 mg PO TID Senna Lax 8.6 mg tablet 8.6 mg PO BID metoprolol tartrate 25 mg tablet 25 mg PO BID primidone 50 mg tablet 50 mg PO BEDTIME morphine concentrate 100 mg/5 mL (20 mg/mL) solution 5 mg PO Q4H PRN (Reason: Pain) ondansetron 8 mg tablet,disintegrating 8 mg PO Q8H PRN (Reason: Nausea And Vomiting) lorazepam 0.5 mg tablet 0.5 mg PO Q6H PRN (Reason: Anxiety) hyoscyamine sulfate 0.125 mg tablet, sublingual 0.125 mg PO Q4H PRN (Reason: Spasms) Lidoderm 5 % adhesive patch,medicated See Rx Instructions .ROUTE .COMPLEX Rx Instructions: 1 patch topically 12 hours on 12 hours off potassium chloride 20 mEq tablet extended release 20 meq PO DAILY Held clopidogrel 75 mg tablet 75 mg PO DAILY Hold Instructions: Resume on 06/25/22. Keep it on hold till ou seehe urologist as outpatient,decision to restart can be taken at that time. Discharge Orders: Discharge Order (Routine); Ordered 06/11/22 Ordered By: Domingo Armendariz Referrals: Rahul Roca MD [Physician] - 06/19/22 1:00 pm (DR SINDHU RAY WILL CALL WITH APPOINTMEBT) Ny Elizabeth DO [Primary Care Provider] - 06/19/22 10:00 am Patient Instructions: Osei Catheter Care, Hematuria - Male, Heart Failure (ED), Osei Catheter Placement and Care (GEN), Urinary Leg Bag (GEN), CHF Stoplight, Opioid Safety Discharge Attestations Time Spent in Discharge Care*: less than 30 min Quality Metrics Clinical Quality Measures [ No reported AMI, CVA or VTE this stay] Coding Level of Care Code Acute Code for Chg Fwd Diagnoses Clot retention of urine R33.8 BPH w/o urinary obs/LUTS N40.0
[2022-06-11 16:34] LABS: Glucose Point of Care 100 mg/dL (70-110)
--- NOTE | 2022-06-11 18:14 | PC.NURSE ---
Ems arrived to take patient HHC with hospice, called and expecting patient with all questions answered. Goncalves in place upon discharge.
== END 2022-06-11 18:13 | disposition hospice, home (50) | DRG 698 ==
LOC: ER 18:05 → ER IP 23:09 → MEDSURG 06-04 07:43
PROVIDERS: Family Medicine; Admitting Provider Student in an Organized Health Care Education/Training Program; Emergency Provider Emergency Medicine; PCP Family Medicine; Visit Provider Internal Medicine
DX: N32.89 Other specified disorders of bladder (principal); I21.4 Non-ST elevation (NSTEMI) myocardial infarction; I13.0 Hypertensive heart and chronic kidney disease with heart failure and stage 1 through stage 4 chronic kidney disease, or unspecified chronic kidney disease; I50.32 Chronic diastolic (congestive) heart failure; R31.0 Gross hematuria; I48.91 Unspecified atrial fibrillation; D63.1 Anemia in chronic kidney disease; N18.9 Chronic kidney disease, unspecified; E11.22 Type 2 diabetes mellitus with diabetic chronic kidney disease; J44.9 Chronic obstructive pulmonary disease, unspecified; I27.20 Pulmonary hypertension, unspecified; I35.0 Nonrheumatic aortic (valve) stenosis; Z79.82 Long term (current) use of aspirin; Z79.891 Long term (current) use of opiate analgesic; N40.1 Benign prostatic hyperplasia with lower urinary tract symptoms; N13.8 Other obstructive and reflux uropathy; Z87.891 Personal history of nicotine dependence; E78.5 Hyperlipidemia, unspecified; R97.20 Elevated prostate specific antigen [PSA]
CPT/HCPCS: 36415; 36416; 51702; 51798; 74177; 80048; 80053; 82962; 85025; 85610; 94664; 96365; 96372; 97161; 99285; C9113; G0378; J0696; J1630; J1815; J1940; J2060; J2270; J2405; Q9967